=== PATIENT | female | born 1960 | race Caucasian/White ===

== ENCOUNTER 2018-02-16 11:01 | Emergency (ER) | payer MEDICARE ==
[2018-02-16 11:40] VITALS: O2SAT 97
[2018-02-16] MEDS ORDERED: MORPHINE SULFATE 4 MG INJ IV ONE ×2 (11:49→13:53)
[2018-02-16] MEDS ORDERED: Pepcid 20 MG VIAL IV ONE ×2 (11:49→11:56)
[2018-02-16] MEDS ORDERED: Zofran 4 MG/2 ML VIAL IV ONE (11:49)
[2018-02-16] MEDS ORDERED: Zofran 4 MG/2 ML VIAL ONE (11:55)
[2018-02-16] MEDS ORDERED: MORPHINE SULFATE 4 MG INJ ONE (11:56)
--- NOTE | 2018-02-16 12:01 | ERPHSYRPT ---
- History of Present Illness Time Seen by Provider: 02/16/18 11:53 Historian: patient Patient Subjective Stated Complaint: sudden onset of upper abd pain 15 min prior to arrival. hx of AAA. states pain is like cramping. denies any n/v at this time. Triage Nursing Assessment: patient to room per w/c. moaning and holding upper abd. restless on cart. skin w/d, color normal, resp easy. abd soft, tender upper abd. Physician History: The patient is a morbidly obese 57-year-old female with family complaining of onset of upper abdominal/chest pain prior to arrival. She denies nausea, vomiting, or diarrhea. She is having some difficulty breathing but it hurts to breath. She has sa known abdominal aortic aneurysm. She denies fever or chills. Past medical history significant for lupus anticoagulant, AAA, morbid obesity, hypertension, and high cholesterol. Timing/Duration: today, hour(s) (30 min), sudden, worse Activities at Onset: sleep Quality: sharpness, stabbing Abdominal Pain Onset Location: epigastric Pain Radiation: chest Severity of Pain-Max: severe Severity of Pain-Current: severe Modifying Factors: Improves With: nothing Associated Symptoms: shortness of breath, No nausea, No vomiting Previous symptoms: no prior history Allergies/Adverse Reactions: oxytetracycline [From Terramycin] Allergy (Verified 02/16/18 11:40) oxytetracycline HCl [From Terramycin] Allergy (Verified 02/16/18 11:40) Penicillins Allergy (Verified 02/16/18 11:40) Home Medications: Metoprolol Succinate [Toprol Xl] 100 mg PO DAILY 07/31/14 [History] Pramipexole Di-HCl [Mirapex] 1 mg PO HS 07/31/14 [History] Quinapril HCl 40 mg PO DAILY 07/31/14 [History] Rosuvastatin Calcium [Crestor] 20 mg PO HS 07/31/14 [History] Warfarin Sodium 5 mg [Coumadin 5 MG] 5 mg PO DAILY 07/31/14 [History] Duloxetine HCl [Cymbalta] 120 mg PO DAILY 02/16/18 [History] Temazepam 30 mg PO HSPRN PRN 02/16/18 [History] clonazePAM [Klonopin] 1 mg PO HS 02/16/18 [History] Hx Tetanus, Diphtheria Vaccination/Date Given: No Hx Influenza Vaccination/Date Given: Yes Hx Pneumococcal Vaccination/Date Given: Yes - Review of Systems Constitutional: No Fever, No Chills Eyes: No Symptoms Ears, Nose, & Throat: No Symptoms Respiratory: Dyspnea Cardiac: Chest Pain Abdominal/Gastrointestinal: Abdominal Pain, No Nausea, No Vomiting, No Diarrhea Genitourinary Symptoms: No Dysuria Musculoskeletal: No Back Pain, No Neck Pain Skin: No Rash Neurological: No Dizziness, No Focal Weakness, No Sensory Changes Psychological: No Symptoms Endocrine: No Symptoms Hematologic/Lymphatic: No Symptoms Immunological/Allergic: No Symptoms All Other Systems: Reviewed and Negative - Past Medical History Pertinent Past Medical History: Yes Neurological History: TIA ENT History: No Pertinent History Cardiac History: Hypertension Respiratory History: No Pertinent History Endocrine Medical History: Diabetes Type II Musculoskeletal History: Other GI Medical History: No Pertinent History History: No Pertinent History Psycho-Social History: Depression Female Reproductive Disorders: No Pertinent History Other Medical History: 2 LEAKY VALVES, LUPUS ANTICOAGULOPATHY - Past Surgical History Past Surgical History: Yes Cardiac: Cardiac Catheterization, Cardiac Stent Musculoskeletal: Orthopedic Surgery Female Surgical History: Hysterectomy, Dilation & Curettage Other Surgical History: CARPAL TUNNEL-RIGHT WRIST, RIGHT FOOT - Social History Smoking Status: Current every day smoker How long have you smoked: yrs Exposure to second hand smoke: No Drug Use: none Patient Lives Alone: Yes - Female History Hx Now: No - Nursing Vital Signs Nursing Vital Signs: Initial Vital Signs Temperature 97.9 F 02/16/18 11:27 Pulse Rate 81 02/16/18 11:27 Respiratory Rate 18 02/16/18 11:27 Blood Pressure 181/88 02/16/18 11:27 O2 Sat by Pulse Oximetry 97 02/16/18 11:27 Pain Scale Pain Intensity 8 - Physical Exam General Appearance: moderate distress, obese Eye Exam: PERRL/EOMI, eyes nml inspection Ears, Nose, Throat Exam: normal ENT inspection, pharynx normal, moist mucous membranes Neck Exam: normal inspection, non-tender, supple, full range of motion Respiratory Exam: normal breath sounds, lungs clear, No respiratory distress Cardiovascular Exam: regular rate/rhythm, normal heart sounds Gastrointestinal/Abdomen Exam: tenderness, No pulsatile mass Pelvic Exam: not done Rectal Exam: not done Back Exam: normal inspection, normal range of motion, No CVA tenderness, No vertebral tenderness Extremity Exam: normal inspection, normal range of motion, pelvis stable Neurologic Exam: alert, oriented x 3, cooperative, normal mood/affect, nml cerebellar function, sensation nml, No motor deficits Skin Exam: normal color, warm, dry SpO2 Interpretation: normal SpO2: 97 Oxygen Delivery: Room Air - Course EKG Interpreted by Me: RATE, Sinus Rhythm, NORMAL AXIS, NORMAL INTERVALS, NORMAL QRS, Other (no change compared to EKG from 08/01/14.) - CT Exams Chest CT Interpretation: Negative, Tele-radiologist Report (per Dr King), Other (aorta mildly arteriosclerotic without aneurysmal dilatation.) Abdomen/Pelvis CT Interpretation: Tele-radiologist Report (per Dr King.), Other (moderate aortoiliac calcifications without aneurysmal dilatation. bilateral renal cysts) Ordered Tests: Active Orders 24 hr Category Date Time Status EKG-ER Only STAT Care 02/16/18 11:49 Active IV Insertion STAT Care 02/16/18 11:49 Active ABDOMEN AND PELVIS W/0 CONTRAS [CT] Stat Exams 02/16/18 11:50 Completed CHEST WITHOUT CONTRAST [CT] Stat Exams 02/16/18 11:52 Completed CBC W DIFF Stat Lab 02/16/18 12:06 Completed CMP Stat Lab 02/16/18 12:06 Completed D-DIMER QUANTITATION Stat Lab 02/16/18 12:06 Completed LIPASE Stat Lab 02/16/18 12:06 Completed Lactic Acid Stat Lab 02/16/18 12:04 Completed Manual Differential NC Stat Lab 02/16/18 12:06 Completed PT INR [PROTIME WITH INR] Stat Lab 02/16/18 13:56 Completed TROPONIN Q3H Lab 02/16/18 12:06 Completed TROPONIN Q3H Lab 02/16/18 15:00 Ordered TROPONIN Q3H Lab 02/16/18 18:00 Ordered TROPONIN Q3H Lab 02/16/18 21:00 Ordered TROPONIN Q3H Lab 02/17/18 00:00 Ordered UA W/RFX UR CULTURE Stat Lab 02/16/18 11:50 Uncollected Medication Summary Discontinued Medications Generic Name Dose Route Start Last Admin Trade Name Freq PRN Reason Stop Dose Admin Famotidine 20 mg 02/16/18 11:49 02/16/18 11:59 Pepcid 20 Mg Vial IV 02/16/18 11:50 20 mg STAT ONE Administration Famotidine Confirm 02/16/18 11:56 Pepcid 20 Mg Vial Administered 02/16/18 11:57 Dose 20 mg IV .STK-MED ONE Morphine Sulfate 4 mg 02/16/18 11:49 02/16/18 11:59 Morphine Sulfate 4 Mg Inj IV 02/16/18 11:50 4 mg STAT ONE Administration Morphine Sulfate Confirm 02/16/18 11:56 Morphine Sulfate 4 Mg Inj Administered 02/16/18 11:57 Dose 4 mg .ROUTE .STK-MED ONE Morphine Sulfate 8 mg 02/16/18 13:53 Morphine Sulfate 4 Mg Inj IV 02/16/18 13:54 STAT ONE Ondansetron HCl 4 mg 02/16/18 11:49 02/16/18 12:00 Zofran 4 Mg/2 Ml Vial IV 02/16/18 11:50 4 mg STAT ONE Administration Ondansetron HCl Confirm 02/16/18 11:55 Zofran 4 Mg/2 Ml Vial Administered 02/16/18 11:56 Dose 4 mg .ROUTE .STK-MED ONE Lab/Rad Data: Laboratory Result Diagrams 02/16/18 12:06 02/16/18 12:06 Laboratory Results 02/16/18 02/16/18 02/16/18 Range/Units 13:56 12:06 12:06 WBC (4.0-10.5) K/mm3 RBC (4.1-5.4) M/mm3 Hgb (12.0-16.0) gm/dl Hct (35-47) % MCV (78-100) fl MCH (26-32) pg MCHC (32-36) g/dl RDW (11.5-14.0) % Plt Count (150-450) K/mm3 MPV (6-9.5) fl Absolute Granulocytes (1.4-6.9) PT 17.1 H (9.95-12.35) SECONDS INR 1.46 (0.8-3.0) D-Dimer 547 H* (215-500) ng/mL Sodium (137-145) mmol/L Potassium (3.5-5.1) mmol/L Chloride (98-107) mmol/L Carbon Dioxide (22-30) mmol/L Anion Gap (5-15) MEQ/L BUN (7-17) mg/dL Creatinine (0.52-1.04) mg/dL Estimated GFR ML/MIN Glucose (74-106) mg/dL Lactic Acid (0.4-2.0) Calcium (8.4-10.2) mg/dL Total Bilirubin (0.2-1.3) mg/dL AST (14-36) U/L ALT (0-35) U/L Alkaline Phosphatase (38-126) U/L Troponin I 0.019 (0.000-0.034) ng/mL Serum Total Protein (6.3-8.2) g/dL Albumin (3.5-5.0) g/dL Lipase (23-300) U/L 02/16/18 02/16/18 02/16/18 Range/Units 12:06 12:06 12:04 WBC 9.4 (4.0-10.5) K/mm3 RBC 4.01 L (4.1-5.4) M/mm3 Hgb 11.9 L (12.0-16.0) gm/dl Hct 37.3 (35-47) % MCV 93.0 (78-100) fl MCH 29.6 (26-32) pg MCHC 31.9 L (32-36) g/dl RDW 15.9 H (11.5-14.0) % Plt Count 121 L (150-450) K/mm3 MPV 10.9 H (6-9.5) fl Absolute Granulocytes 6.50 (1.4-6.9) PT (9.95-12.35) SECONDS INR (0.8-3.0) D-Dimer (215-500) ng/mL Sodium 144 (137-145) mmol/L Potassium 4.5 (3.5-5.1) mmol/L Chloride 110 H (98-107) mmol/L Carbon Dioxide 22 (22-30) mmol/L Anion Gap 16.0 H (5-15) MEQ/L BUN 27 H (7-17) mg/dL Creatinine 1.80 H (0.52-1.04) mg/dL Estimated GFR 30.7 ML/MIN Glucose 100 (74-106) mg/dL Lactic Acid 1.0 (0.4-2.0) Calcium 9.1 (8.4-10.2) mg/dL Total Bilirubin 0.40 (0.2-1.3) mg/dL AST 23 (14-36) U/L ALT 20 (0-35) U/L Alkaline Phosphatase 109 (38-126) U/L Troponin I (0.000-0.034) ng/mL Serum Total Protein 7.2 (6.3-8.2) g/dL Albumin 4.0 (3.5-5.0) g/dL Lipase 177 (23-300) U/L - Progress Progress: improved Progress Note: 02/16/18 14:32 I discussed pt with Dr Villarreal and Dr Jacobs Counseled pt/family regarding: lab results, diagnosis, rad results - Departure Time of Disposition: 14:30 Departure Disposition: Transfer (transfer to [facility] ER per Dr Chambers and PMD Dr Jacobs) Clinical Impression: Abdominal pain Condition: Stable Critical Care Time: No Referrals: HEMAL JACOBS [Primary Care Provider] -
[2018-02-16 12:14] LABS: Hematocrit 37.3 % (35-47); Hemoglobin 11.9 gm/dl (12.0-16.0); Mean Corpuscular Hgb Concent. 31.9 g/dl (32-36); Mean Platelet Volume 10.9 fl (6-9.5); Platelet Count 121 K/mm3 (150-450); Red Blood Count 4.01 M/mm3 (4.1-5.4); Red Cell Distribution Width 15.9 % (11.5-14.0); White Blood Count 9.4 K/mm3 (4.0-10.5)
[2018-02-16 12:27] LABS: Mean Corpuscular Hemoglobin 29.6 pg (26-32)
[2018-02-16 12:32] LABS: BILIRUBIN,TOTAL 0.4 mg/dL (0.2-1.3); Calcium 9.1 mg/dL (8.4-10.2); Creatinine 1 1.8 mg/dL (0.52-1.04); Potassium 4.5 mmol/L (3.5-5.1); Total Protein 7.2 g/dL (6.3-8.2)
--- NOTE | 2018-02-16 13:16 | XRAY ---
Indication: Short of breath. Lower chest/upper abdomen pain. Multiple contiguous axial images obtained through the chest without contrast as ordered. Comparison: None Mid to lower lungs demonstrates bilateral subsegmental atelectasis/scarring. Also mild bilateral dependent atelectasis and tiny calcified granuloma in the right middle and left lower lobes. No suspicious pulmonary mass, infiltrate, or effusion. Heart is enlarged. Aorta is mildly arteriosclerotic without aneurysmal dilatation. A few bilateral hilar and subcarinal calcified nodes. No pathologic mediastinal lymphadenopathy. Bony thorax intact with minimal degenerative changes throughout the spine. T10 vertebral hemangioma and superior T11 Schmorl node[address] CT abdomen reported separately. Impression: 1. Cardiomegaly, scattered atelectasis/scarring, and evidence for old granulomatous disease. 2. No acute cardiopulmonary abnormalities on this noncontrast exam. 3. Incidental T10 vertebral hemangioma and T11 Schmorl node. CT DI 21.10
--- NOTE | 2018-02-16 13:24 | XRAY ---
Indication: Short of breath. Lower chest/upper abdomen pain. Multiple contiguous axial images obtained through the abdomen and pelvis without contrast as ordered. Comparison: None CT chest reported separately. Study slightly degraded by respiration artifact. Noncontrasted stomach and bowel loops appear nonobstructed. Appendix not seen. No free fluid/air. There are multiple bilateral renal cysts, largest right mid to lower pole measuring 3.8 cm. Slightly more dense left mid to lower renal cortical cysts possibly more complex/viscus. Previous hysterectomy. Remaining liver, gallbladder, pancreas, spleen, adrenal glands, kidneys, ureters, and bladder appear unremarkable for noncontrast exam. Moderate aortoiliac calcifications without aneurysmal dilatation. Osseous structures intact. Small fatty umbilical hernia. Impression: 1. Bilateral renal cysts. Slightly dense left lower renal cysts possibly complex/viscus. Renal sonogram may yield further information if clinically warranted. 2. Small fatty umbilical hernia. 3. Remaining CT abdomen/pelvis without contrast exam is negative. CT DI 28.11
[2018-02-16 14:02] LABS: INR 1.46 (0.8-3.0)
[2018-02-16] MEDS ORDERED: MORPHINE SULFATE 10 MG/ML ONE (14:48)
[2018-02-16 15:32] VITALS: BP 140/41
[2018-02-16 15:35] VITALS: PULSE 76
== END 2018-02-16 16:15 | disposition short-term general hospital (02) ==
LOC: ED 11:01
DX: R10.9 Unspecified abdominal pain (principal); R07.9 Chest pain, unspecified; I71.4 Abdominal aortic aneurysm, without rupture; Z79.01 Long term (current) use of anticoagulants; Z79.899 Other long term (current) drug therapy
CPT/HCPCS: 36000; 36415; 71250; 74176; 80053; 83605; 83690; 84484; 85025; 85379; 85610; 93005; 96374; 96375; 96376; 99285; J2270; J2405

== ENCOUNTER 2018-03-31 21:45 | Emergency (ER) | payer MEDICARE ==
--- NOTE | 2018-03-31 22:06 | ERPHSYRPT ---
- History of Present Illness Time Seen by Provider: 03/31/18 21:50 Source: patient, family Exam Limitations: no limitations Physician History: 57 y/o white female with h/o stroke with chronic right side weakness and paresthesias, presents with pain under right breast for 2 days. sx worsening. pain in area with deep inspiration. no cough. no rash. pt still has gallbladder in place. Timing/Duration: day(s) (2), intermittent, worse Activities at Onset: none Severity of Dyspnea-Max: none Severity of Dyspnea-Current: none Possible Cause: occasional episodes (in last 2 days) Modifying Factors: Improves With: deep breath (worsens) Associated Symptoms: intermittent, chest pain/discomfort (right side), No fever , No loss of appetite, No wheezing, No hemoptysis, No calf pain, No lightheadedness, No leg swelling Allergies/Adverse Reactions: amoxicillin Allergy (Verified 03/31/18 22:04) oxytetracycline [From Terramycin] Allergy (Verified 02/16/18 11:40) oxytetracycline HCl [From Terramycin] Allergy (Verified 02/16/18 11:40) Penicillins Allergy (Verified 02/16/18 11:40) Home Medications: Metoprolol Succinate [Toprol Xl] 100 mg PO DAILY 07/31/14 [History] Pramipexole Di-HCl [Mirapex] 1 mg PO HS 07/31/14 [History] Quinapril HCl 40 mg PO DAILY 07/31/14 [History] Rosuvastatin Calcium [Crestor] 20 mg PO HS 07/31/14 [History] Warfarin Sodium 5 mg [Coumadin 5 MG] 5 mg PO DAILY 07/31/14 [History] Duloxetine HCl [Cymbalta] 120 mg PO DAILY 02/16/18 [History] Temazepam 30 mg PO HSPRN PRN 02/16/18 [History] clonazePAM [Klonopin] 1 mg PO HS 02/16/18 [History] Hx Tetanus, Diphtheria Vaccination/Date Given: No Hx Influenza Vaccination/Date Given: Yes Hx Pneumococcal Vaccination/Date Given: Yes - Review of Systems Constitutional: No Symptoms, No Fever Eyes: No Symptoms, No Discharge, No Eye Pain Ears, Nose, & Throat: No Symptoms, No Ear Pain, No Ear Discharge Respiratory: No Symptoms, No Cough, No Dyspnea, No Stridor, No Wheezing Cardiac: No Symptoms, No Chest Pain, No Palpitations, No Syncope Abdominal/Gastrointestinal: No Symptoms, No Abdominal Pain, No Nausea, No Vomiting, No Diarrhea Genitourinary Symptoms: No Symptoms, No Dysuria, No Frequency, No Hematuria Musculoskeletal: No Symptoms, Other (right chest wall pain) Skin: No Symptoms Neurological: No Symptoms Psychological: No Symptoms Endocrine: No Symptoms Hematologic/Lymphatic: No Symptoms Immunological/Allergic: No Symptoms All Other Systems: Reviewed and Negative - Past Medical History Pertinent Past Medical History: Yes Neurological History: TIA ENT History: No Pertinent History Cardiac History: Hypertension Respiratory History: No Pertinent History Endocrine Medical History: Diabetes Type II Musculoskeletal History: Other GI Medical History: No Pertinent History History: No Pertinent History Psycho-Social History: Depression Female Reproductive Disorders: No Pertinent History Other Medical History: 2 LEAKY VALVES, LUPUS ANTICOAGULOPATHY - Past Surgical History Past Surgical History: Yes Cardiac: Cardiac Catheterization, Cardiac Stent Respiratory: No Pertinent History Gastrointestinal: No Pertinent History Genitourinary: No Pertinent History Musculoskeletal: Orthopedic Surgery Female Surgical History: Hysterectomy, Dilation & Curettage Other Surgical History: CARPAL TUNNEL-RIGHT WRIST, RIGHT FOOT - Social History Smoking Status: Current every day smoker How long have you smoked: yrs Exposure to second hand smoke: No Drug Use: none Patient Lives Alone: Yes - Nursing Vital Signs Nursing Vital Signs: Initial Vital Signs Temperature 97.7 F 03/31/18 21:47 Pulse Rate 82 03/31/18 21:47 Blood Pressure 112/54 03/31/18 21:47 O2 Sat by Pulse Oximetry 95 03/31/18 21:47 Pain Scale Pain Intensity 6 - Physical Exam General Appearance: no apparent distress, alert, anxiety Eye Exam: PERRL/EOMI, No eyes nml inspection Ears, Nose, Throat Exam: hearing grossly normal, normal ENT inspection, normal pharynx Neck Exam: normal inspection, non-tender, supple, full range of motion Respiratory Exam: normal breath sounds, chest tenderness (right chest wall), lungs clear, airway intact, No respiratory distress, No accessory muscle use, No rhonchi, No wheezing, No stridor Cardiovascular/Chest Exam: normal heart sounds, regular rate/rhythm, murmur Abdominal/Gastrointestinal Exam: soft, normal bowel sounds, tenderness (? 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 STAT Care 03/31/18 22:12 Active IV Insertion STAT Care 03/31/18 22:08 Active CHEST 1 VIEW (PORTABLE) Stat Exams 03/31/18 22:12 Taken AMYLASE Stat Lab 03/31/18 22:27 Completed CBC W DIFF Stat Lab 03/31/18 22:27 Completed CMP Stat Lab 03/31/18 22:27 Completed NT PRO BNP Stat Lab 03/31/18 22:27 Completed PROTIME WITH INR Stat Lab 03/31/18 22:27 Completed Medication Summary Generic Name Dose Route Start Last Admin Trade Name Freq PRN Reason Stop Dose Admin Potassium Chloride 40 meq 04/01/18 23:21 Potassium Chl 40 Meq/30 Ml Oral Solution PO 04/01/18 23:22 STAT ONE Lab/Rad Data: Laboratory Result Diagrams 03/31/18 22:27 03/31/18 22:27 Laboratory Results 03/31/18 03/31/18 03/31/18 Range/Units 22:27 22:27 22:27 WBC (4.0-10.5) K/mm3 RBC (4.1-5.4) M/mm3 Hgb (12.0-16.0) gm/dl Hct (35-47) % MCV (78-100) fl MCH (26-32) pg MCHC (32-36) g/dl RDW (11.5-14.0) % Plt Count (150-450) K/mm3 MPV (6-9.5) fl Gran % (36.0-66.0) % Eos # (Auto) (0-0.5) Absolute Lymphs (auto) (1.0-4.6) Absolute Monos (auto) (0.0-1.3) Lymphocytes % (24.0-44.0) % Monocytes % (0.0-12.0) % Eosinophils % (0.00-5.0) % Basophils % (0.0-0.4) % Absolute Granulocytes (1.4-6.9) Basophils # (0-0.4) PT 53.6 H (9.95-12.35) SECONDS INR 4.54 H (0.8-3.0) Sodium 140 (137-145) mmol/L Potassium 2.9 L* (3.5-5.1) mmol/L Chloride 96 L (98-107) mmol/L Carbon Dioxide 29 (22-30) mmol/L Anion Gap 17.8 H (5-15) MEQ/L BUN 51 H (7-17) mg/dL Creatinine 3.08 H (0.52-1.04) mg/dL Estimated GFR 16.5 ML/MIN Glucose 137 H (74-106) mg/dL Calcium 9.2 (8.4-10.2) mg/dL Total Bilirubin 0.50 (0.2-1.3) mg/dL AST 16 (14-36) U/L ALT 17 (0-35) U/L Alkaline Phosphatase 111 (38-126) U/L NT-Pro-B Natriuret Pep 526 (0-900) pg/mL Serum Total Protein 7.2 (6.3-8.2) g/dL Albumin 4.1 (3.5-5.0) g/dL Amylase 98 (30-110) U/L 03/31/18 Range/Units 22:27 WBC 12.9 H (4.0-10.5) K/mm3 RBC 3.81 L (4.1-5.4) M/mm3 Hgb 11.6 L (12.0-16.0) gm/dl Hct 35.7 (35-47) % MCV 93.7 (78-100) fl MCH 30.4 (26-32) pg MCHC 32.5 (32-36) g/dl RDW 16.3 H (11.5-14.0) % Plt Count 193 (150-450) K/mm3 MPV 10.6 H (6-9.5) fl Gran % 67.3 H (36.0-66.0) % Eos # (Auto) 0.45 (0-0.5) Absolute Lymphs (auto) 2.92 (1.0-4.6) Absolute Monos (auto) 0.83 (0.0-1.3) Lymphocytes % 22.6 L (24.0-44.0) % Monocytes % 6.4 (0.0-12.0) % Eosinophils % 3.5 (0.00-5.0) % Basophils % 0.2 (0.0-0.4) % Absolute Granulocytes 8.68 H (1.4-6.9) Basophils # 0.02 (0-0.4) PT (9.95-12.35) SECONDS INR (0.8-3.0) Sodium (137-145) mmol/L Potassium (3.5-5.1) mmol/L Chloride (98-107) mmol/L Carbon Dioxide (22-30) mmol/L Anion Gap (5-15) MEQ/L BUN (7-17) mg/dL Creatinine (0.52-1.04) mg/dL Estimated GFR ML/MIN Glucose (74-106) mg/dL Calcium (8.4-10.2) mg/dL Total Bilirubin (0.2-1.3) mg/dL AST (14-36) U/L ALT (0-35) U/L Alkaline Phosphatase (38-126) U/L NT-Pro-B Natriuret Pep (0-900) pg/mL Serum Total Protein (6.3-8.2) g/dL Albumin (3.5-5.0) g/dL Amylase (30-110) U/L - Progress Progress: re-examined, unchanged Air Movement: good Progress Note: 03/31/18 23:52 pt states she has had keflex in past without any issues. Counseled pt/family regarding: lab results, diagnosis, need for follow-up, rad results - Departure Departure Disposition: Home Clinical Impression: Leukocytosis, Hypokalemia, Elevated INR Condition: Stable Critical Care Time: No Referrals: HEMAL BOYD [Primary Care Provider] - Additional Instructions: drink plenty of fluids. take medications as prescribed. follow up with lab on tuesday04/03/18 to recheck potassium level. follow up with primary doctor on tuesday04/03/18 for further management Prescriptions: Cefdinir 300 mg PO BID 7 Days #14 capsule
[2018-03-31 22:30] LABS: BASOPHIL % 0.2 % (0.0-0.4); Basophil (Absolute #) 0.02 (0-0.4); Eosinophil % 3.5 % (0.00-5.0); Eosinophil (Absolute #) 0.45 (0-0.5); Granulocyte Absolute (ANC) 8.68 (1.4-6.9); Granulocytes % 67.3 % (36.0-66.0); Hematocrit 35.7 % (35-47); Hemoglobin 11.6 gm/dl (12.0-16.0); Lymphocyte (Absolute #) 2.92 (1.0-4.6); Lymphocytes % 22.6 % (24.0-44.0); Mean Cell Volume 93.7 fl (78-100); Mean Corpuscular Hemoglobin 30.4 pg (26-32); Mean Corpuscular Hgb Concent. 32.5 g/dl (32-36); Mean Platelet Volume 10.6 fl (6-9.5); Monocyte (Absolute #) 0.83 (0.0-1.3); Monocytes % 6.4 % (0.0-12.0); Platelet Count 193 K/mm3 (150-450); Red Blood Count 3.81 M/mm3 (4.1-5.4); Red Cell Distribution Width 16.3 % (11.5-14.0); White Blood Count 12.9 K/mm3 (4.0-10.5)
[2018-03-31 22:44] LABS: INR 4.54 (0.8-3.0)
[2018-03-31 23:07] LABS: ALBUMIN 4.1 g/dL (3.5-5.0); ANION GAP 17.8 MEQ/L (5-15); BILIRUBIN,TOTAL 0.5 mg/dL (0.2-1.3); Calcium 9.2 mg/dL (8.4-10.2); Creatinine 1 3.08 mg/dL (0.52-1.04); Total Protein 7.2 g/dL (6.3-8.2)
[2018-03-31 23:15] LABS: Potassium 2.9 mmol/L (3.5-5.1)
[2018-03-31] MEDS ORDERED: POTASSIUM CHLORIDE 20 MEQ POWDER FOR ORAL SOL ONE (23:54)
[2018-04-01] MEDS ORDERED: ROCEPHIN 1 Gm-D5w 50 ml Bag** 1 G/50 ML IVPB IV STA (00:03)
[2018-04-01] MEDS ORDERED: POTASSIUM CHLORIDE 20 MEQ POWDER FOR ORAL SOL ONE (00:10)
[2018-04-01] MEDS ORDERED: ROCEPHIN 1 Gm-D5w 50 ml Bag** 1 G/50 ML IVPB IV ONE (00:13)
[2018-04-01] MEDS ORDERED: POTASSIUM CHLORIDE 20 MEQ POWDER FOR ORAL SOL PO ONE (00:15)
[2018-04-01 01:02] VITALS: BP 138/67; PULSE 65; O2SAT 96
--- NOTE | 2018-04-01 08:00 | XRAY ---
Indication: Right chest pain. No known injury. Comparison: May 21, 2016. Portable chest less inflated again with minimal bibasilar subsegmental atelectasis/scarring and a few scattered calcified granulomas. No focal infiltrate, consolidation, or large effusion. Heart is not enlarged. Bony thorax intact again with mild osteopenia and degenerative changes. Impression: Stable nonacute chest with chronic features.
[2018-04-01] MEDS ORDERED: POTASSIUM CHL 40 MEQ/30 ML ORAL SOLUTION PO ONE (23:21)
== END 2018-04-01 01:08 | disposition home or self-care (01) ==
LOC: ED 21:45
DX: D72.829 Elevated white blood cell count, unspecified (principal); E87.6 Hypokalemia; D68.9 Coagulation defect, unspecified; R53.1 Weakness; Z86.73 Personal history of transient ischemic attack (TIA), and cerebral infarction without residual deficits; Z79.01 Long term (current) use of anticoagulants; Z79.899 Other long term (current) drug therapy
CPT/HCPCS: 36000; 36415; 71045; 80053; 82150; 83880; 85025; 85610; 96365; 99284; J0696

== ENCOUNTER 2018-05-14 18:29 | Emergency (ER) | payer MEDICARE ==
[2018-05-14 18:51] VITALS: BP 138/51; O2SAT 95
[2018-05-14] MEDS ORDERED: NORCO 5/325 MG PO ONE ×3 (19:39→21:17)
--- NOTE | 2018-05-14 19:44 | ERPHSYRPT ---
- History of Present Illness Time Seen by Provider: 05/14/18 19:36 Source: patient Exam Limitations: no limitations Patient Subjective Stated Complaint: right great toe red and swollen, rates pain 8/10 Triage Nursing Assessment: Pt c/o of right great toe pain, toe is red and swollen, denies any injury, pulses normal, vitals wnl, rates pain 8/10, denies any other issues at this time Physician History: 57-year-old white female with history of diabetes, atherosclerotic coronary artery disease, high blood pressure, lupus. Patient arrives with complaint of pain in her right great toe symptoms since today denies injury. Patient does state that she's had fungal infection in her toe before. Past medical history includes TIA, diabetes, high blood pressure, depression, to leaky heart valves, lupus antibody, atherosclerotic coronary artery disease. Past surgical history includes cardiac catheter, cardiac stent, hysterectomy, D& C, orthopedic surgery, carpal tunnel release, right right wrist surgery Method of Injury: unknown Occurred: this morning Quality: constant Lower Extremities Pain: 1st toe: right Modifying Factors: Improves With: nothing Associated Symptoms: none Allergies/Adverse Reactions: amoxicillin Allergy (Verified 05/14/18 18:51) oxytetracycline [From Terramycin] Allergy (Verified 05/14/18 18:51) oxytetracycline HCl [From Terramycin] Allergy (Verified 05/14/18 18:51) Penicillins Allergy (Verified 05/14/18 18:51) Home Medications: Metoprolol Succinate [Toprol Xl] 100 mg PO DAILY 07/31/14 [History] Pramipexole Di-HCl [Mirapex] 1 mg PO HS 07/31/14 [History] Quinapril HCl 40 mg PO DAILY 07/31/14 [History] Rosuvastatin Calcium [Crestor] 20 mg PO HS 07/31/14 [History] Warfarin Sodium 5 mg [Coumadin 5 MG] 5 mg PO DAILY 07/31/14 [History] Duloxetine HCl [Cymbalta] 120 mg PO DAILY 02/16/18 [History] Temazepam 30 mg PO HSPRN PRN 02/16/18 [History] clonazePAM [Klonopin] 1 mg PO HS 02/16/18 [History] Duloxetine HCl [Cymbalta] 120 mg PO DAILY 05/14/18 [History] Hx Tetanus, Diphtheria Vaccination/Date Given: No Hx Influenza Vaccination/Date Given: Yes Hx Pneumococcal Vaccination/Date Given: Yes - Review of Systems Constitutional: No Fever, No Chills Eyes: No Symptoms Ears, Nose, & Throat: No Symptoms Respiratory: No Cough, No Dyspnea Cardiac: No Chest Pain, No Edema, No Syncope Abdominal/Gastrointestinal: No Abdominal Pain, No Nausea, No Vomiting, No Diarrhea Genitourinary Symptoms: No Dysuria Musculoskeletal: Other (pain and erythema right great toe) Skin: Other ( right great toe slight erythema dorsally), No Rash Neurological: No Dizziness, No Focal Weakness, No Sensory Changes Psychological: No Symptoms Endocrine: No Symptoms All Other Systems: Reviewed and Negative - Past Medical History Pertinent Past Medical History: Yes Neurological History: TIA ENT History: No Pertinent History Cardiac History: Hypertension Respiratory History: No Pertinent History Endocrine Medical History: Diabetes Type II Musculoskeletal History: Other GI Medical History: No Pertinent History History: No Pertinent History Psycho-Social History: Depression Female Reproductive Disorders: No Pertinent History Other Medical History: 2 LEAKY VALVES, LUPUS ANTICOAGULOPATHY - Past Surgical History Past Surgical History: Yes Cardiac: Cardiac Catheterization, Cardiac Stent Respiratory: No Pertinent History Gastrointestinal: No Pertinent History Genitourinary: No Pertinent History Musculoskeletal: Orthopedic Surgery Female Surgical History: Hysterectomy, Dilation & Curettage Other Surgical History: CARPAL TUNNEL-RIGHT WRIST, RIGHT FOOT - Social History Smoking Status: Former smoker How long have you smoked: yrs Exposure to second hand smoke: Yes Drug Use: none Patient Lives Alone: Yes - Female History Hx Now: No - Nursing Vital Signs Nursing Vital Signs: Initial Vital Signs Temperature 98.3 F 05/14/18 18:41 Pulse Rate 66 05/14/18 18:41 Blood Pressure 138/51 05/14/18 18:41 O2 Sat by Pulse Oximetry 95 05/14/18 18:41 Pain Scale Pain Intensity 6 - Physical Exam General Appearance: mild distress Eyes, Ears, Nose, Throat Exam: moist mucous membranes Neck Exam: non-tender, supple Cardiovascular/Respiratory Exam: chest non-tender, normal breath sounds, regular rate/rhythm, no respiratory distress Gastrointestinal/Abdominal Exam: non-tender, guarding Hips Exam: bilateral: non-tender, normal inspection, normal range of motion, no evidence of injury Legs Exam: bilateral leg: non-tender, normal inspection, normal range of motion , no evidence of injury Knees Exam: bilateral knee: non-tender, normal inspection, normal range of motion, no evidence of injury Ankle Exam: bilateral ankle: non-tender, normal inspection, normal range of motion, no evidence of injury Foot Exam: right foot: other (right great toe tender with palpation, decreased range of motion right great secondary to pain, mild erythema right dorsal great toe.), left foot: non-tender, normal inspection, normal range of motion, no evidence of injury Neuro/Tendon Exam: normal sensation, normal motor functions Mental Status Exam: alert, oriented x 3, cooperative Skin Exam: warm, dry, other (mild erythema right dorsal great toe) SpO2 Interpretation: normal (95%) SpO2: 95 Oxygen Delivery: Room Air - Course Nursing assessment & vital signs reviewed: Yes - Radiology Exams Right Foot X-ray Interpretation: Interpreted by me, Negative, No Fracture, No Subluxation, Other (x ray right foot: no fracture, no0 subluxation, hardware in place) Ordered Tests: Active Orders 24 hr Category Date Time Status Splint STAT Care 05/14/18 20:55 Active FOOT (MINIMUM 3 VIEWS) Stat Exams 05/14/18 19:39 Taken BMP Stat Lab 05/14/18 19:59 Completed CBC W DIFF Stat Lab 05/14/18 19:59 Completed Uric Acid Stat Lab 05/14/18 19:59 Completed Medication Summary Discontinued Medications Generic Name Dose Route Start Last Admin Trade Name Freq PRN Reason Stop Dose Admin Hydrocodone Bitart/Acetaminophen 1 tab 05/14/18 19:39 05/14/18 19:50 [place] 5/325 Mg PO 05/14/18 19:40 1 tab STAT ONE Administration Hydrocodone Bitart/Acetaminophen Confirm 05/14/18 19:49 [place] 5/325 Mg Administered 05/14/18 19:50 Dose 1 tab .ROUTE .STK-MED ONE Hydrocodone Bitart/Acetaminophen 1 tab 05/14/18 20:40 05/14/18 20:45 [place] 5/325 Mg PO 05/14/18 20:41 1 tab STAT ONE Administration Hydrocodone Bitart/Acetaminophen Confirm 05/14/18 20:41 [place] 5/325 Mg Administered 05/14/18 20:42 Dose 1 tab .ROUTE .STK-MED ONE Ceftriaxone Sodium 1,000 mg 05/14/18 20:39 Rocephin 1000 Mg Inj IM 05/14/18 20:40 STAT ONE Ceftriaxone Sodium Confirm 05/14/18 20:41 Rocephin 1000 Mg Inj Administered 05/14/18 20:42 Dose 1,000 mg .ROUTE .STK-MED ONE Prednisone 40 mg 05/14/18 20:55 Deltasone 20 Mg PO 05/14/18 20:56 STAT ONE Lab/Rad Data: Laboratory Result Diagrams 05/14/18 19:59 05/14/18 19:59 Laboratory Results 05/14/18 05/14/18 05/14/18 Range/Units 19:59 19:59 19:59 WBC 12.5 H (4.0-10.5) K/mm3 RBC 3.78 L (4.1-5.4) M/mm3 Hgb 11.1 L (12.0-16.0) gm/dl Hct 36.1 (35-47) % MCV 95.5 (78-100) fl MCH 29.3 (26-32) pg MCHC 30.7 L (32-36) g/dl RDW 15.5 H (11.5-14.0) % Plt Count 225 (150-450) K/mm3 MPV 10.6 H (6-9.5) fl Gran % 70.7 H (36.0-66.0) % Eos # (Auto) 0.35 (0-0.5) Absolute Lymphs (auto) 2.56 (1.0-4.6) Absolute Monos (auto) 0.73 (0.0-1.3) Lymphocytes % 20.5 L (24.0-44.0) % Monocytes % 5.8 (0.0-12.0) % Eosinophils % 2.8 (0.00-5.0) % Basophils % 0.2 (0.0-0.4) % Absolute Granulocytes 8.82 H (1.4-6.9) Basophils # 0.03 (0-0.4) Sodium 141 (137-145) mmol/L Potassium 3.9 (3.5-5.1) mmol/L Chloride 102 (98-107) mmol/L Carbon Dioxide 32 H (22-30) mmol/L Anion Gap 11.9 (5-15) MEQ/L BUN 50 H (7-17) mg/dL Creatinine 1.84 H (0.52-1.04) mg/dL Estimated GFR 29.9 ML/MIN Glucose 105 (74-106) mg/dL Uric Acid 12.0 H (2.6-6.0) mg/dL Calcium 9.5 (8.4-10.2) mg/dL - Progress Progress: improved Progress Note: 05/14/18 20:57 57-year-old white female arrives with complaint of pain right great toe erythema dorsal right great toe. No injury symptoms since today. Patient with elevated uric acid level of 12.0 patient's white count 12.5 hemoglobin 11.1 hematocrit 36.1 platelets 225 X-ray right foot no fractures no subluxation (my reading). Patient with history of diabetes. Patient felt to be high risk for infection despite the elevated uric acid level. Therefore patient given Rocephin 1 g IM will write for Keflex 500 mg every 6 hours for [address] patient on prednisone tapering dose. And [place]. Will place postop shoe. Patient advised follow-up with her family doctor. Unable to give patient colchicine or nonsteroidals secondary to interaction with her medications. Patient has stated allergy to amoxicillin and penicillin however she states she is able to take Keflex. Has had Rocephin in the past. - Departure Time of Disposition: 21:00 Departure Disposition: Home Clinical Impression: Pain of right great toe, Acute gouty arthritis Condition: Fair Critical Care Time: No Referrals: HEMAL BOYD [Primary Care Provider] - Additional Instructions: Return home. Keflex 500 mg orally every 6 hours for 7 days. Elevate right foot 24-48 hours cold packs to area. Prednisone, [place] as prescribed. Follow-up with your family doctor. Return for acute distress or for severe symptoms. Monitor your blood sugars carefully. Prescriptions: Cephalexin Mh 500 mg [Keflex 500 mg] 500 mg PO Q6H #28 capsule Hydrocodone/Acetaminophen [[place] 5-325 Tablet] 1 tab PO Q4-6HPRN PRN #12 tablet MDD 6 tableta PRN Reason: Pain
[2018-05-14] MEDS ORDERED: NORCO 5/325 MG ONE ×3 (19:49→21:19)
[2018-05-14 20:22] LABS: ANION GAP 11.9 MEQ/L (5-15); BASOPHIL % 0.2 % (0.0-0.4); Basophil (Absolute #) 0.03 (0-0.4); Calcium 9.5 mg/dL (8.4-10.2); Creatinine 1 1.84 mg/dL (0.52-1.04); Eosinophil % 2.8 % (0.00-5.0); Eosinophil (Absolute #) 0.35 (0-0.5); Granulocyte Absolute (ANC) 8.82 (1.4-6.9); Granulocytes % 70.7 % (36.0-66.0); Hematocrit 36.1 % (35-47); Hemoglobin 11.1 gm/dl (12.0-16.0); Lymphocyte (Absolute #) 2.56 (1.0-4.6); Lymphocytes % 20.5 % (24.0-44.0); Mean Cell Volume 95.5 fl (78-100); Mean Corpuscular Hemoglobin 29.3 pg (26-32); Mean Corpuscular Hgb Concent. 30.7 g/dl (32-36); Mean Platelet Volume 10.6 fl (6-9.5); Monocyte (Absolute #) 0.73 (0.0-1.3); Monocytes % 5.8 % (0.0-12.0); Platelet Count 225 K/mm3 (150-450); Potassium 3.9 mmol/L (3.5-5.1); Red Blood Count 3.78 M/mm3 (4.1-5.4); Red Cell Distribution Width 15.5 % (11.5-14.0); White Blood Count 12.5 K/mm3 (4.0-10.5)
[2018-05-14] MEDS ORDERED: Rocephin 1000 MG INJ IM ONE (20:39)
[2018-05-14] MEDS ORDERED: Rocephin 1000 MG INJ ONE (20:41)
[2018-05-14] MEDS ORDERED: DELTASONE 20 MG PO ONE (20:55)
[2018-05-14] MEDS ORDERED: DELTASONE 20 MG ONE (20:58)
[2018-05-14 21:00] VITALS: PULSE 56
--- NOTE | 2018-05-15 08:41 | XRAY ---
Indication: Great toe pain, erythema, and swelling. No known injury. Comparison: None 3 nonweightbearing views of the right foot demonstrates old 5th metatarsal fracture with intact orthopedic screw. No other bony, articular, or soft tissue abnormalities.
== END 2018-05-14 21:26 | disposition home or self-care (01) ==
LOC: ED 18:29
DX: M79.674 Pain in right toe(s) (principal); M10.9 Gout, unspecified; E11.9 Type 2 diabetes mellitus without complications; F32.9 Major depressive disorder, single episode, unspecified; I38 Endocarditis, valve unspecified; Z79.01 Long term (current) use of anticoagulants; Z79.899 Other long term (current) drug therapy; Z86.73 Personal history of transient ischemic attack (TIA), and cerebral infarction without residual deficits; I25.10 Atherosclerotic heart disease of native coronary artery without angina pectoris; I10 Essential (primary) hypertension
CPT/HCPCS: 36415; 73630; 80048; 84550; 85025; 96372; 99284; J0696; A9270-GY

== ENCOUNTER 2018-10-20 18:12 | Emergency (ER) | payer MEDICARE ==
[2018-10-20] MEDS ORDERED: KEFLEX 500 MG ONE (18:29)
[2018-10-20 18:31] VITALS: O2SAT 97
[2018-10-20] MEDS: KEFLEX 500 MG PO ONE (18:31)
--- NOTE | 2018-10-20 18:34 | ERPHSYRPT ---
- History of Present Illness Time Seen by Provider: 10/20/18 18:27 Source: patient Exam Limitations: no limitations Physician History: 58-year-old white female arrives with complaint of hand pain patient states she had an insect bite overlying her right second metacarpal phalangeal joint dorsally she has been having erythema pain and itching to the area. She has no fevers no nausea no vomiting. Past medical history includes TIA, gout, high blood pressure, diabetes type 2, depression, leaky valves, lupus anticoagulant antibiotics. Past surgical history includes cardiac catheter, cardiac stent, orthopedic surgery, hysterectomy, D&C, carpal tunnel right wrist, right foot surgery Social history former smoker denies tobacco alcohol or illicit drug use Occurred: days ago (2 days ago) Method of Injury: other (insect bite) Severity of Pain-Max: moderate Severity of Pain-Current: mild Extremities Pain Location: hand: left (erythema and pain overlying the second dorsal MCP joint) Modifying Factors: Improves With: nothing Associated Symptoms: none, No back pain, No chills, No chest discomfort, No chest pain, No dyspnea, No jaw pain, No nausea, No neck pain, No short of breath , No vomiting Allergies/Adverse Reactions: amoxicillin Allergy (Verified 05/14/18 18:51) oxytetracycline [From Terramycin] Allergy (Verified 05/14/18 18:51) oxytetracycline HCl [From Terramycin] Allergy (Verified 05/14/18 18:51) Penicillins Allergy (Verified 05/14/18 18:51) Home Medications: Metoprolol Succinate [Toprol Xl] 100 mg PO DAILY 07/31/14 [History] Pramipexole Di-HCl [Mirapex] 1 mg PO HS 07/31/14 [History] Quinapril HCl 40 mg PO DAILY 07/31/14 [History] Rosuvastatin Calcium [Crestor] 20 mg PO HS 07/31/14 [History] Warfarin Sodium 5 mg [Coumadin 5 MG] 5 mg PO DAILY 07/31/14 [History] Duloxetine HCl [Cymbalta] 120 mg PO DAILY 02/16/18 [History] Temazepam 30 mg PO HSPRN PRN 02/16/18 [History] clonazePAM [Klonopin] 1 mg PO HS 02/16/18 [History] Duloxetine HCl [Cymbalta] 120 mg PO DAILY 05/14/18 [History] Hx Tetanus, Diphtheria Vaccination/Date Given: No Hx Influenza Vaccination/Date Given: Yes Hx Pneumococcal Vaccination/Date Given: Yes - Review of Systems Constitutional: No Fever, No Chills Eyes: No Symptoms Ears, Nose, & Throat: No Symptoms Respiratory: No Cough, No Dyspnea Cardiac: No Chest Pain, No Edema, No Syncope Abdominal/Gastrointestinal: No Abdominal Pain, No Nausea, No Vomiting, No Diarrhea Genitourinary Symptoms: No Dysuria Musculoskeletal: Joint Redness, Joint Pain, Other (erythema and pain overlying dorsal left second MCP joint insect bite to the area), No Arthralgias, No Back Pain, No Neck Pain, No Deformity, No Fall, No Injury, No Joint Swelling, No Myalgias Skin: Other (insect bite left hand overlying metacarpal phalangeal joint dorsally), No Decubiti, No Induration, No Pruritis, No Rash, No Skin Lesions, No Dryness Neurological: No Dizziness, No Focal Weakness, No Sensory Changes Psychological: No Symptoms Endocrine: No Symptoms All Other Systems: Reviewed and Negative - Past Medical History Pertinent Past Medical History: Yes Neurological History: TIA ENT History: No Pertinent History Cardiac History: Coronary Artery Disease, Hypertension, Myocardial Infarction ( [place]) Respiratory History: CHF, Sleep Apnea Endocrine Medical History: Other Musculoskeletal History: Arthritis GI Medical History: No Pertinent History History: No Pertinent History Psycho-Social History: Depression Female Reproductive Disorders: No Pertinent History Other Medical History: LUPUS ANTICOAGULANT DISORDER, MORBID OBESITY, GOUT, ANXIETY, DEPRESSION, VENTRICULAR ARRHYTHMIA, CKD STAGE 4, OSTEOPOROSIS, HYPERGLYCEMIA, FRACTURE PATELLA 2015 - Past Surgical History Past Surgical History: Yes Cardiac: Cardiac Catheterization, Cardiac Stent Respiratory: No Pertinent History Gastrointestinal: No Pertinent History Genitourinary: No Pertinent History Musculoskeletal: Orthopedic Surgery Female Surgical History: Hysterectomy, Dilation & Curettage Other Surgical History: CARPAL TUNNEL-RIGHT WRIST, RIGHT FOOT - Social History Smoking Status: Former smoker How long have you smoked: yrs Exposure to second hand smoke: Yes Drug Use: none Patient Lives Alone: Yes - Physical Exam General Appearance: alert Eyes, Ears, Nose, Throat Exam: moist mucous membranes Neck Exam: non-tender, supple Cardiovascular/Respiratory Exam: chest non-tender, normal breath sounds, regular rate/rhythm, no respiratory distress Abdominal Exam: non-tender, soft, no organomegaly, no hernia, No guarding, No tenderness Back Exam: normal inspection, No vertebral tenderness Shoulder Exam: normal inspection, non-tender, no evidence of injury, normal ROM , No bone tenderness Elbow/Forearm Exam: normal inspection, non-tender, no evidence of injury, normal ROM, No bone tenderness Wrist Exam: normal inspection, non-tender, no evidence of injury, normal ROM, No bone tenderness Hand Exam: normal ROM, soft tissue tenderness, No normal inspection (left hand mild erythema and slight edema overlying left dorsal second MCP joint), No non- tender, No abrasions, No asymmetry, No bone tenderness, No deformity, No ecchymosis, No limited ROM DTR - Upper Extremity Exam: tricep (R): 2+, tricep (L): 2+ Neuro/Tendon Exam: normal sensation, normal motor functions Mental Status Exam: alert, oriented x 3, cooperative Skin Exam: other (mild erythema and slight edema overlying left second MCP joint dorsally) SpO2 Interpretation: normal (97%) - Course Nursing assessment & vital signs reviewed: Yes Ordered Tests: Medication Summary Generic Name Dose Route Start Last Admin Trade Name Freq PRN Reason Stop Dose Admin Cephalexin HCl 500 mg 10/20/18 18:26 Keflex 500 Mg PO 10/20/18 18:27 STAT ONE - Progress Progress: improved Progress Note: 10/20/18 18:32 58-year-old white female with history of gout, TIA, high blood pressure, diabetes type 2, depression, leaky heart valves, lupus anticoagulant. Patient states she had an insect bite to her dorsal left hand overlying the MCP joint #2. She states the area is somewhat tender she has mild erythema to the area slight edema. Patient states she took some Benadryl yesterday patient has a prescription which she filled on October 17, 2018 for hydrocodone No. 21 tablets are 5/325 these are prescribed by her nurse practitioner. Will go ahead and place patient on Keflex she has a listed allergy for penicillin however she is taking Keflex without problems in the past. Patient will be advised to put cold packs to the area take Benadryl 50 mg every 6 hours as needed. Follow-up with her family doctor if symptoms are worse, no better in 24-48 hours or persist longer than 72 hours. - Departure Departure Disposition: Home Clinical Impression: Insect bite of left hand Qualifiers: Encounter type: initial encounter Qualified Code(s): S60.562A - Insect bite ( nonvenomous) of left hand, initial encounter; W57.XXXA - Bitten or stung by nonvenomous insect and other nonvenomous arthropods, initial encounter Condition: Fair Critical Care Time: No Referrals: CON MORALES [Primary Care Provider] - Additional Instructions: Return home. Cold packs to area 24-48 hours. Benadryl 50 mg orally every 6 hours as needed. Keflex 500 mg orally every 6 hours 7 days. Follow-up with your family doctor if symptoms worse, no better in 24-48 hours or persist longer than 72 hours. Return for acute distress or for severe symptoms. Prescriptions: Cephalexin Mh 500 mg [Keflex 500 mg] 500 mg PO Q6H #28
[2018-10-20] MEDS: Adacel Vial IM ONE (18:39)
[2018-10-20] MEDS ORDERED: Adacel Vial IM ONE (18:40)
[2018-10-20 18:50] VITALS: BP 143/76; PULSE 76
== END 2018-10-20 18:48 | disposition home or self-care (01) ==
LOC: ED 18:12
DX: S60.562A Insect bite (nonvenomous) of left hand, initial encounter (principal); W57.XXXA Bitten or stung by nonvenomous insect and other nonvenomous arthropods, initial encounter; M79.641 Pain in right hand; E11.9 Type 2 diabetes mellitus without complications; I38 Endocarditis, valve unspecified; I25.10 Atherosclerotic heart disease of native coronary artery without angina pectoris; Z86.73 Personal history of transient ischemic attack (TIA), and cerebral infarction without residual deficits; Z79.01 Long term (current) use of anticoagulants; Z79.899 Other long term (current) drug therapy; G47.30 Sleep apnea, unspecified; I50.9 Heart failure, unspecified; I25.2 Old myocardial infarction; M19.90 Unspecified osteoarthritis, unspecified site; F32.9 Major depressive disorder, single episode, unspecified; E66.01 Morbid (severe) obesity due to excess calories; M10.9 Gout, unspecified; F41.9 Anxiety disorder, unspecified; I12.9 Hypertensive chronic kidney disease with stage 1 through stage 4 chronic kidney disease, or unspecified chronic kidney disease; N18.4 Chronic kidney disease, stage 4 (severe); M81.0 Age-related osteoporosis without current pathological fracture
CPT/HCPCS: 90471; 90715; 99283; A9270-GY

== ENCOUNTER 2019-05-11 10:40 | Observation (INO) | payer MEDICARE ==
[2019-05-11] MEDS ORDERED: Zofran 4 MG/2 ML VIAL IV PRN (12:27)
[2019-05-11 12:34] LABS: INFLUENZA A NEGATIVE (NEGATIVE); INFLUENZA B NEGATIVE (NEGATIVE); RESPIRATORY SYNCTIAL VIRUS NEGATIVE (Negative)
[2019-05-11] MEDS: ULTRAM 50 MG PO PRN ×2 (13:06→20:54)
[2019-05-11] MEDS: Sodium Chloride 0.9% 1000 ML 1,000 ML IV SCH (13:06)
[2019-05-11 14:21] LABS: Appearance CLEAR (CLEAR); Bilirubin NEGATIVE (NEGATIVE); Blood NEGATIVE Ery/ul (0-5); Epithelial Cells RARE /HPF (FEW); Glucose NEGATIVE (NEGATIVE); Ketones NEGATIVE (NEGATIVE); Leukocyte Esterase NEGATIVE (NEGATIVE); Mucus SLIGHT /HPF (NEGATIVE); Nitrite NEGATIVE (NEGATIVE); Protein,Urine Dip 30 (Negative); Specific Gravity 1.015 (1.005-1.025); Urobilinogen NEGATIVE mg/dL (0-1)
[2019-05-11] MEDS ORDERED: Nitrostat 0.4 MG Tablet SL PRN (16:30)
[2019-05-11 16:49] LABS: Amphetamine,Urine NEGATIVE (NEGATIVE); Barbiturate,Urine NEGATIVE (NEGATIVE); Benzodiazepine,Urine NEGATIVE (NEGATIVE); Cocaine,Urine NEGATIVE (NEGATIVE); Methadone,Urine NEGATIVE (NEGATIVE); Opiate,Urine NEGATIVE (NEGATIVE); PCP,Urine NEGATIVE (NEGATIVE); THC,Urine POSITIVE (NEGATIVE)
[2019-05-11] MEDS ORDERED: MEDICATION INTERVENTION PO SCH (17:00)
[2019-05-11] MEDS: Neurontin 400 MG PO SCH ×2 (17:11→20:54)
[2019-05-11] MEDS: Coumadin 5 MG PO SCH (17:11)
[2019-05-11 18:13] LABS: INR 1.77 (0.8-3.0); PROTIME 20.2 SECONDS (9.95-12.35)
[2019-05-11] MEDS ORDERED: Mirapex 0.5 MG Tablet ONE (18:37)
[2019-05-11] MEDS: Mirapex 0.5 MG Tablet PO SCH (18:39)
[2019-05-11] MEDS: ZOCOR 20MG PO SCH (20:54)
[2019-05-11] MEDS: Coreg 3.125 MG PO SCH (20:59)
[2019-05-11] MEDS ORDERED: NON-FORMULARY ITEM (Pramipexole Di-Hcl [Mirapex] 1 MG) PO SCH (22:00)
[2019-05-12] MEDS: Sodium Chloride 0.9% 1000 ML 1,000 ML IV SCH ×2 (02:23→15:41)
--- NOTE | 2019-05-12 09:18 | PCM.NOTE ---
Date and Time: 05/12/19915 Subjective Assessment: still somewhat lethargic - Review of Systems Constitutional: Lethargy, No Fever, No Chills Eyes: No Symptoms Ears, Nose, & Throat: No Symptoms Respiratory: No Cough, No Short Of Breath Cardiac: No Chest Pain, No Edema, No Syncope Abdominal/Gastrointestinal: No Abdominal Pain, No Nausea, No Vomiting, No Diarrhea Genitourinary Symptoms: No Dysuria Musculoskeletal: No Back Pain, No Neck Pain Skin: No Rash Neurological: No Dizziness, No Focal Weakness, No Sensory Changes Psychological: No Symptoms Endocrine: No Symptoms Hematologic/Lymphatic: No Symptoms Immunological/Allergic: No Symptoms Objective Exam General Appearance: no apparent distress, alert Neurologic Exam: alert, oriented x 3, cooperative, normal mood/affect, nml cerebellar function, sensation nml, No motor deficits Skin Exam: normal color, warm, dry Eye Exam: PERRL, EOMI, eyes nml inspection Ears, Nose, Throat Exam: normal ENT inspection, pharynx normal, moist mucous membranes Neck Exam: normal inspection, non-tender, supple, full range of motion Respiratory Exam: normal breath sounds, lungs clear, No respiratory distress Cardiovascular Exam: regular rate/rhythm, normal heart sounds Gastrointestinal/Abdomen Exam: soft, No tenderness, No mass Extremity Exam: normal inspection, normal range of motion Back Exam: normal inspection, normal range of motion, No CVA tenderness, No vertebral tenderness Pelvic Exam: deferred Rectal Exam: deferred OBJECTIVE DATA Vital Signs: Vital Signs - 24 hr Temp Pulse Resp BP Pulse Ox 05/12/19 07:43 98.5 F 79 18 130/58 95 05/12/19 04:00 97.7 F 77 20 119/58 95 05/11/19 23:54 97.5 F 81 17 104/51 92 L 05/11/19 19:35 97.6 F 80 18 141/67 92 L 05/11/19 16:17 97.9 F 80 20 140/76 96 05/11/19 13:00 97.7 F 79 22 149/67 97 05/11/19 11:01 97.7 F 79 22 149/67 97 Pain Assessment - Last Documented Pain Intensity 0 Pain Scale Used 0-10 Pain Scale Intake and Output: Intake & Output 05/09/19 05/10/19 05/11/19 05/12/19 11:59 11:59 11:59 11:59 Intake Total 2552 Output Total 800 Balance 1752 Weight 83.5 kg Lab Results: Lab Results-Last 24 Hours 05/11/19 05/11/19 05/11/19 Range/Units 11:55 13:48 17:50 PT 20.2 H (9.95-12.35) SECONDS INR 1.77 (0.8-3.0) Urine Color YELLOW (YELLOW) Urine Appearance CLEAR (CLEAR) Urine pH 7.0 (5-6) Ur Specific [place] 1.015 (1.005-1.025) Urine Protein 30 (Negative) Urine Ketones NEGATIVE (NEGATIVE) Urine Blood NEGATIVE (0-5) Shin/ul Urine Nitrite NEGATIVE (NEGATIVE) Urine Bilirubin NEGATIVE (NEGATIVE) Urine Urobilinogen NEGATIVE (0-1) mg/dL Ur Leukocyte Esterase NEGATIVE (NEGATIVE) Urine WBC (Auto) NONE (0-5) /HPF Urine RBC (Auto) NONE (0-2) /HPF U Epithel Cells (Auto) RARE (FEW) /HPF Urine Bacteria (Auto) NONE (NEGATIVE) /HPF Urine Mucus (Auto) SLIGHT (NEGATIVE) /HPF Urine Culture Reflexed NO (NO) Urine Glucose NEGATIVE (NEGATIVE) mg/dL Urine Opiates Level (NEGATIVE) Ur Methadone (NEGATIVE) Urine Barbiturates (NEGATIVE) Ur Phencyclidine (PCP) (NEGATIVE) Urine Amphetamine (NEGATIVE) U Benzodiazepine Level (NEGATIVE) Urine Cocaine (NEGATIVE) Urine Marijuana (THC) (NEGATIVE) Influenza Type A Ag NEGATIVE (NEGATIVE) Influenza Type B Ag NEGATIVE (NEGATIVE) RSV (PCR) NEGATIVE (Negative) 05/11/19 Range/Units Unknown PT (9.95-12.35) SECONDS INR (0.8-3.0) Urine Color (YELLOW) Urine Appearance (CLEAR) Urine pH (5-6) Ur Specific [place] (1.005-1.025) Urine Protein (Negative) Urine Ketones (NEGATIVE) Urine Blood (0-5) Shin/ul Urine Nitrite (NEGATIVE) Urine Bilirubin (NEGATIVE) Urine Urobilinogen (0-1) mg/dL Ur Leukocyte Esterase (NEGATIVE) Urine WBC (Auto) (0-5) /HPF Urine RBC (Auto) (0-2) /HPF U Epithel Cells (Auto) (FEW) /HPF Urine Bacteria (Auto) (NEGATIVE) /HPF Urine Mucus (Auto) (NEGATIVE) /HPF Urine Culture Reflexed (NO) Urine Glucose (NEGATIVE) mg/dL Urine Opiates Level NEGATIVE (NEGATIVE) Ur Methadone NEGATIVE (NEGATIVE) Urine Barbiturates NEGATIVE (NEGATIVE) Ur Phencyclidine (PCP) NEGATIVE (NEGATIVE) Urine Amphetamine NEGATIVE (NEGATIVE) U Benzodiazepine Level NEGATIVE (NEGATIVE) Urine Cocaine NEGATIVE (NEGATIVE) Urine Marijuana (THC) POSITIVE (NEGATIVE) Influenza Type A Ag (NEGATIVE) Influenza Type B Ag (NEGATIVE) RSV (PCR) (Negative) Radiology Exams: Radiology Procedures Category Date Time Status HEAD WITHOUT CONTRAST [CT] Stat Exams 05/11/19 11:46 Taken Multi-Disciplinary Progress Notes: Multi-Disciplinary Progress Notes 05/11/19 14:42 Case Management Note by Shyla Delatorre Pt states she could benifit from Pt/INR machine at home at d/c. She has an attendant at home, but does not alway have an attendant to take her to get blood work done. Pt marielos need to resume [employer] at d/c for attendant care. No further services anticipated. Will follow until d/c. Initialized on 05/11/19 14:42 - END OF NOTE Assessment/Plan (1) Headache Current Visit: Yes Status: Acute Qualifiers: Headache type: unspecified Code(s): R51 - HEADACHE (2) Lethargic Current Visit: Yes Status: Acute Code(s): R53.83 - OTHER FATIGUE
[2019-05-12] MEDS: BUMEX 1 MG PO SCH (09:53)
[2019-05-12] MEDS: ZYLOPRIM 300 MG PO SCH (09:53)
[2019-05-12] MEDS: ULTRAM 50 MG PO PRN ×2 (09:55→15:47)
[2019-05-12] MEDS: Mirapex 0.5 MG Tablet PO SCH ×2 (09:55→23:31)
[2019-05-12] MEDS: Neurontin 400 MG PO SCH ×3 (09:55→23:31)
[2019-05-12] MEDS: Klor Con 10 MEQ PO SCH (09:56)
[2019-05-12] MEDS: Imdur 30 MG PO SCH (09:56)
[2019-05-12] MEDS: Protonix 40MG Tablet PO SCH (09:56)
[2019-05-12] MEDS: Coreg 3.125 MG PO SCH ×2 (09:56→23:31)
[2019-05-12] MEDS: VITAMIN D PO SCH (09:57)
[2019-05-12] MEDS ORDERED: Zaroxolyn 2.5 MG PO SCH (10:00)
[2019-05-12] MEDS ORDERED: NON-FORMULARY ITEM (Cholecalciferol (Vitamin D3) [Vitamin D3] 1,000 UNIT) PO SCH (10:00)
[2019-05-12] MEDS: Coumadin 5 MG PO SCH (17:53)
[2019-05-12] MEDS: ZOCOR 20MG PO SCH (23:31)
[2019-05-13] MEDS: Sodium Chloride 0.9% 1000 ML 1,000 ML IV SCH (03:26)
[2019-05-13 06:38] LABS: Hematocrit 35.3 % (35-47); Hemoglobin 11.1 gm/dl (12.0-16.0); Mean Cell Volume 95.1 fl (78-100); Mean Corpuscular Hemoglobin 29.9 pg (26-32); Mean Corpuscular Hgb Concent. 31.4 g/dl (32-36); Platelet Count 128 K/mm3 (150-450); Red Blood Count 3.71 M/mm3 (4.1-5.4); Red Cell Distribution Width 15.5 % (11.5-14.0)
[2019-05-13 06:56] LABS: ALBUMIN 3.8 g/dL (3.5-5.0); BILIRUBIN,TOTAL 0.6 mg/dL (0.2-1.3); Creatinine 1 1.87 mg/dL (0.52-1.04); Potassium 3.7 mmol/L (3.5-5.1)
--- NOTE | 2019-05-13 09:09 | PCM.NOTE ---
Date and Time: 05/13/19907 Subjective Assessment: doing ok - Review of Systems Constitutional: No Fever, No Chills Eyes: No Symptoms Ears, Nose, & Throat: No Symptoms Respiratory: No Cough, No Short Of Breath Cardiac: No Chest Pain, No Edema, No Syncope Abdominal/Gastrointestinal: No Abdominal Pain, No Nausea, No Vomiting, No Diarrhea Genitourinary Symptoms: No Dysuria Musculoskeletal: No Back Pain, No Neck Pain Skin: No Rash Neurological: No Dizziness, No Focal Weakness, No Sensory Changes Psychological: No Symptoms Endocrine: No Symptoms Hematologic/Lymphatic: No Symptoms Immunological/Allergic: No Symptoms Objective Exam General Appearance: no apparent distress, alert Neurologic Exam: alert, oriented x 3, cooperative, normal mood/affect, nml cerebellar function, sensation nml, No motor deficits Skin Exam: normal color, warm, dry Eye Exam: PERRL, EOMI, eyes nml inspection Ears, Nose, Throat Exam: normal ENT inspection, pharynx normal, moist mucous membranes Neck Exam: normal inspection, non-tender, supple, full range of motion Respiratory Exam: normal breath sounds, lungs clear, No respiratory distress Cardiovascular Exam: regular rate/rhythm, normal heart sounds Gastrointestinal/Abdomen Exam: soft, No tenderness, No mass Extremity Exam: normal inspection, normal range of motion Back Exam: normal inspection, normal range of motion, No CVA tenderness, No vertebral tenderness Pelvic Exam: deferred Rectal Exam: deferred OBJECTIVE DATA Vital Signs: Vital Signs - 24 hr Temp Pulse Resp BP Pulse Ox 05/13/19 07:00 98.2 F 84 18 170/70 95 05/13/19 03:00 98.5 F 82 18 135/63 94 L 05/12/19 23:49 98.8 F 99 H 20 123/59 94 L 05/12/19 20:00 97.9 F 92 H 18 109/52 95 05/12/19 16:00 98.4 F 85 18 133/59 92 L 05/12/19 11:53 98.4 F 94 H 18 113/57 94 L Pain Assessment - Last Documented Pain Intensity 0 Pain Scale Used 0-10 Pain Scale Intake and Output: Intake & Output 05/10/19 05/11/19 05/12/19 05/13/19 11:59 11:59 11:59 10:59 Intake Total 3132 3947 Output Total 800 3400 Balance 2332 547 Weight 83.5 kg Lab Results: Lab Results-Last 24 Hours 05/13/19 05/13/19 Range/Units 06:07 06:07 WBC 11.0 H (4.0-10.5) K/mm3 RBC 3.71 L (4.1-5.4) M/mm3 Hgb 11.1 L (12.0-16.0) gm/dl Hct 35.3 (35-47) % MCV 95.1 (78-100) fl MCH 29.9 (26-32) pg MCHC 31.4 L (32-36) g/dl RDW 15.5 H (11.5-14.0) % Plt Count 128 L (150-450) K/mm3 MPV 11.0 H (6-9.5) fl Sodium 140 (137-145) mmol/L Potassium 3.7 (3.5-5.1) mmol/L Chloride 103 (98-107) mmol/L Carbon Dioxide 26 (22-30) mmol/L Anion Gap 14.0 (5-15) MEQ/L BUN 33 H (7-17) mg/dL Creatinine 1.87 H (0.52-1.04) mg/dL Estimated GFR 29.3 ML/MIN Glucose 121 H (74-106) mg/dL Calcium 9.0 (8.4-10.2) mg/dL Total Bilirubin 0.60 (0.2-1.3) mg/dL AST 16 (14-36) U/L ALT 10 (0-35) U/L Alkaline Phosphatase 101 (38-126) U/L Serum Total Protein 7.0 (6.3-8.2) g/dL Albumin 3.8 (3.5-5.0) g/dL Radiology Exams: Radiology Procedures Category Date Time Status CHEST 2 VIEWS (PA AND LAT) Routine Exams 05/13/19 07:30 Taken HEAD WITHOUT CONTRAST [CT] Stat Exams 05/11/19 11:46 Taken Assessment/Plan (1) Headache Current Visit: Yes Status: Acute Qualifiers: Headache type: unspecified Headache chronicity pattern: chronic headache Intractability: not intractable Qualified Code(s): R51 - Headache Assessment & Plan: improved Code(s): R51 - HEADACHE (2) Lethargic Current Visit: Yes Status: Acute Assessment & Plan: resolved Code(s): R53.83 - OTHER FATIGUE
[2019-05-13] MEDS: BUMEX 1 MG PO SCH (09:40)
[2019-05-13] MEDS: ZYLOPRIM 300 MG PO SCH (09:40)
[2019-05-13] MEDS: Protonix 40MG Tablet PO SCH (09:41)
[2019-05-13] MEDS: Neurontin 400 MG PO SCH (09:41)
[2019-05-13] MEDS: Imdur 30 MG PO SCH (09:42)
[2019-05-13] MEDS: Mirapex 0.5 MG Tablet PO SCH (09:42)
[2019-05-13] MEDS: Klor Con 10 MEQ PO SCH (09:43)
[2019-05-13] MEDS: VITAMIN D PO SCH (09:43)
[2019-05-13] MEDS: Coreg 3.125 MG PO SCH (09:43)
[2019-05-13 11:49] VITALS: BP 130/58; PULSE 79; O2SAT 93
--- NOTE | 2019-05-13 12:43 | PCM.DS ---
Discharge Summary Date of Admission: 05/11/19 10:40 Admitting Physician: MARIA EUGENIA GIRARD MD Primary Care Provider: CON MORALES Allergies Allergies amoxicillin Allergy (Verified 05/14/18 18:51) oxytetracycline [From Terramycin] Allergy (Verified 05/14/18 18:51) oxytetracycline HCl [From Terramycin] Allergy (Verified 05/14/18 18:51) Penicillins Allergy (Verified 05/14/18 18:51) Hospital Summary - Hospital Course Hospital Course: Last Vital Signs Temp 97.9 F 05/13/19 11:00 Pulse 79 05/13/19 11:00 Resp 18 05/13/19 11:00 BP 130/58 05/13/19 11:00 Pulse Ox 93 L 05/13/19 11:00 Allergies amoxicillin Allergy (Verified 05/14/18 18:51) oxytetracycline [From Terramycin] Allergy (Verified 05/14/18 18:51) oxytetracycline HCl [From Terramycin] Allergy (Verified 05/14/18 18:51) Penicillins Allergy (Verified 05/14/18 18:51) Active Medications Allopurinol (Zyloprim 300 Mg) 150 mg PO DAILY TRESSA Stop: 06/11/19 09:59 Last Admin: 05/13/19 09:40 Dose: 150 mg Bumetanide (Bumex 1 Mg) 2 mg PO DAILY TRESSA Stop: 06/11/19 09:59 Last Admin: 05/13/19 09:40 Dose: 2 mg Carvedilol (Coreg 3.125 Mg) 3.125 mg PO BID TRESSA Stop: 06/10/19 21:59 Last Admin: 05/13/19 09:43 Dose: 3.125 mg Cholecalciferol (Vitamin D) 1,000 unit PO DAILY TRESSA Stop: 06/11/19 09:59 Last Admin: 05/13/19 09:43 Dose: 1,000 unit Gabapentin (Neurontin 400 Mg) 400 mg PO TID TRESSA Stop: 06/10/19 16:29 Last Admin: 05/13/19 09:41 Dose: 400 mg Sodium Chloride (Sodium Chloride 0.9% 1000 Ml) 1,000 mls @ 75 mls/hr IV .[id number] TRESSA Stop: 06/10/19 12:29 Last Admin: 05/13/19 03:26 Dose: 75 mls/hr Isosorbide Mononitrate (Imdur 30 Mg) 30 mg PO DAILY TRESSA Stop: 06/11/19 09:59 Last Admin: 05/13/19 09:42 Dose: 30 mg Metolazone (Zaroxolyn 2.5 Mg) 2.5 mg PO QOD TRESSA Stop: 06/11/19 09:59 Last Admin: 05/12/19 09:56 Dose: 2.5 mg Miscellaneous Information (Medication Intervention) 1 each PO .RN TO CHECK ON TRESSA Stop: 06/10/19 16:59 Nitroglycerin (Nitrostat 0.4 Mg Tablet) 0.4 mg SL Q5MIN PRN MR X 3 PRN PRN Reason: angina Stop: 06/10/19 16:29 Ondansetron HCl (Zofran 4 Mg/2 Ml Vial) 4 mg IV Q6H PRN PRN PRN Reason: NAUSEA/VOMITING Stop: 06/10/19 12:26 Last Admin: 05/11/19 18:39 Dose: 4 mg Pantoprazole Sodium (Protonix 40mg Tablet) 40 mg PO QAM TRESSA Stop: 06/11/19 09:59 Last Admin: 05/13/19 09:41 Dose: 40 mg Potassium Chloride (Klor Con 10 Meq) 10 meq PO DAILY TRESSA Stop: 06/11/19 09:59 Last Admin: 05/13/19 09:43 Dose: 10 meq Pramipexole Dihydrochloride (Mirapex 0.5 Mg Tablet) 1 mg PO BID TRESSA Stop: 06/10/19 21:59 Last Admin: 05/13/19 09:42 Dose: 1 mg Simvastatin (Zocor 20mg) 40 mg PO HS [facility] Stop: 06/10/19 21:59 Last Admin: 05/12/19 23:31 Dose: 40 mg Tramadol HCl (Ultram 50 Mg) 50 mg PO Q6H PRN PRN PRN Reason: PAIN Stop: 06/10/19 12:26 Last Admin: 05/12/19 15:47 Dose: 50 mg Warfarin Sodium (Coumadin 5 Mg) 5 mg PO COU TRESSA Stop: 06/10/19 17:59 Last Admin: 05/12/19 17:53 Dose: 5 mg Intake & Output 05/13/19 05/14/19 11:59 11:59 Intake Total Output Total Balance Orders 05/13/19 07:30 CHEST 2 VIEWS (PA AND LAT) Routine Lab Tests 05/13/19 05/13/19 06:07 06:07 WBC 11.0 H RBC 3.71 L Hgb 11.1 L Hct 35.3 MCV 95.1 MCH 29.9 MCHC 31.4 L RDW 15.5 H Plt Count 128 L MPV 11.0 H Sodium 140 Potassium 3.7 Chloride 103 Carbon Dioxide 26 Anion Gap 14.0 BUN 33 H Creatinine 1.87 H Estimated GFR 29.3 Glucose 121 H Calcium 9.0 Total Bilirubin 0.60 AST 16 ALT 10 Alkaline Phosphatase 101 Serum Total Protein 7.0 Albumin 3.8 Chief Complaint Diagnosis weakness; headache; decreased mental status Allergies Allergy/AdvReac Type Severity Reaction Status Date / Time amoxicillin Allergy Verified 05/14/18 18:51 oxytetracycline Allergy Verified 05/14/18 18:51 [From Terramycin] oxytetracycline HCl Allergy Verified 05/14/18 18:51 [From Terramycin] Penicillins Allergy Verified 05/14/18 18:51 Vital Signs (Last 24 hours) Temp Pulse Resp BP Pulse Ox 05/13/19 11:00 97.9 F 79 18 130/58 93 L 05/13/19 07:00 98.2 F 84 18 170/70 95 05/13/19 03:00 98.5 F 82 18 135/63 94 L 05/12/19 23:49 98.8 F 99 H 20 123/59 94 L 05/12/19 20:00 97.9 F 92 H 18 109/52 95 05/12/19 16:00 98.4 F 85 18 133/59 92 L Home Medications Medication Instructions Recorded Confirmed Last Taken Type Allopurinol 100 mg [Zyloprim 150 mg PO DAILY 05/11/19 05/11/19 Unknown History 100 mg] Bumetanide 2 mg PO DAILY 05/11/19 05/11/19 Unknown History Calcitriol 0.25 mcg PO DAILY 05/11/19 05/11/19 Unknown History Carvedilol 3.125 mg [Coreg 3.125 mg PO BID 05/11/19 05/11/19 Unknown History 3.125 MG] Cholecalciferol (Vitamin D3) 1,000 unit PO DAILY 05/11/19 05/11/19 Unknown History [Vitamin D3] Gabapentin 400 mg PO TID 05/11/19 05/11/19 Unknown History Isosorbide Mononitrate [Isosorbide 30 mg PO DAILY 05/11/19 05/11/19 Unknown History Mononitrate ER] Nitroglycerin 0.4 mg Tablet 0.4 mg SL Q5MIN PRN MR X 3 PRN 05/11/19 05/11/19 Unknown History [Nitrostat 0.4 MG Tablet] PANTOPRAZOLE 40 mg Tablet 40 mg PO QAM 05/11/19 05/11/19 Unknown History [Protonix 40MG Tablet] Potassium Chloride 10 Meq Tab* 10 meq PO DAILY 05/11/19 05/11/19 Unknown History [Klor Con 10 MEQ] Pramipexole Di-HCl [Mirapex] 1 mg PO BID 05/11/19 05/11/19 05/10/19 History Rosuvastatin Calcium 20 mg PO HS 05/11/19 05/11/19 Unknown History Warfarin Sodium 5 mg [Coumadin 5 mg PO DAILY 05/11/19 05/11/19 Unknown History 5 MG] metOLazone [Metolazone] 2.5 mg PO UD 05/11/19 05/11/19 Unknown History Current Medications Generic Name Dose Route Start Last Admin Trade Name Romieq PRN Reason Stop Dose Admin Allopurinol 150 mg 05/12/19 10:00 05/13/19 09:40 Zyloprim 300 Mg PO 06/11/19 09:59 150 mg DAILY TRESSA Administration Bumetanide 2 mg 05/12/19 10:00 05/13/19 09:40 Bumex 1 Mg PO 06/11/19 09:59 2 mg DAILY TRESSA Administration Carvedilol 3.125 mg 05/11/19 22:00 05/13/19 09:43 Coreg 3.125 Mg PO 06/10/19 21:59 3.125 mg BID TRESSA Administration Cholecalciferol 1,000 unit 05/12/19 10:00 05/13/19 09:43 Vitamin D PO 06/11/19 09:59 1,000 unit DAILY TRESSA Administration Gabapentin 400 mg 05/11/19 16:30 05/13/19 09:41 Neurontin 400 Mg PO 06/10/19 16:29 400 mg TID TRESSA Administration Sodium Chloride 1,000 mls @ 75 mls/hr 05/11/19 12:30 05/13/19 03:26 Sodium Chloride 0.9% 1000 Ml IV 06/10/19 12:29 75 mls/hr .[id number] TRESSA Administration Isosorbide Mononitrate 30 mg 05/12/19 10:00 05/13/19 09:42 Imdur 30 Mg PO 06/11/19 09:59 30 mg DAILY TRESSA Administration Metolazone 2.5 mg 05/12/19 10:00 05/12/19 09:56 Zaroxolyn 2.5 Mg PO 06/11/19 09:59 2.5 mg QOD TRESSA Administration Miscellaneous Information 1 each 05/11/19 17:00 Medication Intervention PO 06/10/19 16:59 .RN TO CHECK ON TRESSA Nitroglycerin 0.4 mg 05/11/19 16:30 Nitrostat 0.4 Mg Tablet SL 06/10/19 16:29 Q5MIN PRN MR X 3 PRN angina Ondansetron HCl 4 mg 05/11/19 12:27 05/11/19 18:39 Zofran 4 Mg/2 Ml Vial IV 06/10/19 12:26 4 mg Q6H PRN PRN Administration NAUSEA/VOMITING Pantoprazole Sodium 40 mg 05/12/19 10:00 05/13/19 09:41 Protonix 40mg Tablet PO 06/11/19 09:59 40 mg QAM TRESSA Administration Potassium Chloride 10 meq 05/12/19 10:00 05/13/19 09:43 Klor Con 10 Meq PO 06/11/19 09:59 10 meq DAILY TRESSA Administration Pramipexole Dihydrochloride 1 mg 05/11/19 22:00 05/13/19 09:42 Mirapex 0.5 Mg Tablet PO 06/10/19 21:59 1 mg BID TRESSA Administration Simvastatin 40 mg 05/11/19 22:00 05/12/19 23:31 Zocor 20mg PO 06/10/19 21:59 40 mg HS TRESSA Administration Tramadol HCl 50 mg 05/11/19 12:27 05/12/19 15:47 Ultram 50 Mg PO 06/10/19 12:26 50 mg Q6H PRN PRN Administration PAIN Warfarin Sodium 5 mg 05/11/19 18:00 05/12/19 17:53 Coumadin 5 Mg PO 06/10/19 17:59 5 mg COU TRESSA Administration Discontinued Medications Generic Name Dose Route Start Last Admin Trade Name Freq PRN Reason Stop Dose Admin Pramipexole Dihydrochloride Confirm 05/11/19 18:37 Mirapex 0.5 Mg Tablet Administered 05/11/19 18:38 Dose 1 mg .ROUTE .STK-MED ONE Intake & Output (Last 24 hours) 05/11/19 05/12/19 05/13/19 05/14/19 12:59 12:59 11:59 11:59 Intake Total Output Total Balance Weight Laboratory Results (Last 24 hours) 05/13/19 05/13/19 06:07 06:07 WBC 11.0 H RBC 3.71 L Hgb 11.1 L Hct 35.3 MCV 95.1 MCH 29.9 MCHC 31.4 L RDW 15.5 H Plt Count 128 L MPV 11.0 H Sodium 140 Potassium 3.7 Chloride 103 Carbon Dioxide 26 Anion Gap 14.0 BUN 33 H Creatinine 1.87 H Estimated GFR 29.3 Glucose 121 H Calcium 9.0 Total Bilirubin 0.60 AST 16 ALT 10 Alkaline Phosphatase 101 Serum Total Protein 7.0 Albumin 3.8 Orders (Last 24 hours) Category Date Time Status CHEST 2 VIEWS (PA AND LAT) Routine Exams 05/13/19 07:30 Taken CBC AM.LAB Lab 05/13/19 06:07 Completed CMP AM.LAB Lab 05/13/19 06:07 Completed - Vitals & Intake/Output Vital Signs: Vital Signs Temperature 97.9 F 05/13/19 11:00 Pulse Rate 79 05/13/19 11:00 Respiratory Rate 18 05/13/19 11:00 Blood Pressure 130/58 05/13/19 11:00 O2 Sat by Pulse Oximetry 93 L 05/13/19 11:00 Oxygen-Last Documented O2 Percentage 2 Liters = 28% Intake & Output: Intake & Output 05/11/19 05/12/19 05/13/19 05/14/19 12:59 12:59 11:59 11:59 Intake Total Output Total Balance Weight - Lab Result Diagrams: 05/13/19 06:07 05/13/19 06:07 Lab Results-Last 24 Hrs: Lab Results-Last 24 Hours 05/13/19 05/13/19 Range/Units 06:07 06:07 WBC 11.0 H (4.0-10.5) K/mm3 RBC 3.71 L (4.1-5.4) M/mm3 Hgb 11.1 L (12.0-16.0) gm/dl Hct 35.3 (35-47) % MCV 95.1 (78-100) fl MCH 29.9 (26-32) pg MCHC 31.4 L (32-36) g/dl RDW 15.5 H (11.5-14.0) % Plt Count 128 L (150-450) K/mm3 MPV 11.0 H (6-9.5) fl Sodium 140 (137-145) mmol/L Potassium 3.7 (3.5-5.1) mmol/L Chloride 103 (98-107) mmol/L Carbon Dioxide 26 (22-30) mmol/L Anion Gap 14.0 (5-15) MEQ/L BUN 33 H (7-17) mg/dL Creatinine 1.87 H (0.52-1.04) mg/dL Estimated GFR 29.3 ML/MIN Glucose 121 H (74-106) mg/dL Calcium 9.0 (8.4-10.2) mg/dL Total Bilirubin 0.60 (0.2-1.3) mg/dL AST 16 (14-36) U/L ALT 10 (0-35) U/L Alkaline Phosphatase 101 (38-126) U/L Serum Total Protein 7.0 (6.3-8.2) g/dL Albumin 3.8 (3.5-5.0) g/dL - Radiology Exams Ordered Rad Exams-Entire Visit: Radiology Procedures Category Date Time Status CHEST 2 VIEWS (PA AND LAT) Routine Exams 05/13/19 07:30 Taken - Procedures and Test Procedures and Tests throughout Hospitalization: Therapy Orders & Screens 05/11/19 14:14 Smoking Cessation Education ONCE Comment: Diagnosis: weakness; headache; decreased mental status Smoking Status: Light tobacco smoker How long have you smoked: yrs Have you smoked in the past 12 months: Yes Approximately how many cigarettes per day: pt unsure Do you dip or chew tobacco: No If,Former Smoker,when did you quit: 1.5 years Discharge Exam General Appearance: no apparent distress, alert Neurologic Exam: alert, oriented x 3, cooperative, normal mood/affect, nml cerebellar function, sensation nml, No motor deficits Eye Exam: PERRL, EOMI, eyes nml inspection Ears, Nose, Throat Exam: normal ENT inspection, pharynx normal, moist mucous membranes Neck Exam: normal inspection, non-tender, supple, full range of motion Respiratory Exam: normal breath sounds, lungs clear, No respiratory distress Cardiovascular Exam: regular rate/rhythm, normal heart sounds Gastrointestinal/Abdomen Exam: soft, No tenderness, No mass Pelvic Exam: deferred Rectal Exam: deferred Back Exam: normal inspection, normal range of motion, No CVA tenderness, No vertebral tenderness Extremity Exam: normal inspection, normal range of motion Skin Exam: normal color, warm, dry Final Diagnosis/Problem List - Final Discharge Diagnosis/Problem (1) Headache Current Visit: Yes Status: Resolved Code(s): R51 - HEADACHE (2) Lethargic Current Visit: Yes Status: Resolved Code(s): R53.83 - OTHER FATIGUE - Discharge Discharge Date: 05/13/19 Disposition: Home, Self-Care Condition: Stable Prescriptions: Continue Bumetanide 2 mg PO DAILY Allopurinol 100 mg [Zyloprim 100 mg] 150 mg PO DAILY Calcitriol 0.25 mcg PO DAILY Warfarin Sodium 5 mg [Coumadin 5 MG] 5 mg PO DAILY Cholecalciferol (Vitamin D3) [Vitamin D3] 1,000 unit PO DAILY Isosorbide Mononitrate [Isosorbide Mononitrate ER] 30 mg PO DAILY Rosuvastatin Calcium 20 mg PO HS Pramipexole Di-HCl [Mirapex] 1 mg PO BID Potassium Chloride 10 Meq Tab* [Klor Con 10 MEQ] 10 meq PO DAILY PANTOPRAZOLE 40 mg Tablet [Protonix 40MG Tablet] 40 mg PO QAM metOLazone [Metolazone] 2.5 mg PO UD Gabapentin 400 mg PO TID Carvedilol 3.125 mg [Coreg 3.125 MG] 3.125 mg PO BID Nitroglycerin 0.4 mg Tablet [Nitrostat 0.4 MG Tablet] 0.4 mg SL Q5MIN PRN MR X 3 PRN PRN Reason: angina Follow up with: CON MORALES [Primary Care Provider] - 1 Week
--- NOTE | 2019-05-13 15:02 | XRAY ---
Indication: Cough. Comparison: March 31, 2018. PA/lateral chest demonstrates new patchy left upper lobe infiltrate. Stable bilateral mid to lower lung subsegmental atelectasis/scarring and a few incidental calcified granulomas. Heart is not enlarged. Bony thorax intact again with mild osteopenia and degenerative changes. Impression: New left upper lobe infiltrate. Stable atelectasis/scarring and evidence for old granulomatous disease. Comment: Preliminary interpretation was made by [facility]. No discrepancy.
--- NOTE | 2019-05-14 08:03 | XRAY ---
Indication: Severe headache. History TIA. Multiple contiguous axial images obtained through the head without contrast. Comparison: None Age-appropriate global atrophy, moderate periventricular degenerative micro-ischemia bilaterally, and high right parietal old infarct with underlying gliosis. No acute intracranial hemorrhage, hydrocephalus, or mass effect. Fourth ventricle is midline. Bony calvarium is intact. There is chronic appearing mild mucoperiosteal thickening of both ethmoid and right sphenoid sinuses. Previous bilateral maxillary sinus antrectomy surgery. Mastoid air cells are clear. Impression: 1. Normal aging brain including atrophy and degenerative micro-ischemia. Old right parietal infarct. 2. No acute intracranial abnormalities. 3. Incidental chronic paranasal sinus disease. CTDI is 62.81
== END 2019-05-13 13:13 | disposition home or self-care (01) ==
LOC: MED SURG 10:40
PROVIDERS: ADMIT Family Medicine; ATTEND Internal Medicine
DX: R51 Headache (principal); R53.83 Other fatigue; I10 Essential (primary) hypertension; E11.9 Type 2 diabetes mellitus without complications; R42 Dizziness and giddiness; R41.82 Altered mental status, unspecified; Z86.73 Personal history of transient ischemic attack (TIA), and cerebral infarction without residual deficits; Z79.01 Long term (current) use of anticoagulants; Z79.899 Other long term (current) drug therapy
CPT/HCPCS: 36415; 70450; 71046; 80053; 80307; 81001; 85027; 85610; 87631; G0378; J2405; A9270-GY

== ENCOUNTER 2019-07-12 06:20 | Observation (INO) | payer MEDICARE ==
--- NOTE | 2019-07-12 07:33 | ERPHSYRPT ---
- History of Present Illness Source: patient, EMS Exam Limitations: no limitations Patient Subjective Stated Complaint: pt states she has hx of sleep walking, pt states that she fell yesterday during sleep walking, pt states that her left hip hurts and left shoulder hurts, pt states that she thinks she hit her chin during the fall, pt states that she is on warfin Triage Nursing Assessment: pt came into the er, pt is axo x, pt states 8/10 pain to left hip and left shoulder, pt has bruising to the middle of the side left of her back, no deformities or shortening present to left leg, pt is hypertensive, pt has 3+ pitting edema to lower extremities Occurred: just prior to arrival Reason for Fall: fainted (sleep walking) Injuries/Pain Location: back Loss of Consciousness: no loss of consciousness Quality: sharpness Severity of Pain-Max: moderate Severity of Pain-Current: moderate Modifying Factors: Improves With: movement Associated Symptoms (Fall): back pain Hx Tetanus, Diphtheria Vaccination/Date Given: No Hx Influenza Vaccination/Date Given: No Hx Pneumococcal Vaccination/Date Given: Yes <ADRYAN SY - Last Filed: 07/12/19 09:56> <JUAN GREEN - Last Filed: 07/12/19 13:09> - History of Present Illness Time Seen by Provider: 07/12/19 07:25 Allergies/Adverse Reactions: amoxicillin Allergy (Verified 07/12/19 06:37) oxytetracycline [From Terramycin] Allergy (Verified 07/12/19 06:37) oxytetracycline HCl [From Terramycin] Allergy (Verified 07/12/19 06:37) Penicillins Allergy (Verified 07/12/19 06:37) Home Medications: Allopurinol 100 mg [Zyloprim 100 mg] 100 mg PO DAILY 05/11/19 [History] Bumetanide 2 mg PO DAILY 05/11/19 [History] Calcitriol 0.25 mcg PO DAILY 05/11/19 [History] Carvedilol 3.125 mg [Coreg 3.125 MG] 3.125 mg PO BID 05/11/19 [History] Cholecalciferol (Vitamin D3) [Vitamin D3] 1,000 unit PO DAILY 05/11/19 [History] Gabapentin 400 mg PO TID 05/11/19 [History] Isosorbide Mononitrate [Isosorbide Mononitrate ER] 30 mg PO DAILY 05/11/19 [ History] Nitroglycerin 0.4 mg Tablet [Nitrostat 0.4 MG Tablet] 0.4 mg SL Q5MIN PRN MR X 3 PRN 05/11/19 [History] PANTOPRAZOLE 40 mg Tablet [Protonix 40MG Tablet] 40 mg PO QAM 05/11/19 [ History] Potassium Chloride 10 Meq Tab* [Klor Con 10 MEQ] 10 meq PO DAILY 05/11/19 [ History] Pramipexole Di-HCl [Mirapex] 1 mg PO BID 05/11/19 [History] Rosuvastatin Calcium 20 mg PO HS 05/11/19 [History] Warfarin Sodium 5 mg [Coumadin 5 MG] 5 mg PO DAILY 05/11/19 [History] metOLazone [Metolazone] 2.5 mg PO UD 05/11/19 [History] Cyclobenzaprine HCl 10 mg [Cyclobenzaprine 10 MG] 10 mg PO TID 07/12/19 [ History] buPROPion HCl [Bupropion HCl Sr] 200 mg PO BID 07/12/19 [History] - Review of Systems Constitutional: No Symptoms Eyes: No Symptoms Ears, Nose, & Throat: No Symptoms Respiratory: Cough Cardiac: No Symptoms Abdominal/Gastrointestinal: No Symptoms Genitourinary Symptoms: No Symptoms Musculoskeletal: No Symptoms Skin: No Symptoms Neurological: No Symptoms Psychological: No Symptoms Endocrine: No Symptoms Hematologic/Lymphatic: No Symptoms Immunological/Allergic: No Symptoms <ADRYAN SY - Last Filed: 07/12/19 09:56> - Past Medical History Pertinent Past Medical History: Yes Neurological History: TIA ENT History: No Pertinent History Cardiac History: Coronary Artery Disease, Hypertension, Myocardial Infarction ( [place]) Respiratory History: CHF, Sleep Apnea Endocrine Medical History: Other Musculoskeletal History: Arthritis GI Medical History: No Pertinent History History: No Pertinent History Psycho-Social History: Anxiety, Depression Female Reproductive Disorders: No Pertinent History Other Medical History: LUPUS ANTICOAGULANT DISORDER, MORBID OBESITY, GOUT, ANXIETY, DEPRESSION, VENTRICULAR ARRHYTHMIA, CKD STAGE 4, OSTEOPOROSIS, HYPERGLYCEMIA, FRACTURE PATELLA 2015 - Past Surgical History Past Surgical History: Yes Cardiac: Cardiac Catheterization, Cardiac Stent Respiratory: No Pertinent History Gastrointestinal: No Pertinent History Genitourinary: No Pertinent History Musculoskeletal: Orthopedic Surgery Female Surgical History: Hysterectomy, Dilation & Curettage Other Surgical History: CARPAL TUNNEL-RIGHT WRIST, RIGHT FOOT - Social History Smoking Status: Light tobacco smoker How long have you smoked: 0.25 Exposure to second hand smoke: Yes Drug Use: marijuana Patient Lives Alone: Yes - Female History Hx Now: No <ADRYAN SY - Last Filed: 07/12/19 09:56> - [place] Coma Score Best Eye Response (Jethro): (4) open spontaneously Best Verbal Response ([place]): (5) oriented Best Motor Response (Jethro): (6) obeys commands [place] Total: 15 - Physical Exam General Appearance: mild distress Head Injury: no evidence of injury Eye Exam: PERRL/EOMI ENT Exam: airway nml Neck Exam: supple Respiratory/Chest Exam: rhonchi Cardiovascular Exam: normal heart sounds Gastrointestinal Exam: soft Genitalia Exam: other (defer) Rectal Exam: deferred Back Exam: vertebral tenderness, decreased range of motion Extremity Exam: normal inspection, other (lower ext edema) Neurologic Exam: alert, oriented x 3, cooperative Skin Exam: normal color SpO2 Interpretation: normal SpO2: 98 O2 Delivery: Room Air <ADRYAN SY - Last Filed: 07/12/19 09:56> - Nursing Vital Signs Nursing Vital Signs: Initial Vital Signs Temperature 97.4 F 07/12/19 06:21 Pulse Rate 86 07/12/19 06:21 Respiratory Rate 16 07/12/19 06:21 Blood Pressure 165/79 07/12/19 06:21 O2 Sat by Pulse Oximetry 98 07/12/19 06:21 Pain Scale Pain Intensity 4 - Radiology Exams Chest X-ray Interpretation: Other (new right infrahilar infiltrate. Stable atelectasis/scarring and evidence for old granulomatous disease.) Right Hip X-ray Interpretation: Other (per radiologist interpretation: Right hip demonstrates mild osteopenia, lower lumbar degenerative spondylosis, and scattered vascular calcifications. No other bony, articular or soft tissue abnormalities.) - CT Exams Head CT Interpretation: Other (stable nonacute senile brain with old right parietal infarct with no acute intracranial hemorrhage, hydrocephalus or mass effect. Fourth ventricle is midline. Bony calvarium intact. Visualized paranasal sinuses and mastoid air cells are clear.) Cervical Spine CT Interpretation: Other (negative to fracture/subluxation. Incidental multilevel bilateral degenerative facet hypertrophy and benign right thyroid chunky calcification.) Lumbar Spine CT Interpretation: Other (nnew left L1 and L2 transverse process fractures. Incidental arteriosclerotic calcification and bilateral renal cysts.) <VARLAS,PANTELHS JINA - Last Filed: 07/12/19 13:09> Ordered Tests: Active Orders 24 hr Category Date Time Status EKG-ER Only STAT Care 07/12/19 09:10 Active CERVICAL SPINE WO CONTRAST [CT] Stat Exams 07/12/19 07:33 Completed CHEST 1 VIEW (PORTABLE) Stat Exams 07/12/19 07:33 Completed HEAD WITHOUT CONTRAST [CT] Stat Exams 07/12/19 11:15 Completed HIP UNI (2V) INCL PEL IF DONE Stat Exams 07/12/19 08:24 Completed LUMBAR SPINE W/O [CT] Stat Exams 07/12/19 07:33 Completed BLOOD CULTURE Stat Lab 07/12/19 09:15 Received BNP [NT PRO BNP] Stat Lab 07/12/19 09:09 Completed CBC W DIFF Stat Lab 07/12/19 09:15 Completed CMP Stat Lab 07/12/19 09:15 Completed Lactic Acid Stat Lab 07/12/19 09:20 Completed PROTIME WITH INR Stat Lab 07/12/19 09:15 Completed Transfer Order Routine Transfer 07/12/19 Ordered Medication Summary Generic Name Dose Route Start Last Admin Trade Name Freq PRN Reason Stop Dose Admin Cefepime HCl 1 g/ Sodium 100 mls @ 200 mls/hr 07/12/19 12:45 Chloride IV 07/12/19 13:14 STAT STA Lab/Rad Data: Laboratory Result Diagrams 07/12/19 09:15 07/12/19 09:15 Laboratory Results 07/12/19 07/12/19 07/12/19 Range/Units 09:40 09:20 09:15 WBC (4.0-10.5) K/mm3 RBC (4.1-5.4) M/mm3 Hgb (12.0-16.0) gm/dl Hct (35-47) % MCV (78-100) fl MCH (26-32) pg MCHC (32-36) g/dl RDW (11.5-14.0) % Plt Count (150-450) K/mm3 MPV (6-9.5) fl Gran % (36.0-66.0) % Eos # (Auto) (0-0.5) Absolute Lymphs (auto) (1.0-4.6) Absolute Monos (auto) (0.0-1.3) Lymphocytes % (24.0-44.0) % Monocytes % (0.0-12.0) % Eosinophils % (0.00-5.0) % Basophils % (0.0-0.4) % Absolute Granulocytes (1.4-6.9) Basophils # (0-0.4) PT 23.5 H (9.95-12.35) SECONDS INR 2.05 (0.8-3.0) Sodium (137-145) mmol/L Potassium (3.5-5.1) mmol/L Chloride (98-107) mmol/L Carbon Dioxide (22-30) mmol/L Anion Gap (5-15) MEQ/L BUN (7-17) mg/dL Creatinine (0.52-1.04) mg/dL Estimated GFR ML/MIN Glucose (74-106) mg/dL Lactic Acid 1.0 (0.4-2.0) Calcium (8.4-10.2) mg/dL Total Bilirubin (0.2-1.3) mg/dL AST (14-36) U/L ALT (0-35) U/L Alkaline Phosphatase (38-126) U/L NT-Pro-B Natriuret Pep (0-900) pg/mL Serum Total Protein (6.3-8.2) g/dL Albumin (3.5-5.0) g/dL Influenza Type A Ag NEGATIVE (NEGATIVE) Influenza Type B Ag NEGATIVE (NEGATIVE) RSV (PCR) NEGATIVE (Negative) 07/12/19 07/12/19 07/12/19 Range/Units 09:15 09:15 09:09 WBC 11.8 H (4.0-10.5) K/mm3 RBC 3.78 L (4.1-5.4) M/mm3 Hgb 11.3 L (12.0-16.0) gm/dl Hct 36.0 (35-47) % MCV 95.2 (78-100) fl MCH 29.9 (26-32) pg MCHC 31.4 L (32-36) g/dl RDW 15.9 H (11.5-14.0) % Plt Count 224 (150-450) K/mm3 MPV 11.1 H (6-9.5) fl Gran % 76.3 H (36.0-66.0) % Eos # (Auto) 0.32 (0-0.5) Absolute Lymphs (auto) 1.87 (1.0-4.6) Absolute Monos (auto) 0.59 (0.0-1.3) Lymphocytes % 15.8 L (24.0-44.0) % Monocytes % 5.0 (0.0-12.0) % Eosinophils % 2.7 (0.00-5.0) % Basophils % 0.2 (0.0-0.4) % Absolute Granulocytes 9.02 H (1.4-6.9) Basophils # 0.02 (0-0.4) PT (9.95-12.35) SECONDS INR (0.8-3.0) Sodium 140 (137-145) mmol/L Potassium 3.5 (3.5-5.1) mmol/L Chloride 102 (98-107) mmol/L Carbon Dioxide 30 (22-30) mmol/L Anion Gap 12.0 (5-15) MEQ/L BUN 44 H (7-17) mg/dL Creatinine 1.67 H (0.52-1.04) mg/dL Estimated GFR 33.4 ML/MIN Glucose 127 H (74-106) mg/dL Lactic Acid (0.4-2.0) Calcium 9.9 (8.4-10.2) mg/dL Total Bilirubin 0.70 (0.2-1.3) mg/dL AST 20 (14-36) U/L ALT 12 (0-35) U/L Alkaline Phosphatase 116 (38-126) U/L NT-Pro-B Natriuret Pep 894 (0-900) pg/mL Serum Total Protein 7.4 (6.3-8.2) g/dL Albumin 3.9 (3.5-5.0) g/dL Influenza Type A Ag (NEGATIVE) Influenza Type B Ag (NEGATIVE) RSV (PCR) (Negative) <ADRYAN SY - Last Filed: 07/12/19 09:56> - Progress Discussed with Dr.: Migue (@12:40, discuss the patient with Dr Sage, Hospitalist. Dr Sage accepted the patient for observation to [facility] telemetry) <JUAN GREEN - Last Filed: 07/12/19 13:09> - Progress Progress Note: turn over to Dr. Green 07/12/19 10:05 (ADRYAN SY) 07/12/19 11:[address] Potter, emergency department attending at [facility]. Dr Potter did not accept the patient for transfer for the transverse process fractures as the patient will not have any other intervention besides pain control (JUAN GREEN) <ADRYAN SY - Last Filed: 07/12/19 09:56> - Departure Departure Disposition: Observation (to [facility] Telemetry to Dr Sage) Critical Care Time: No <JUAN GREEN - Last Filed: 07/12/19 13:09> - Departure Clinical Impression: Multiple transverse process fractures, Essential hypertension Right middle lobe pneumonia Qualifiers: Pneumonia type: due to unspecified organism Qualified Code(s): J18.9 - Pneumonia, unspecified organism Chronic kidney disease (CKD) Qualifiers: Chronic kidney disease stage: stage 3 (moderate) Qualified Code(s): N18.3 - Chronic kidney disease, stage 3 (moderate) Condition: Fair Referrals: MARIA EUGENIA GIRARD MD [Primary Care Provider] -
--- NOTE | 2019-07-12 08:45 | XRAY ---
Indication: Pain following fall. Multiple contiguous axial images obtained through the cervical spine. Sagittal and coronal reformatted images obtained. Comparison: None. There is cervical radiograph July 21, 2018. Axial images negative for acute fracture, suspicious bony lesions, or spinal canal stenosis. Mild multilevel bilateral degenerative facet hypertrophy. Sagittal and coronal reformatted images demonstrates normal alignment. Vertebral body heights/disc spaces maintained. No acute compression fracture, subluxation, or jumped facet. Normal-appearing craniocervical junction. Visualized noncontrasted soft tissues demonstrates mild carotid calcifications bilaterally. Small right thyroid benign chunky calcification. Base of the brain and lung apices are unremarkable. Impression: 1. Again negative acute fracture/subluxation. 2. Incidental multilevel bilateral degenerative facet hypertrophy and benign right thyroid chunky calcification.
--- NOTE | 2019-07-12 08:48 | XRAY ---
Indication: Pain following fall. Multiple contiguous axial images obtained through the lumbar spine. Sagittal and coronal reformatted images obtained. Comparison: None. There is lumbar radiograph November 29, 2018. Axial images demonstrates nondisplaced left L1 and minimally displaced left L2 transverse process fractures. Mild L4-S1 bilateral degenerative facet hypertrophy. Sagittal and coronal reformatted images demonstrates normal alignment. Vertebral body heights/disc spaces maintained. No acute compression fracture or subluxation. Visualized noncontrasted soft tissues demonstrates moderate scattered aortoiliac calcifications. Incompletely visualized bilateral renal cysts. Impression: 1. New left L1 and L2 transverse process fractures. 2. Incidental scattered arteriosclerotic calcifications and bilateral renal cysts.
--- NOTE | 2019-07-12 08:50 | XRAY ---
Indication: Pain following fall. Comparison: None AP pelvis and 2 views of the right hip demonstrates mild osteopenia, lower lumbar degenerative spondylosis, and scattered vascular calcifications. No other bony, articular, or soft tissue abnormalities.
--- NOTE | 2019-07-12 08:50 | XRAY ---
Indication: Pain following fall. Comparison: May 13, 2019. Portable chest demonstrates new patchy right infrahilar infiltrate. Stable bilateral mid to lower lung subsegmental atelectasis/scarring and a few tiny calcified granulomas. Heart is not enlarged. Bony thorax intact again with mild osteopenia and degenerative changes. Impression: New right infrahilar infiltrate. Stable atelectasis/scarring and evidence for old granulomatous disease.
[2019-07-12 09:44] LABS: Absolute Neutrophil Ct (ANC) 9.02 (1.4-6.9); BASOPHIL % 0.2 % (0.0-0.4); Basophil (Absolute #) 0.02 (0-0.4); Eosinophil % 2.7 % (0.00-5.0); Eosinophil (Absolute #) 0.32 (0-0.5); Hemoglobin 11.3 gm/dl (12.0-16.0); Lymphocyte (Absolute #) 1.87 (1.0-4.6); Lymphocytes % 15.8 % (24.0-44.0); Mean Cell Volume 95.2 fl (78-100); Mean Corpuscular Hemoglobin 29.9 pg (26-32); Mean Corpuscular Hgb Concent. 31.4 g/dl (32-36); Mean Platelet Volume 11.1 fl (6-9.5); Monocyte (Absolute #) 0.59 (0.0-1.3); Neutrophil % 76.3 % (36.0-66.0); Platelet Count 224 K/mm3 (150-450); Red Blood Count 3.78 M/mm3 (4.1-5.4); Red Cell Distribution Width 15.9 % (11.5-14.0); White Blood Count 11.8 K/mm3 (4.0-10.5)
[2019-07-12 09:47] LABS: INR 2.05 (0.8-3.0); PROTIME 23.5 SECONDS (9.95-12.35)
[2019-07-12 09:53] LABS: ALBUMIN 3.9 g/dL (3.5-5.0); BILIRUBIN,TOTAL 0.7 mg/dL (0.2-1.3); Calcium 9.9 mg/dL (8.4-10.2); Creatinine 1 1.67 mg/dL (0.52-1.04); Potassium 3.5 mmol/L (3.5-5.1); Total Protein 7.4 g/dL (6.3-8.2)
[2019-07-12 10:31] LABS: INFLUENZA A NEGATIVE (NEGATIVE); INFLUENZA B NEGATIVE (NEGATIVE); RESPIRATORY SYNCTIAL VIRUS NEGATIVE (Negative)
--- NOTE | 2019-07-12 12:26 | XRAY ---
Indication: Pain following fall. Multiple contiguous axial images obtained through the head without contrast. Comparison: May 11, 2019. Stable global atrophy, moderate periventricular degenerative micro-ischemia bilaterally, and high right parietal lobe infarct. Again no acute intracranial hemorrhage, hydrocephalus, or mass effect. Fourth ventricle is midline. Bony calvarium intact. Visualized paranasal sinuses and mastoid air cells are clear. Impression: Stable nonacute senile brain with old right parietal infarct.
[2019-07-12] MEDS ORDERED: MAXIPIME 1 GM** 1 G in Sodium Chloride 0.9% 100 ML IVPB 100 ML IV STA (12:45)
[2019-07-12] MEDS ORDERED: Zofran 4 MG/2 ML VIAL IV PRN (14:07)
[2019-07-12] MEDS: TYLENOL 325 MG PO PRN (14:38)
[2019-07-12] MEDS: Sodium Chloride 0.9% 1000 ML 1,000 ML IV SCH (14:39)
[2019-07-12] MEDS ORDERED: Nitrostat 0.4 MG Tablet SL PRN (16:18)
[2019-07-12] MEDS: MORPHINE SULFATE 4 MG INJ IV PRN ×2 (16:30→22:57)
[2019-07-12] MEDS ORDERED: MEDICATION INTERVENTION MC SCH (16:45)
[2019-07-12] MEDS ORDERED: ZOCOR 20MG PO SCH (22:00)
[2019-07-12] MEDS ORDERED: NON-FORMULARY ITEM (Pramipexole Di-Hcl [Mirapex] 1 MG) PO SCH (22:00)
[2019-07-12] MEDS: Coreg 3.125 MG PO SCH (22:57)
[2019-07-12] MEDS: Neurontin 400 MG PO SCH (22:58)
[2019-07-12] MEDS: Cyclobenzaprine 10 MG PO SCH (22:58)
[2019-07-12] MEDS: Mirapex 0.5 MG Tablet PO SCH (22:58)
[2019-07-12] MEDS: Pepcid 20 MG PO SCH (22:58)
[2019-07-13] MEDS: TYLENOL 325 MG PO PRN (01:03)
[2019-07-13] MEDS: Sodium Chloride 0.9% 1000 ML 1,000 ML IV SCH (01:13)
[2019-07-13] MEDS: MORPHINE SULFATE 4 MG INJ IV PRN ×2 (03:36→07:50)
[2019-07-13 05:37] LABS: BASOPHIL % 0.2 % (0.0-0.4); Basophil (Absolute #) 0.02 (0-0.4); Eosinophil % 3.3 % (0.00-5.0); Eosinophil (Absolute #) 0.31 (0-0.5); Lymphocyte (Absolute #) 2.04 (1.0-4.6); Lymphocytes % 21.4 % (24.0-44.0); Mean Cell Volume 95.7 fl (78-100); Mean Corpuscular Hemoglobin 29.3 pg (26-32); Mean Corpuscular Hgb Concent. 30.6 g/dl (32-36); Mean Platelet Volume 11.6 fl (6-9.5); Monocyte (Absolute #) 0.55 (0.0-1.3); Monocytes % 5.8 % (0.0-12.0); Neutrophil % 69.3 % (36.0-66.0); Platelet Count 190 K/mm3 (150-450); Red Blood Count 3.76 M/mm3 (4.1-5.4); White Blood Count 9.5 K/mm3 (4.0-10.5)
[2019-07-13 05:47] LABS: INR 1.69 (0.8-3.0); PROTIME 19.3 SECONDS (9.95-12.35)
[2019-07-13 05:56] LABS: ANION GAP 10.1 MEQ/L (5-15); Calcium 9.2 mg/dL (8.4-10.2); Creatinine 1 1.51 mg/dL (0.52-1.04); Potassium 3.8 mmol/L (3.5-5.1)
[2019-07-13 08:09] VITALS: BP 157/70; PULSE 76; O2SAT 98
--- NOTE | 2019-07-13 08:51 | XRAY ---
Indication: Follow-up pneumonia. Comparison: One day earlier. Portable chest demonstrates mild clearing of the previous right infrahilar infiltrate with now mild subsegmental atelectasis/scarring. Stable left lung subsegmental atelectasis/scarring and scattered calcified granulomas. Heart is not enlarged. No new/acute findings.
[2019-07-13] MEDS ORDERED: Klor Con 10 MEQ PO SCH (10:00)
[2019-07-13] MEDS ORDERED: Imdur 30 MG PO SCH (10:00)
[2019-07-13] MEDS ORDERED: VITAMIN D PO SCH (10:00)
[2019-07-13] MEDS ORDERED: Protonix 40MG Tablet PO SCH (10:00)
[2019-07-13] MEDS ORDERED: CALCITRIOL PO SCH (10:00)
[2019-07-13] MEDS ORDERED: BUMEX 1 MG PO SCH (10:00)
[2019-07-13] MEDS ORDERED: NON-FORMULARY ITEM (Cholecalciferol (Vitamin D3) [Vitamin D3] 1,000 UNIT) PO SCH (10:00)
[2019-07-13] MEDS ORDERED: ZYLOPRIM 100 MG PO SCH (10:00)
[2019-07-13] MEDS: Pepcid 20 MG PO SCH (11:40)
[2019-07-13] MEDS: Cyclobenzaprine 10 MG PO SCH (11:40)
[2019-07-13] MEDS: Mirapex 0.5 MG Tablet PO SCH (11:40)
[2019-07-13] MEDS: Coreg 3.125 MG PO SCH (11:41)
[2019-07-13] MEDS: Neurontin 400 MG PO SCH (11:42)
[2019-07-13] MEDS ORDERED: Coumadin 5 MG PO SCH (18:00)
--- NOTE | 2019-08-09 08:39 | PCM.SSS ---
History of Present Illness - Chief Complaint Chief Complaint: R intrahilar pneumonia, L1-L2 trnasverse process fractures Date: 07/13/19 History of Present Illness: is a 58 year old female, presented to ER last evening after sleep walking and falling injuring her back. Pt. placed in observation for the night , pt denies any paresthesia or changes in bowel or bladder. - Review of Systems Constitutional: No Fever, No Chills Eyes: No Symptoms Ears, Nose, & Throat: No Symptoms Respiratory: No Cough, No Short Of Breath Cardiac: No Chest Pain, No Edema, No Syncope Abdominal/Gastrointestinal: No Abdominal Pain, No Nausea, No Vomiting, No Diarrhea Genitourinary Symptoms: No Dysuria Musculoskeletal: Back Pain Skin: No Rash Neurological: No Dizziness, No Focal Weakness, No Sensory Changes Medications & Allergies Home Medications: Home Medication List Bumetanide 2 mg PO DAILY 05/11/19 [History Confirmed 07/12/19] Carvedilol 3.125 mg [Coreg 3.125 MG] 3.125 mg PO BID 05/11/19 [History Confirmed 07/12/19] Cholecalciferol (Vitamin D3) [Vitamin D3] 1,000 unit PO DAILY 05/11/19 [History Confirmed 07/12/19] Gabapentin 400 mg PO TID 05/11/19 [History Confirmed 07/12/19] Isosorbide Mononitrate [Isosorbide Mononitrate ER] 30 mg PO DAILY 05/11/19 [ History Confirmed 07/12/19] Nitroglycerin 0.4 mg Tablet [Nitrostat 0.4 MG Tablet] 0.4 mg SL Q5MIN PRN MR X 3 PRN 05/11/19 [History Confirmed 07/12/19] PANTOPRAZOLE 40 mg Tablet [Protonix 40MG Tablet] 40 mg PO QAM 05/11/19 [ History Confirmed 07/12/19] Potassium Chloride 10 Meq Tab* [Klor Con 10 MEQ] 10 meq PO DAILY 05/11/19 [ History Confirmed 07/12/19] Pramipexole Di-HCl [Mirapex] 1 mg PO BID 05/11/19 [History Confirmed 07/12/19] Rosuvastatin Calcium 20 mg PO HS 05/11/19 [History Confirmed 07/12/19] Warfarin Sodium 5 mg [Coumadin 5 MG] 5 mg PO DAILY 05/11/19 [History Confirmed 07/12/19] calcitrioL [Calcitriol] 0.25 mcg PO DAILY 05/11/19 [History Confirmed 07/12/19] metOLazone [Metolazone] 2.5 mg PO UD 05/11/19 [History Confirmed 07/12/19] Allopurinol 100 mg [Zyloprim 100 mg] 100 mg PO DAILY 07/12/19 [History Confirmed 07/12/19] Cyclobenzaprine HCl 10 mg [Cyclobenzaprine 10 MG] 10 mg PO TID 07/12/19 [ History Confirmed 07/12/19] buPROPion HCl [Bupropion HCl Sr] 200 mg PO BID 07/12/19 [History Confirmed 07/12] Hydrocodone Bit/Acetaminophen [Lortab 7.5-500 Tablet] 1 each PO QID 7 Days #28 tablet 07/13/19 [Rx] Allergies/Adverse Reactions: Allergies Allergy/AdvReac Type Severity Reaction Status Date / Time amoxicillin Allergy Verified 07/12/19 06:37 oxytetracycline Allergy Verified 07/12/19 06:37 [From Terramycin] oxytetracycline HCl Allergy Verified 07/12/19 06:37 [From Terramycin] Penicillins Allergy Verified 07/12/19 06:37 - Past Medical History Past Medical History: Yes Neurological History: Stroke, TIA ENT History: No Pertinent History Cardiac History: Aneurysm, Congestive Heart Failure, Hypertension, Myocardial Infarction ([place]) Respiratory History: CHF, Pneumonia Endocrine Medical History: No Pertinent History Musculoskelatal History: Osteoporosis GI Medical History: GERD History: No Pertinent History Pyscho-Social History: Anxiety, Depression Reproductive Disorders: Endometriosis Comment: LUPUS ANTICOAGULANT DISORDER, MORBID OBESITY, GOUT, ANXIETY, DEPRESSION , VENTRICULAR ARRHYTHMIA, CKD STAGE 4, OSTEOPOROSIS, HYPERGLYCEMIA, FRACTURE PATELLA 2016 - Female History Hx Last Menstrual Period: years ago Are you now?: No - Past Surgical History Past Surgical History: Yes Neuro Surgical History: No Pertinent History Cardiac History: Cardiac Stent Respiratory Surgery: No Pertinent History GI Surgical History: No Pertinent History Genitourinary Surgical Hx: No Pertinent History Musculskeletal Surgical Hx: No Pertinent History Female Surgical History: Hysterectomy Other Surgical History: CARPAL TUNNEL-RIGHT WRIST, RIGHT FOOT - Social History Smoking Status: Current every day smoker How long have you smoked: years Exposure to second hand smoke: No Alcohol: None Drug Use: marijuana - Physical Exam General Appearance: no apparent distress, alert Neurologic Exam: alert, cooperative Eye Exam: eyes nml inspection Ears, Nose, Throat Exam: normal ENT inspection Neck Exam: normal inspection, non-tender, supple, full range of motion Respiratory Exam: normal breath sounds, lungs clear, No respiratory distress Cardiovascular Exam: regular rate/rhythm, normal heart sounds, normal peripheral pulses Gastrointestinal/Abdomen Exam: soft, normal bowel sounds, No tenderness, No distention, No mass, No guarding Pelvic Exam: not done Rectal Exam: deferred Back Exam: vertebral tenderness Extremity Exam: normal range of motion, pelvis stable, No amputations Skin Exam: normal color, warm, dry Lymphatic Exam: No adenopathy Results - Labs Lab/Micro Results: Microbiology 07/12/19 09:27 Blood Culture Gram Stain - Final Blood Not Reportable Blood Culture - Final NO GROWTH 07/12/19 09:15 Blood Culture Gram Stain - Final Blood Not Reportable Blood Culture - Final NO GROWTH Assessment/Plan (1) Multiple transverse process fractures Status: Acute Assessment & Plan: Pain control measures Code(s): [id number] - (2) Right middle lobe pneumonia Status: Acute Qualifiers: Pneumonia type: due to unspecified organism Qualified Code(s): J18.9 - Pneumonia, unspecified organism Assessment & Plan: IV antibiotics Code(s): J18.9 - PNEUMONIA, UNSPECIFIED ORGANISM Hospital Summary - Hospital Course Hospital Course: Pt. admitted and pain controlled with medications, able to ambulate this morning. No symptoms now or prior regarding the found pneumonia, at this time it was felt no further benefit from hospitalization - Vitals & Intake/Output Vital Signs: Vital Signs Temperature 97.7 F 07/13/19 08:00 Pulse Rate 76 07/13/19 08:00 Respiratory Rate 19 07/13/19 08:00 Blood Pressure 157/70 07/13/19 08:00 O2 Sat by Pulse Oximetry 98 07/13/19 08:00 - Lab Result Diagrams: 07/13/19 04:30 07/13/19 04:30 Micro Results-Entire Visit: Microbiology 07/12/19 09:27 Blood Culture Gram Stain - Final Blood Not Reportable Blood Culture - Final NO GROWTH 07/12/19 09:15 Blood Culture Gram Stain - Final Blood Not Reportable Blood Culture - Final NO GROWTH - Procedures and Test Procedures and Tests throughout Hospitalization: Therapy Orders & Screens 07/12/19 14:07 EKG Comment: 07/12/19 16:03 OT Screen per Nursing Assess Comment: Protocol Order Physician Instructions: Greater than 3 points order OT Admission Screening Reason For Exam: Triggered on Admission Diagnosis: R intrahilar pneumonia, L1-L2 trnasverse process fractures Open Wound/Cellutlitis/Pressure Ulcers: No Acute Fx/ORIF/Change in wt bearing status: No Severe MUSCULOSKELETAL pain: Yes ADL Dysfunction: No Acute CVA w/Hemiparesis/Hemiplegia: No Decreased Functional Mobility/Strength: Yes Sprain/Strain: No Acute Post-op Mobility Dysfunction: No Total Points: 6 PT Screen per Nursing Assess Comment: Protocol Order Physician Instructions: Greater than 3 points order PT Admission Screenin Reason For Exam: Triggered on Admission Diagnosis: R intrahilar pneumonia, L1-L2 trnasverse process fractures Open Wound/Cellutlitis/Pressure Ulcers: No Acute Fx/ORIF/Change in wt bearing status: No Severe MUSCULOSKELETAL pain: Yes ADL Dysfunction: No Acute CVA w/Hemiparesis/Hemiplegia: No Decreased Functional Mobility/Strength: Yes Sprain/Strain: No Acute Post-op Mobility Dysfunction: No Total Points: 6 RT Screen per Nursing Assess ONCE Comment: Protocol Order Physician Instructions: Greater than 3 points order RT Admission Screen Reason For Exam: Triggered on Admission Diagnosis: R intrahilar pneumonia, L1-L2 trnasverse process fractures Diagnosis: R intrahilar pneumonia, L1-L2 trnasverse process fractures Pneumonia: Yes Home O2: No Asthma: No CHF: Yes Home CPAP/BIPAP: Yes Home Nebs/MDI: No Total Points: 11 Smoking Cessation Education ONCE Comment: Diagnosis: R intrahilar pneumonia, L1-L2 trnasverse process fractures Smoking Status: Current every day smoker How long have you smoked: years Have you smoked in the past 12 months: Yes Approximately how many cigarettes per day: 3-4 Do you dip or chew tobacco: No If,Former Smoker,when did you quit: 1.5 years - Discharge Discharge Date: 07/13/19 Disposition: Home, Self-Care Condition: Fair Prescriptions: New Hydrocodone Bit/Acetaminophen [Lortab 7.5-500 Tablet] 1 each PO QID 7 Days # 28 tablet Continue Bumetanide 2 mg PO DAILY calcitrioL [Calcitriol] 0.25 mcg PO DAILY Warfarin Sodium 5 mg [Coumadin 5 MG] 5 mg PO DAILY Cholecalciferol (Vitamin D3) [Vitamin D3] 1,000 unit PO DAILY Isosorbide Mononitrate [Isosorbide Mononitrate ER] 30 mg PO DAILY Rosuvastatin Calcium 20 mg PO HS Pramipexole Di-HCl [Mirapex] 1 mg PO BID Potassium Chloride 10 Meq Tab* [Klor Con 10 MEQ] 10 meq PO DAILY PANTOPRAZOLE 40 mg Tablet [Protonix 40MG Tablet] 40 mg PO QAM metOLazone [Metolazone] 2.5 mg PO UD Gabapentin 400 mg PO TID Carvedilol 3.125 mg [Coreg 3.125 MG] 3.125 mg PO BID Nitroglycerin 0.4 mg Tablet [Nitrostat 0.4 MG Tablet] 0.4 mg SL Q5MIN PRN MR X 3 PRN PRN Reason: angina buPROPion HCl [Bupropion HCl Sr] 200 mg PO BID Cyclobenzaprine HCl 10 mg [Cyclobenzaprine 10 MG] 10 mg PO TID Allopurinol 100 mg [Zyloprim 100 mg] 100 mg PO DAILY Instructions: Pneumonia in Adults, Fracture (DC), Low Back Pain (DC) Follow up with: MARIA EUGENIA GIRARD MD [Primary Care Provider] - 07/19/19 9:30 am Forms: Discharge Instructions
== END 2019-07-13 12:45 | disposition home or self-care (01) ==
LOC: ED 06:20 → MED SURG 14:00
PROVIDERS: ADMIT Family Medicine; ATTEND Family Medicine
DX: S32.009A Unspecified fracture of unspecified lumbar vertebra, initial encounter for closed fracture (principal); J18.1 Lobar pneumonia, unspecified organism; W19.XXXA Unspecified fall, initial encounter; I10 Essential (primary) hypertension; G47.30 Sleep apnea, unspecified; Z79.01 Long term (current) use of anticoagulants; Z79.899 Other long term (current) drug therapy
CPT/HCPCS: 36415; 70450; 71045; 72125; 72131; 73502; 80048; 80053; 83605; 83880; 85025; 85610; 87040; 87631; 93005; 93268; 96365; 99285; G0378; J0692; J2270; A9270-GY

== ENCOUNTER 2019-09-03 22:02 | Emergency (ER) | payer MEDICARE ==
--- NOTE | 2019-09-03 22:23 | ERPHSYRPT ---
- History of Present Illness Time Seen by Provider: 09/03/19 22:20 Historian: patient Exam Limitations: no limitations Patient Subjective Stated Complaint: Patient is a 58-year-old female presents to our ED with complaints of chest pain, burning sensation in her chest. Patient has had similar symptoms in the past and was diagnosed with pneumonia. Physician History: Patient is a 58-year-old female presents to our ED with complaints of substernal chest pain. Pain worse with deep breathing. Patient believes that she has pneumonia. Symptoms are mild to moderate intensity. Exertion does not worsen her symptoms. No diaphoresis. No trauma. No fever. Cough is dry nonproductive. Patient voices no other complaints at this time. Timing/Duration: yesterday, improved Activities at Onset: none Quality: aching Location: substernal Chest Pain Radiation: no radiation Severity of Pain-Max: moderate Severity of Pain-Current: moderate Modifying Factors: Improves With: nothing Associated Symptoms: denies symptoms, cough, No nausea, No palpitations, No shortness of breath Aspirin Treatment Today: 325 mg x 1 Allergies/Adverse Reactions: amoxicillin Allergy (Verified 09/03/19 22:31) oxytetracycline [From Terramycin] Allergy (Verified 09/03/19 22:31) oxytetracycline HCl [From Terramycin] Allergy (Verified 09/03/19 22:31) Penicillins Allergy (Verified 09/03/19 22:31) Home Medications: Bumetanide 2 mg PO DAILY 05/11/19 [History] Carvedilol 3.125 mg [Coreg 3.125 MG] 3.125 mg PO BID 05/11/19 [History] Cholecalciferol (Vitamin D3) [Vitamin D3] 1,000 unit PO DAILY 05/11/19 [History] Gabapentin 400 mg PO TID 05/11/19 [History] Isosorbide Mononitrate [Isosorbide Mononitrate ER] 30 mg PO DAILY 05/11/19 [ History] Nitroglycerin 0.4 mg Tablet [Nitrostat 0.4 MG Tablet] 0.4 mg SL Q5MIN PRN MR X 3 PRN 05/11/19 [History] PANTOPRAZOLE 40 mg Tablet [Protonix 40MG Tablet] 40 mg PO QAM 05/11/19 [ History] Potassium Chloride 10 Meq Tab* [Klor Con 10 MEQ] 10 meq PO DAILY 05/11/19 [ History] Pramipexole Di-HCl [Mirapex] 1 mg PO BID 05/11/19 [History] Rosuvastatin Calcium 20 mg PO HS 05/11/19 [History] Warfarin Sodium 5 mg [Coumadin 5 MG] 5 mg PO DAILY 05/11/19 [History] calcitrioL [Calcitriol] 0.25 mcg PO DAILY 05/11/19 [History] metOLazone [Metolazone] 2.5 mg PO UD 05/11/19 [History] Allopurinol 100 mg [Zyloprim 100 mg] 100 mg PO DAILY 07/12/19 [History] Cyclobenzaprine HCl 10 mg [Cyclobenzaprine 10 MG] 10 mg PO TID 07/12/19 [ History] buPROPion HCl [Bupropion HCl Sr] 200 mg PO BID 07/12/19 [History] Hx Tetanus, Diphtheria Vaccination/Date Given: No Hx Influenza Vaccination/Date Given: No Hx Pneumococcal Vaccination/Date Given: Yes - Review of Systems Constitutional: No Fever, No Chills Eyes: No Symptoms Ears, Nose, & Throat: No Symptoms Respiratory: No Symptoms, No Cough, No Dyspnea Cardiac: No Symptoms, Chest Pain, No Edema, No Syncope Abdominal/Gastrointestinal: No Symptoms, No Abdominal Pain, No Nausea, No Vomiting, No Diarrhea Genitourinary Symptoms: No Symptoms, No Dysuria Musculoskeletal: No Symptoms, No Back Pain, No Neck Pain Skin: No Symptoms, No Rash Neurological: No Symptoms, No Dizziness, No Focal Weakness, No Sensory Changes Psychological: No Symptoms Endocrine: No Symptoms, Excessive Sweating Hematologic/Lymphatic: No Symptoms All Other Systems: Reviewed and Negative - Past Medical History Pertinent Past Medical History: Yes Neurological History: Stroke, TIA ENT History: No Pertinent History Cardiac History: Aneurysm, Congestive Heart Failure, Hypertension, Myocardial Infarction ([place]) Respiratory History: CHF, Pneumonia Endocrine Medical History: No Pertinent History Musculoskeletal History: Osteoporosis GI Medical History: GERD History: No Pertinent History Psycho-Social History: Anxiety, Depression Female Reproductive Disorders: Endometriosis Other Medical History: LUPUS ANTICOAGULANT DISORDER, MORBID OBESITY, GOUT, ANXIETY, DEPRESSION, VENTRICULAR ARRHYTHMIA, CKD STAGE 4, OSTEOPOROSIS, HYPERGLYCEMIA, FRACTURE PATELLA 2016 - Past Surgical History Past Surgical History: Yes Neuro Surgical History: No Pertinent History Cardiac: Cardiac Stent Respiratory: No Pertinent History Gastrointestinal: No Pertinent History Genitourinary: No Pertinent History Musculoskeletal: No Pertinent History Female Surgical History: Hysterectomy Other Surgical History: CARPAL TUNNEL-RIGHT WRIST, RIGHT FOOT - Social History Smoking Status: Current every day smoker How long have you smoked: years Exposure to second hand smoke: No Drug Use: marijuana Patient Lives Alone: Yes - Nursing Vital Signs Nursing Vital Signs: Initial Vital Signs Temperature 97.5 F 09/03/19 22:10 Pulse Rate 104 H 09/03/19 22:10 Respiratory Rate 26 H 09/03/19 22:10 Blood Pressure 130/78 09/03/19 22:10 O2 Sat by Pulse Oximetry 97 09/03/19 22:10 Pain Scale Pain Intensity 8 - Physical Exam General Appearance: no apparent distress, alert Eye Exam: PERRL/EOMI, eyes nml inspection Ears, Nose, Throat Exam: normal ENT inspection, moist mucous membranes Neck Exam: normal inspection, non-tender, supple, full range of motion Respiratory Exam: normal breath sounds, lungs clear, No respiratory distress Cardiovascular Exam: regular rate/rhythm, normal heart sounds Gastrointestinal/Abdomen Exam: soft, No tenderness, No mass Back Exam: normal inspection, No CVA tenderness, No vertebral tenderness Extremity Exam: normal inspection, normal range of motion, other (Chronic lower extremity pitting edema.) Neurologic Exam: alert, oriented x 3, cooperative, normal mood/affect, sensation nml, No motor deficits Skin Exam: normal color, warm, dry SpO2 Interpretation: normal SpO2: 97 O2 Delivery: Room Air - Course EKG Interpreted by Me: Sinus Tach, NORMAL AXIS, NORMAL INTERVALS Ordered Tests: Active Orders 24 hr Category Date Time Status Extruding Department Supervisor STAT Care 09/03/19 22:24 Active IV Insertion STAT Care 09/03/19 22:23 Active Oxygen-ED Only Nasal Cannula 2 lpm Care 09/03/19 23:10 Active Pulse Oximetry (ED) STAT Care 09/03/19 22:23 Active CHEST 1 VIEW (PORTABLE) Stat Exams 09/03/19 22:23 Taken CBC W DIFF Stat Lab 09/03/19 22:37 Completed CMP Stat Lab 09/03/19 22:37 Completed D-DIMER QUANTITATIVE Stat Lab 09/03/19 22:37 Completed PROTIME WITH INR Stat Lab 09/04/19 00:07 Completed PTT Stat Lab 09/04/19 00:07 Completed TROPONIN Q3H Lab 09/03/19 22:37 Completed TROPONIN Q3H Lab 09/04/19 01:30 Ordered TROPONIN Q3H Lab 09/04/19 04:30 Ordered TROPONIN Q3H Lab 09/04/19 07:30 Ordered TROPONIN Q3H Lab 09/04/19 10:30 Ordered Medication Summary Generic Name Dose Route Start Last Admin Trade Name Freq PRN Reason Stop Dose Admin Heparin Sodium/Dextrose 25,000 units in 250 mls @ 13 mls/hr 09/04/19 01:00 Heparin 25,000 Units/D5w 250ml Premix IV 10/04/19 00:59 .[id number] TRESSA Discontinued Medications Generic Name Dose Route Start Last Admin Trade Name Freq PRN Reason Stop Dose Admin Aspirin 324 mg 09/04/19 00:35 Baby Aspirin 81 Mg Chew PO 09/04/19 00:36 STAT ONE Heparin Sodium (Beef Lung) 5,000 unit 09/04/19 00:45 Heparin 5000 Units/0.5 Ml (High Risk Med) IV 09/04/19 00:46 STAT ONE Morphine Sulfate 4 mg 09/03/19 23:03 09/03/19 23:06 Morphine Sulfate 4 Mg Inj IV 09/03/19 23:04 4 mg STAT ONE Administration Morphine Sulfate Confirm 09/03/19 23:04 Morphine Sulfate 4 Mg Inj Administered 09/03/19 23:05 Dose 4 mg .ROUTE .STK-MED ONE Lab/Rad Data: Laboratory Result Diagrams 09/03/19 22:37 09/03/19 22:37 Laboratory Results 09/04/19 09/03/19 09/03/19 Range/Units 00:07 22:37 22:37 WBC (4.0-10.5) K/mm3 RBC (4.1-5.4) M/mm3 Hgb (12.0-16.0) gm/dl Hct (35-47) % MCV (78-100) fl MCH (26-32) pg MCHC (32-36) g/dl RDW (11.5-14.0) % Plt Count (150-450) K/mm3 MPV (7.5-11.0) fl Gran % (36.0-66.0) % Eos # (Auto) (0-0.5) Absolute Lymphs (auto) (1.0-4.6) Absolute Monos (auto) (0.0-1.3) Lymphocytes % (24.0-44.0) % Monocytes % (0.0-12.0) % Eosinophils % (0.00-5.0) % Basophils % (0.0-0.4) % Absolute Granulocytes (1.4-6.9) Basophils # (0-0.4) PT 16.5 H (9.95-12.35) SECONDS INR 1.45 (0.8-3.0) APTT 76.6 H (25.3-37.0) SECONDS D-Dimer 689 H* (215-500) ng/mL Sodium (137-145) mmol/L Potassium (3.5-5.1) mmol/L Chloride (98-107) mmol/L Carbon Dioxide (22-30) mmol/L Anion Gap (5-15) MEQ/L BUN (7-17) mg/dL Creatinine (0.52-1.04) mg/dL Estimated GFR ML/MIN Glucose (74-106) mg/dL Calcium (8.4-10.2) mg/dL Total Bilirubin (0.2-1.3) mg/dL AST (14-36) U/L ALT (0-35) U/L Alkaline Phosphatase (38-126) U/L Troponin I 0.158 H* (0.000-0.034) ng/mL Serum Total Protein (6.3-8.2) g/dL Albumin (3.5-5.0) g/dL 09/03/19 09/03/19 Range/Units 22:37 22:37 WBC 10.3 (4.0-10.5) K/mm3 RBC 3.96 L (4.1-5.4) M/mm3 Hgb 11.8 L (12.0-16.0) gm/dl Hct 37.0 (35-47) % MCV 93.4 (78-100) fl MCH 29.8 (26-32) pg MCHC 31.9 L (32-36) g/dl RDW 15.5 H (11.5-14.0) % Plt Count 139 L (150-450) K/mm3 MPV 10.9 (7.5-11.0) fl Gran % 67.5 H (36.0-66.0) % Eos # (Auto) 0.40 (0-0.5) Absolute Lymphs (auto) 2.30 (1.0-4.6) Absolute Monos (auto) 0.61 (0.0-1.3) Lymphocytes % 22.3 L (24.0-44.0) % Monocytes % 5.9 (0.0-12.0) % Eosinophils % 3.9 (0.00-5.0) % Basophils % 0.4 (0.0-0.4) % Absolute Granulocytes 6.96 H (1.4-6.9) Basophils # 0.04 (0-0.4) PT (9.95-12.35) SECONDS INR (0.8-3.0) APTT (25.3-37.0) SECONDS D-Dimer (215-500) ng/mL Sodium 138 (137-145) mmol/L Potassium 3.7 (3.5-5.1) mmol/L Chloride 106 (98-107) mmol/L Carbon Dioxide 24 (22-30) mmol/L Anion Gap 12.0 (5-15) MEQ/L BUN 31 H (7-17) mg/dL Creatinine 1.98 H (0.52-1.04) mg/dL Estimated GFR 27.4 ML/MIN Glucose 157 H (74-106) mg/dL Calcium 9.4 (8.4-10.2) mg/dL Total Bilirubin 0.60 (0.2-1.3) mg/dL AST 21 (14-36) U/L ALT 14 (0-35) U/L Alkaline Phosphatase 143 H (38-126) U/L Troponin I (0.000-0.034) ng/mL Serum Total Protein 7.2 (6.3-8.2) g/dL Albumin 3.8 (3.5-5.0) g/dL - Progress Progress: improved Air Movement: good Progress Note: 09/04/19 00:51 Patient reassessed. No active chest pain. Troponin elevated. D-dimer elevated. Heparin drip initiated. Due to chronic renal insufficiency, radiology department declined CTA chest. We will not have VQ scan available till . Case discussed with Dr. Mccann who accepts transfer to [facility]. Case discussed with Dr.Som Nolan who advises aspirin dose. Aspirin administered. Heparin bolus and infusion initiated. Nitropaste administered. Plan of care discussed with patient. She agrees to transfer to [facility] for further evaluation and treatment. Blood Culture(s) Obtained: No Antibiotics given: No Discussed with Dr.: Other (DR Mccann and Dr. Nolan) Counseled pt/family regarding: lab results, diagnosis, rad results - Departure Departure Disposition: Transfer, Extended Care Facility Clinical Impression: NSTEMI (non-ST elevated myocardial infarction), Elevated troponin I level, Elevated d-dimer, Chronic renal insufficiency Condition: Stable Critical Care Time: Yes Critical Care Time(excluding separately billable procedures): Critical 75-104 mins Referrals: MARIA EUGENIA GIRARD MD [Primary Care Provider] - Instructions: Angina (DC), Chest Pain (DC)
[2019-09-03 22:48] LABS: Absolute Neutrophil Ct (ANC) 6.96 (1.4-6.9); BASOPHIL % 0.4 % (0.0-0.4); Basophil (Absolute #) 0.04 (0-0.4); Eosinophil % 3.9 % (0.00-5.0); Hemoglobin 11.8 gm/dl (12.0-16.0); Lymphocytes % 22.3 % (24.0-44.0); Mean Cell Volume 93.4 fl (78-100); Mean Corpuscular Hemoglobin 29.8 pg (26-32); Mean Corpuscular Hgb Concent. 31.9 g/dl (32-36); Mean Platelet Volume 10.9 fl (7.5-11.0); Monocyte (Absolute #) 0.61 (0.0-1.3); Monocytes % 5.9 % (0.0-12.0); Neutrophil % 67.5 % (36.0-66.0); Platelet Count 139 K/mm3 (150-450); Red Blood Count 3.96 M/mm3 (4.1-5.4); Red Cell Distribution Width 15.5 % (11.5-14.0); White Blood Count 10.3 K/mm3 (4.0-10.5)
[2019-09-03 23:02] LABS: ALBUMIN 3.8 g/dL (3.5-5.0); BILIRUBIN,TOTAL 0.6 mg/dL (0.2-1.3); Calcium 9.4 mg/dL (8.4-10.2); Creatinine 1 1.98 mg/dL (0.52-1.04); Potassium 3.7 mmol/L (3.5-5.1); Total Protein 7.2 g/dL (6.3-8.2)
[2019-09-03] MEDS ORDERED: MORPHINE SULFATE 4 MG INJ ONE (23:04)
[2019-09-03] MEDS: MORPHINE SULFATE 4 MG INJ IV ONE (23:06)
[2019-09-04 00:10] LABS: INR 1.45 (0.8-3.0); PROTIME 16.5 SECONDS (9.95-12.35)
[2019-09-04 00:12] LABS: PTT 76.6 SECONDS (25.3-37.0)
[2019-09-04] MEDS ORDERED: Heparin 5000 UNITS/0.5 ML (HIGH RISK MED) ONE (01:00)
[2019-09-04] MEDS ORDERED: Heparin 25,000 units/D5W 250ML PREMIX 25,000 UNITS/250 ML BAG IV ONE (01:00)
[2019-09-04] MEDS ORDERED: BABY ASPIRIN 81 MG CHEW ONE (01:00)
[2019-09-04] MEDS: BABY ASPIRIN 81 MG CHEW PO ONE (01:06)
[2019-09-04] MEDS: Heparin 25,000 units/D5W 250ML PREMIX 25,000 UNITS/250 ML BAG IV SCH (01:07)
[2019-09-04] MEDS: Heparin 5000 UNITS/0.5 ML (HIGH RISK MED) IV ONE (01:07)
[2019-09-04] MEDS ORDERED: NITRO-BID 2% UD PACKETS ONE (01:19)
[2019-09-04] MEDS: NITRO-BID 2% UD PACKETS TOP ONE (01:23)
[2019-09-04 02:43] VITALS: BP 125/68; PULSE 86; O2SAT 97
--- NOTE | 2019-09-04 09:06 | XRAY ---
Indication: Chest pain. Comparison: July 13, 2019. Portable chest again demonstrates bibasilar subsegmental atelectasis/scarring and a few scattered calcified granulomas. Heart is not enlarged for AP portable technique. No new or acute cardiopulmonary abnormalities.
== END 2019-09-04 02:40 | disposition short-term general hospital (02) ==
LOC: ED 22:02
DX: I21.4 Non-ST elevation (NSTEMI) myocardial infarction (principal); R74.8 Abnormal levels of other serum enzymes; M10.9 Gout, unspecified; I50.9 Heart failure, unspecified; I12.9 Hypertensive chronic kidney disease with stage 1 through stage 4 chronic kidney disease, or unspecified chronic kidney disease; N18.4 Chronic kidney disease, stage 4 (severe); R79.89 Other specified abnormal findings of blood chemistry; Z86.73 Personal history of transient ischemic attack (TIA), and cerebral infarction without residual deficits; Z79.01 Long term (current) use of anticoagulants
CPT/HCPCS: 36000; 36415; 71045; 80053; 84484; 85025; 85379; 85610; 85730; 93041; 94760; 96374; 96375; 99285; 99291; 99292; J1644; J2270; A9270-GY

== ENCOUNTER 2019-09-19 11:22 | Observation (INO) | payer MEDICARE ==
[2019-09-19] MEDS ORDERED: solu-MEDROL 125 MG IV ONE (11:23)
[2019-09-19] MEDS ORDERED: DUONEB 0.5-3 MG/3 ml Neb IH ONE ×2 (11:23→11:46)
--- NOTE | 2019-09-19 11:33 | ERPHSYRPT ---
- History of Present Illness Time Seen by Provider: 09/19/19 11:27 Source: patient Exam Limitations: no limitations Timing/Duration: today Allergies/Adverse Reactions: amoxicillin Allergy (Verified 09/19/19 11:36) oxytetracycline [From Terramycin] Allergy (Verified 09/19/19 11:36) oxytetracycline HCl [From Terramycin] Allergy (Verified 09/19/19 11:36) Penicillins Allergy (Verified 09/19/19 11:36) Home Medications: Bumetanide 2 mg PO DAILY 05/11/19 [History] Carvedilol 3.125 mg [Coreg 3.125 MG] 3.125 mg PO BID 05/11/19 [History] Cholecalciferol (Vitamin D3) [Vitamin D3] 1,000 unit PO DAILY 05/11/19 [History] Gabapentin 400 mg PO TID 05/11/19 [History] Isosorbide Mononitrate [Isosorbide Mononitrate ER] 30 mg PO DAILY 05/11/19 [ History] Nitroglycerin 0.4 mg Tablet [Nitrostat 0.4 MG Tablet] 0.4 mg SL Q5MIN PRN MR X 3 PRN 05/11/19 [History] PANTOPRAZOLE 40 mg Tablet [Protonix 40MG Tablet] 40 mg PO QAM 05/11/19 [ History] Potassium Chloride 10 Meq Tab* [Klor Con 10 MEQ] 10 meq PO DAILY 05/11/19 [ History] Pramipexole Di-HCl [Mirapex] 1 mg PO BID 05/11/19 [History] Rosuvastatin Calcium 20 mg PO HS 05/11/19 [History] Warfarin Sodium 5 mg [Coumadin 5 MG] 5 mg PO DAILY 05/11/19 [History] calcitrioL [Calcitriol] 0.25 mcg PO DAILY 05/11/19 [History] metOLazone [Metolazone] 2.5 mg PO UD 05/11/19 [History] Allopurinol 100 mg [Zyloprim 100 mg] 100 mg PO DAILY 07/12/19 [History] Cyclobenzaprine HCl 10 mg [Cyclobenzaprine 10 MG] 10 mg PO TID 07/12/19 [ History] buPROPion HCl [Bupropion HCl Sr] 200 mg PO BID 07/12/19 [History] Hx Tetanus, Diphtheria Vaccination/Date Given: No Hx Influenza Vaccination/Date Given: No Hx Pneumococcal Vaccination/Date Given: Yes - Review of Systems Constitutional: No Fever, No Chills Eyes: No Symptoms Ears, Nose, & Throat: No Symptoms Respiratory: Cough, Dyspnea Cardiac: Edema, No Chest Pain, No Syncope Abdominal/Gastrointestinal: No Symptoms, No Abdominal Pain, No Nausea, No Vomiting, No Diarrhea Genitourinary Symptoms: No Symptoms, No Dysuria Musculoskeletal: No Symptoms, No Back Pain, No Neck Pain Skin: No Symptoms, No Rash Neurological: No Symptoms, No Dizziness, No Focal Weakness, No Sensory Changes Psychological: No Symptoms Endocrine: No Symptoms All Other Systems: Reviewed and Negative - Past Medical History Pertinent Past Medical History: Yes Neurological History: Stroke, TIA ENT History: No Pertinent History Cardiac History: Aneurysm, Congestive Heart Failure, Hypertension, Myocardial Infarction (NM) Respiratory History: CHF, Pneumonia Endocrine Medical History: No Pertinent History Musculoskeletal History: Osteoporosis GI Medical History: GERD History: No Pertinent History Psycho-Social History: Anxiety, Depression Female Reproductive Disorders: Endometriosis Other Medical History: LUPUS ANTICOAGULANT DISORDER, MORBID OBESITY, GOUT, ANXIETY, DEPRESSION, VENTRICULAR ARRHYTHMIA, CKD STAGE 4, OSTEOPOROSIS, HYPERGLYCEMIA, FRACTURE PATELLA 2015 - Past Surgical History Past Surgical History: Yes Neuro Surgical History: No Pertinent History Cardiac: Cardiac Stent Respiratory: No Pertinent History Gastrointestinal: No Pertinent History Genitourinary: No Pertinent History Musculoskeletal: No Pertinent History Female Surgical History: Hysterectomy Other Surgical History: CARPAL TUNNEL-RIGHT WRIST, RIGHT FOOT - Social History Smoking Status: Current every day smoker How long have you smoked: years Exposure to second hand smoke: No Drug Use: marijuana Patient Lives Alone: Yes - Nursing Vital Signs Nursing Vital Signs: Initial Vital Signs Temperature 97.8 F 09/19/19 11:23 Pulse Rate 102 H 09/19/19 11:23 Respiratory Rate 24 09/19/19 11:23 Blood Pressure 177/105 09/19/19 11:23 O2 Sat by Pulse Oximetry 95 09/19/19 11:23 Pain Scale Pain Intensity 4 - Physical Exam General Appearance: no apparent distress, alert Eye Exam: PERRL/EOMI Ears, Nose, Throat Exam: hearing grossly normal Neck Exam: normal inspection, supple Respiratory Exam: respiratory distress, airway intact, diminished breath sounds , accessory muscle use, No crackles/rales, No pleural rub Cardiovascular/Chest Exam: normal heart sounds, regular rate/rhythm Abdominal/Gastrointestinal Exam: soft, No tenderness, No distention, No mass Rectal Exam: deferred Extremity Exam: non-tender, normal range of motion, normal inspection, no calf tenderness, no pedal edema Peripheral Pulses Exam: dorsalis-pedis (R): 1+, dorsalis-pedis (L): 1+ Neurologic Exam: alert, oriented x 3, cooperative, hand sprayer II-XII nml as tested, sensation nml, No motor deficits Skin Exam: normal color, warm, No dry SpO2 Interpretation: normal SpO2: 98 O2 Delivery: Nasal Cannula - Course Nursing assessment & vital signs reviewed: Yes EKG Interpreted by Me: Sinus Tach (rate 109), Left Bradshaw Deviation, NORMAL INTERVALS - Radiology Exams Chest X-ray Interpretation: Teleradiologist Report (limited by body habitus. However no obvious acute findings.) Ordered Tests: Active Orders 24 hr Category Date Time Status Warehouse Technician STAT Care 09/19/19 11:26 Active EKG-ER Only STAT Care 09/19/19 11:23 Active Dow [Catheter-Carson Dow] STAT Care 09/19/19 14:29 Active IV Insertion STAT Care 09/19/19 11:23 Active Oxygen-ED Only Nasal Cannula 4 lpm Care 09/19/19 11:23 Active CHEST 1 VIEW (PORTABLE) Stat Exams 09/19/19 11:25 Completed PICC LINE PLACEMENT Stat Exams 09/19/19 Ordered ABG [ARTERIAL BLOOD GASES] Stat Lab 09/19/19 14:29 Completed ARTERIAL BLOOD GASES Stat Lab 09/19/19 11:42 Completed BLOOD CULTURE Stat Lab 09/19/19 12:20 Received CBC W DIFF Stat Lab 09/19/19 12:12 Completed CMP Stat Lab 09/19/19 12:12 Completed MAGNESIUM Stat Lab 09/19/19 12:12 Completed NT PRO BNP Stat Lab 09/19/19 12:12 Completed PROTIME WITH INR Stat Lab 09/19/19 12:12 Completed PTT Stat Lab 09/19/19 12:12 Completed TROPONIN Q3H Lab 09/19/19 12:12 Completed TROPONIN Q3H Lab 09/19/19 14:00 Completed TROPONIN Q3H Lab 09/19/19 17:30 Ordered TROPONIN Q3H Lab 09/19/19 20:30 Ordered TROPONIN Q3H Lab 09/19/19 23:30 Ordered UA W/RFX UR CULTURE Stat Lab 09/19/19 Completed BiPap/CPAP STAT RT 09/19/19 13:41 Active Respiratory Therapy Assessment DAILY RT 09/19/19 11:58 Active Transfer Order Routine Transfer 09/19/19 Ordered Medication Summary Discontinued Medications Generic Name Dose Route Start Last Admin Trade Name Freq PRN Reason Stop Dose Admin Albuterol/Ipratropium 3 ml 09/19/19 11:23 09/19/19 11:49 Duoneb 0.5-3 Mg/3 Ml Neb IH 09/19/19 11:24 3 ml STAT ONE Administration Albuterol/Ipratropium Confirm 09/19/19 11:46 Duoneb 0.5-3 Mg/3 Ml Neb Administered 09/19/19 11:47 Dose 3 ml IH .STK-MED ONE Furosemide 40 mg 09/19/19 13:09 09/19/19 13:05 Lasix 40 Mg/4 Ml IV 09/19/19 13:10 40 mg STAT ONE Administration Furosemide Confirm 09/19/19 13:29 Lasix 40 Mg/4 Ml Administered 09/19/19 13:30 Dose 40 mg .ROUTE .STK-MED ONE Nitroglycerin/Dextrose 250 mls @ 1.5 mls/hr 09/19/19 13:40 Ntg 0.2mg/Ml In D5w Glass IV 10/19/19 13:39 .Q24H PRN CHEST PAIN Protocol 5 MCG/MIN Sodium Chloride Confirm 09/19/19 15:15 Sodium Chloride 0.9% 1000 Ml Administered 09/19/19 15:16 Dose 1,000 mls @ ud .ROUTE .STK-MED ONE Methylprednisolone Sodium Succinate 125 mg 09/19/19 11:23 09/19/19 12:01 Solu-Medrol 125 Mg IV 09/19/19 11:24 125 mg STAT ONE Administration Methylprednisolone Sodium Succinate Confirm 09/19/19 11:59 Solu-Medrol 125 Mg Administered 09/19/19 12:00 Dose 125 mg .ROUTE .STK-MED ONE Morphine Sulfate 2 mg 09/19/19 13:08 09/19/19 14:35 Morphine Sulfate 2 Mg Inj IV 09/19/19 13:09 2 mg STAT ONE Administration Morphine Sulfate Confirm 09/19/19 13:28 Morphine Sulfate 2 Mg Inj Administered 09/19/19 13:29 Dose 2 mg .ROUTE .STK-MED ONE Nitroglycerin Confirm 09/19/19 13:39 Nitro-Bid 2% Ud Packets Administered 09/19/19 13:40 Dose 1 gm .ROUTE .STK-MED ONE Nitroglycerin 1 gm 09/19/19 14:33 09/19/19 14:00 Nitro-Bid 2% Ud Packets TOP 09/19/19 14:34 1 gm STAT ONE Administration Lab/Rad Data: Laboratory Result Diagrams 09/19/19 12:12 09/19/19 12:12 Laboratory Results 09/19/19 09/19/19 09/19/19 Range/Units Unknown 14:29 14:00 WBC (4.0-10.5) K/mm3 RBC (4.1-5.4) M/mm3 Hgb (12.0-16.0) gm/dl Hct (35-47) % MCV (78-100) fl MCH (26-32) pg MCHC (32-36) g/dl RDW (11.5-14.0) % Plt Count (150-450) K/mm3 MPV (7.5-11.0) fl Gran % (36.0-66.0) % Eos # (Auto) (0-0.5) Absolute Lymphs (auto) (1.0-4.6) Absolute Monos (auto) (0.0-1.3) Lymphocytes % (24.0-44.0) % Monocytes % (0.0-12.0) % Eosinophils % (0.00-5.0) % Basophils % (0.0-0.4) % Absolute Granulocytes (1.4-6.9) Basophils # (0-0.4) PT (9.95-12.35) SECONDS INR (0.8-3.0) APTT (25.3-37.0) SECONDS Puncture Site RIGHT RADIAL pCO2 38 (35-45) mmHg pO2 384 H* (75-100) mmHg Base Excess -4.2 L (-2.0-2.0) O2 Saturation 97.6 (94-100) g/dF ABG pH 7.35 (7.35-7.45) ABG HCO3 21.0 L (22-28) ABG O2 Sat (Measured) 99.7 (95-100) % Jos Test YES A-a Gradient 282 a/A Ratio 0.58 Hemoglobin 13.0 Carboxyhemoglobin 1.1 (0.0-6.9) % THgb Methemoglobin 1.0 L (1.4-1.5) % Potassium 4.1 (3.5-5.1) Temperature 37.0 C POC O2 Flow Rate 100 % Vent Mode BiPAP Inspiratory BiPAP 14 Expiratory BiPAP 8 Sodium (137-145) mmol/L Chloride (98-107) mmol/L Carbon Dioxide (22-30) mmol/L Anion Gap (5-15) MEQ/L BUN (7-17) mg/dL Creatinine (0.52-1.04) mg/dL Estimated GFR ML/MIN Glucose (74-106) mg/dL Calcium (8.4-10.2) mg/dL Magnesium (1.6-2.3) mg/dL Total Bilirubin (0.2-1.3) mg/dL AST (14-36) U/L ALT (0-35) U/L Alkaline Phosphatase (38-126) U/L Troponin I 0.143 H* (0.000-0.034) ng/mL NT-Pro-B Natriuret Pep (0-900) pg/mL Serum Total Protein (6.3-8.2) g/dL Albumin (3.5-5.0) g/dL Urine Color YELLOW (YELLOW) Urine Appearance CLEAR (CLEAR) Urine pH 7.0 (5-6) Ur Specific [place] 1.012 (1.005-1.025) Urine Protein 100 (Negative) Urine Ketones NEGATIVE (NEGATIVE) Urine Blood NEGATIVE (0-5) Shin/ul Urine Nitrite NEGATIVE (NEGATIVE) Urine Bilirubin NEGATIVE (NEGATIVE) Urine Urobilinogen NEGATIVE (0-1) mg/dL Ur Leukocyte Esterase NEGATIVE (NEGATIVE) Urine WBC (Auto) 3-5 (0-5) /HPF Urine RBC (Auto) NONE (0-2) /HPF U Epithel Cells (Auto) NONE (FEW) /HPF Urine Bacteria (Auto) NONE (NEGATIVE) /HPF Urine Mucus (Auto) SLIGHT (NEGATIVE) /HPF Urine Culture Reflexed NO (NO) Urine Glucose NEGATIVE (NEGATIVE) mg/dL Influenza Type A Ag (NEGATIVE) Influenza Type B Ag (NEGATIVE) RSV (PCR) (Negative) 09/19/19 09/19/19 09/19/19 Range/Units 12:12 12:12 12:12 WBC (4.0-10.5) K/mm3 RBC (4.1-5.4) M/mm3 Hgb (12.0-16.0) gm/dl Hct (35-47) % MCV (78-100) fl MCH (26-32) pg MCHC (32-36) g/dl RDW (11.5-14.0) % Plt Count (150-450) K/mm3 MPV (7.5-11.0) fl Gran % (36.0-66.0) % Eos # (Auto) (0-0.5) Absolute Lymphs (auto) (1.0-4.6) Absolute Monos (auto) (0.0-1.3) Lymphocytes % (24.0-44.0) % Monocytes % (0.0-12.0) % Eosinophils % (0.00-5.0) % Basophils % (0.0-0.4) % Absolute Granulocytes (1.4-6.9) Basophils # (0-0.4) PT 15.9 H (9.95-12.35) SECONDS INR 1.40 (0.8-3.0) APTT 95.1 H (25.3-37.0) SECONDS Puncture Site pCO2 (35-45) mmHg pO2 (75-100) mmHg Base Excess (-2.0-2.0) O2 Saturation (94-100) g/dF ABG pH (7.35-7.45) ABG HCO3 (22-28) ABG O2 Sat (Measured) (95-100) % Jos Test A-a Gradient a/A Ratio Hemoglobin Carboxyhemoglobin (0.0-6.9) % THgb Methemoglobin (1.4-1.5) % Potassium 4.0 (3.5-5.1) Temperature C POC O2 Flow Rate % Vent Mode Inspiratory BiPAP Expiratory BiPAP Sodium 142 (137-145) mmol/L Chloride 112 H (98-107) mmol/L Carbon Dioxide 22 (22-30) mmol/L Anion Gap 12.0 (5-15) MEQ/L BUN 25 H (7-17) mg/dL Creatinine 1.48 H (0.52-1.04) mg/dL Estimated GFR 38.4 ML/MIN Glucose 98 (74-106) mg/dL Calcium 9.1 (8.4-10.2) mg/dL Magnesium 2.1 (1.6-2.3) mg/dL Total Bilirubin 0.70 (0.2-1.3) mg/dL AST 20 (14-36) U/L ALT 13 (0-35) U/L Alkaline Phosphatase 123 (38-126) U/L Troponin I 0.124 H* (0.000-0.034) ng/mL NT-Pro-B Natriuret Pep 7930 H (0-900) pg/mL Serum Total Protein 7.4 (6.3-8.2) g/dL Albumin 4.0 (3.5-5.0) g/dL Urine Color (YELLOW) Urine Appearance (CLEAR) Urine pH (5-6) Ur Specific [place] (1.005-1.025) Urine Protein (Negative) Urine Ketones (NEGATIVE) Urine Blood (0-5) Shin/ul Urine Nitrite (NEGATIVE) Urine Bilirubin (NEGATIVE) Urine Urobilinogen (0-1) mg/dL Ur Leukocyte Esterase (NEGATIVE) Urine WBC (Auto) (0-5) /HPF Urine RBC (Auto) (0-2) /HPF U Epithel Cells (Auto) (FEW) /HPF Urine Bacteria (Auto) (NEGATIVE) /HPF Urine Mucus (Auto) (NEGATIVE) /HPF Urine Culture Reflexed (NO) Urine Glucose (NEGATIVE) mg/dL Influenza Type A Ag (NEGATIVE) Influenza Type B Ag (NEGATIVE) RSV (PCR) (Negative) 09/19/19 09/19/19 09/19/19 Range/Units 12:12 12:00 11:42 WBC 12.8 H (4.0-10.5) K/mm3 RBC 3.96 L (4.1-5.4) M/mm3 Hgb 11.6 L (12.0-16.0) gm/dl Hct 37.2 (35-47) % MCV 93.9 (78-100) fl MCH 29.3 (26-32) pg MCHC 31.2 L (32-36) g/dl RDW 15.9 H (11.5-14.0) % Plt Count 206 (150-450) K/mm3 MPV 11.6 H (7.5-11.0) fl Gran % 75.8 H (36.0-66.0) % Eos # (Auto) 0.32 (0-0.5) Absolute Lymphs (auto) 2.19 (1.0-4.6) Absolute Monos (auto) 0.56 (0.0-1.3) Lymphocytes % 17.1 L (24.0-44.0) % Monocytes % 4.4 (0.0-12.0) % Eosinophils % 2.5 (0.00-5.0) % Basophils % 0.2 (0.0-0.4) % Absolute Granulocytes 9.67 H (1.4-6.9) Basophils # 0.03 (0-0.4) PT (9.95-12.35) SECONDS INR (0.8-3.0) APTT (25.3-37.0) SECONDS Puncture Site RIGHT RADIAL pCO2 32 L (35-45) mmHg pO2 82 (75-100) mmHg Base Excess -0.3 (-2.0-2.0) O2 Saturation 95.7 (94-100) g/dF ABG pH 7.46 H (7.35-7.45) ABG HCO3 22.8 (22-28) ABG O2 Sat (Measured) 97.9 (95-100) % Jos Test YES A-a Gradient 78 a/A Ratio 0.51 Hemoglobin 12.4 Carboxyhemoglobin 1.6 (0.0-6.9) % THgb Methemoglobin 0.5 L (1.4-1.5) % Potassium 4.1 (3.5-5.1) Temperature 37.0 C POC O2 Flow Rate 28 % Vent Mode Inspiratory BiPAP Expiratory BiPAP Sodium (137-145) mmol/L Chloride (98-107) mmol/L Carbon Dioxide (22-30) mmol/L Anion Gap (5-15) MEQ/L BUN (7-17) mg/dL Creatinine (0.52-1.04) mg/dL Estimated GFR ML/MIN Glucose (74-106) mg/dL Calcium (8.4-10.2) mg/dL Magnesium (1.6-2.3) mg/dL Total Bilirubin (0.2-1.3) mg/dL AST (14-36) U/L ALT (0-35) U/L Alkaline Phosphatase (38-126) U/L Troponin I (0.000-0.034) ng/mL NT-Pro-B Natriuret Pep (0-900) pg/mL Serum Total Protein (6.3-8.2) g/dL Albumin (3.5-5.0) g/dL Urine Color (YELLOW) Urine Appearance (CLEAR) Urine pH (5-6) Ur Specific [place] (1.005-1.025) Urine Protein (Negative) Urine Ketones (NEGATIVE) Urine Blood (0-5) Shin/ul Urine Nitrite (NEGATIVE) Urine Bilirubin (NEGATIVE) Urine Urobilinogen (0-1) mg/dL Ur Leukocyte Esterase (NEGATIVE) Urine WBC (Auto) (0-5) /HPF Urine RBC (Auto) (0-2) /HPF U Epithel Cells (Auto) (FEW) /HPF Urine Bacteria (Auto) (NEGATIVE) /HPF Urine Mucus (Auto) (NEGATIVE) /HPF Urine Culture Reflexed (NO) Urine Glucose (NEGATIVE) mg/dL Influenza Type A Ag NEGATIVE (NEGATIVE) Influenza Type B Ag NEGATIVE (NEGATIVE) RSV (PCR) NEGATIVE (Negative) - Progress Progress: improved Air Movement: fair Progress Note: 09/19/19 16:00 Patient had aspirin this morning. Case discussed with patient's rigger helper who states that patient recently had a catheterization procedure performed. Patient coronary arteries are relatively clear. The cause of her elevated troponin is likely congestive heart failure. Lasix and nitroglycerin administered. Patient feels much better. BiPAP improved her status. Case discussed with Dr. Talavera who accepts admission to observation. Blood Culture(s) Obtained: Yes Antibiotics given: No Discussed with : Imani Will see patient in: hospital (observation) Counseled pt/family regarding: lab results, diagnosis, rad results - Departure Departure Disposition: Home Clinical Impression: CHF (congestive heart failure), Troponin level elevated, Elevated brain natriuretic peptide (BNP) level, Pitting edema Condition: Stable Critical Care Time: Yes Critical Care Time(excluding separately billable procedures): Critical 75-104 mins Referrals: MARIA EUGENIA TALAVERA MD [Primary Care Provider] - Instructions: Heart Failure
[2019-09-19 11:46] LABS: A-aADO2 78; ABG HEMOGLOBIN 12.4; ABG POTASSIUM 4.1 (3.5-5.1); ABG SITE RIGHT RADIAL; ALLEN TEST OK? YES; ARTERIAL BLD GAS O2 SATURATION 97.9 % (95-100); ARTERIAL BLOOD GAS BASE EXCESS -0.3 (-2.0-2.0); ARTERIAL BLOOD GAS FIO2 28 %; ARTERIAL BLOOD GAS PCO2 32 mmHg (35-45); ARTERIAL BLOOD GAS PO2 82 mmHg (75-100); ARTERIAL BLOOD GAS pH 7.46 (7.35-7.45); CARBOXYHEMOGLOBIN 1.6 % THgb (0.0-6.9); HCO3- 22.8 (22-28); HGB O2 SAT 95.7 g/dF (94-100); Methhemoglobin 0.5 % (1.4-1.5); paO2 pAO1 0.51
[2019-09-19] MEDS ORDERED: solu-MEDROL 125 MG ONE (11:59)
[2019-09-19 12:30] LABS: Absolute Neutrophil Ct (ANC) 9.67 (1.4-6.9); BASOPHIL % 0.2 % (0.0-0.4); Basophil (Absolute #) 0.03 (0-0.4); Eosinophil % 2.5 % (0.00-5.0); Eosinophil (Absolute #) 0.32 (0-0.5); Hematocrit 37.2 % (35-47); Hemoglobin 11.6 gm/dl (12.0-16.0); Lymphocyte (Absolute #) 2.19 (1.0-4.6); Lymphocytes % 17.1 % (24.0-44.0); Mean Cell Volume 93.9 fl (78-100); Mean Corpuscular Hemoglobin 29.3 pg (26-32); Mean Corpuscular Hgb Concent. 31.2 g/dl (32-36); Mean Platelet Volume 11.6 fl (7.5-11.0); Monocyte (Absolute #) 0.56 (0.0-1.3); Monocytes % 4.4 % (0.0-12.0); Neutrophil % 75.8 % (36.0-66.0); Platelet Count 206 K/mm3 (150-450); Red Blood Count 3.96 M/mm3 (4.1-5.4); Red Cell Distribution Width 15.9 % (11.5-14.0); White Blood Count 12.8 K/mm3 (4.0-10.5)
[2019-09-19 12:40] LABS: INFLUENZA A NEGATIVE (NEGATIVE); INFLUENZA B NEGATIVE (NEGATIVE); RESPIRATORY SYNCTIAL VIRUS NEGATIVE (Negative)
[2019-09-19 12:45] LABS: INR 1.4 (0.8-3.0); PROTIME 15.9 SECONDS (9.95-12.35)
[2019-09-19 12:48] LABS: PTT 95.1 SECONDS (25.3-37.0)
--- NOTE | 2019-09-19 12:57 | XRAY ---
Indication: Short of breath. Weakness. Comparison: September 03, 2019. Portable chest is limited due to patient's large abdomen obscuring both lung bases and partially obscuring cardiac silhouette. Visualized heart and upper lungs unremarkable. Bony thorax intact.
[2019-09-19 12:59] LABS: BILIRUBIN,TOTAL 0.7 mg/dL (0.2-1.3); Calcium 9.1 mg/dL (8.4-10.2); Creatinine 1 1.48 mg/dL (0.52-1.04); MAGNESIUM 2.1 mg/dL (1.6-2.3); Total Protein 7.4 g/dL (6.3-8.2)
[2019-09-19] MEDS ORDERED: MORPHINE SULFATE 2 MG INJ IV ONE (13:08)
[2019-09-19] MEDS ORDERED: Lasix 40 MG/4 ML IV ONE (13:09)
[2019-09-19] MEDS ORDERED: MORPHINE SULFATE 2 MG INJ ONE (13:28)
[2019-09-19] MEDS ORDERED: Lasix 40 MG/4 ML ONE (13:29)
[2019-09-19] MEDS ORDERED: NITRO-BID 2% UD PACKETS ONE (13:39)
[2019-09-19] MEDS ORDERED: Ntg 0.2MG/Ml in D5W GLASS*** 250 ML IV PRN (13:40)
[2019-09-19] MEDS ORDERED: NITRO-BID 2% UD PACKETS TOP ONE (14:33)
[2019-09-19 14:45] LABS: A-aADO2 282; ABG POTASSIUM 4.1 (3.5-5.1); ARTERIAL BLD GAS O2 SATURATION 99.7 % (95-100); ARTERIAL BLOOD GAS BASE EXCESS -4.2 (-2.0-2.0); ARTERIAL BLOOD GAS FIO2 100 %; ARTERIAL BLOOD GAS PCO2 38 mmHg (35-45); ARTERIAL BLOOD GAS PO2 384 mmHg (75-100); ARTERIAL BLOOD GAS VENT MODE BiPAP; ARTERIAL BLOOD GAS pH 7.35 (7.35-7.45); CARBOXYHEMOGLOBIN 1.1 % THgb (0.0-6.9); HGB O2 SAT 97.6 g/dF (94-100); paO2 pAO1 0.58
[2019-09-19 14:46] LABS: ABG SITE RIGHT RADIAL; ALLEN TEST OK? YES
[2019-09-19 15:00] LABS: Appearance CLEAR (CLEAR); Bilirubin NEGATIVE (NEGATIVE); Blood NEGATIVE Ery/ul (0-5); Glucose NEGATIVE (NEGATIVE); Ketones NEGATIVE (NEGATIVE); Leukocyte Esterase NEGATIVE (NEGATIVE); Mucus SLIGHT /HPF (NEGATIVE); Nitrite NEGATIVE (NEGATIVE); Protein,Urine Dip 100 (Negative); Specific Gravity 1.012 (1.005-1.025); Urobilinogen NEGATIVE mg/dL (0-1)
[2019-09-19] MEDS ORDERED: Sodium Chloride 0.9% 1000 ML 1,000 ML ONE (15:15)
[2019-09-19] MEDS ORDERED: Sodium Chloride 0.9% 1000 ML 1,000 ML IV SCH (16:00)
[2019-09-19] MEDS ORDERED: Nitrostat 0.4 MG Tablet SL PRN (17:21)
[2019-09-19] MEDS ORDERED: MEDICATION INTERVENTION PO SCH ×2 (17:45)
[2019-09-19] MEDS ORDERED: TYLENOL 325 MG PO PRN (18:14)
[2019-09-19] MEDS ORDERED: TYLENOL 325 MG ONE (18:15)
[2019-09-19] MEDS ORDERED: Mirapex 0.5 MG Tablet ONE (19:42)
[2019-09-19] MEDS ORDERED: Coreg 3.125 MG ONE (19:45)
[2019-09-19 21:36] VITALS: BP 150/80; PULSE 111; O2SAT 96
[2019-09-19] MEDS ORDERED: Mirapex 0.5 MG Tablet PO SCH (22:00)
[2019-09-19] MEDS ORDERED: Coreg 3.125 MG PO SCH (22:00)
[2019-09-19] MEDS ORDERED: NON-FORMULARY ITEM (Pramipexole Di-Hcl [Mirapex] 1 MG) PO SCH (22:00)
[2019-09-19] MEDS ORDERED: ENOXAPARIN SODIUM SQ SCH (22:00)
[2019-09-19] MEDS ORDERED: Neurontin 400 MG PO SCH (22:00)
[2019-09-19] MEDS ORDERED: ZOCOR 20MG PO SCH (22:00)
[2019-09-20] MEDS ORDERED: ZYLOPRIM 100 MG PO SCH (10:00)
[2019-09-20] MEDS ORDERED: Imdur 30 MG PO SCH (10:00)
[2019-09-20] MEDS ORDERED: NON-FORMULARY ITEM (Cholecalciferol (Vitamin D3) [Vitamin D3] 1,000 UNIT) PO SCH (10:00)
[2019-09-20] MEDS ORDERED: ECOTRIN 81 MG PO SCH (10:00)
[2019-09-20] MEDS ORDERED: VITAMIN D PO SCH (10:00)
[2019-09-20] MEDS ORDERED: BUMEX 1 MG PO SCH (10:00)
[2019-09-20] MEDS ORDERED: Coumadin 5 MG PO SCH (10:00)
[2019-09-20] MEDS ORDERED: Protonix 40MG Tablet PO SCH (10:00)
--- NOTE | 2019-09-27 11:03 | PCM.DS ---
Discharge Summary Date of Admission: 09/19/19 16:00 Date of Discharge: 09/19/2019 Admitting Physician: MARIA EUGENIA GIRARD MD Consults: Dr Farias who was on the call financial sales manager for [employer] and Dr Villarreal had been contacted by ER physician Primary Care Provider: MARIA EUGENIA GIRARD MD Allergies Allergies amoxicillin Allergy (Verified 09/24/19 22:40) unknown reaction oxytetracycline [From Terramycin] Allergy (Verified 09/24/19 22:40) oxytetracycline HCl [From Terramycin] Allergy (Verified 09/24/19 22:40) unknown reaction Penicillins Allergy (Verified 09/24/19 22:40) unknown reaction Hospital Summary - Hospital Course Hospital Course: 58 yr old female with multiple medical problems presented to ER earlier in the day with complaints of SOB.As noted from ER physician: Patient had aspirin this morning. Case discussed with patient's financial sales manager Dr Villarreal who states that patient recently had a catheterization procedure performed. Patient's coronary arteries are relatively clear. The cause of her elevated troponin is likely congestive heart failure. Lasix and nitroglycerin administered. Patient feels much better. BiPAP improved her status. Case discussed with Dr. Girard who accepts admission to observation. Following admission to ICU I was notified by nurse that patient was reporting 4/ 10 chest pain. Patient reports she stated this in the ER. I called to clarify with Dr Kumar who stated patient was not complaining of chest while in ER and that she was given morphine for headache and nitro for chf exacerbation. Patient 's coumadin had been held for a CV procedure that was supposed to be perfomed tomorrow, however due to her acute SOB presentation this was cancelled by the financial sales manager. Patient was given tylenol for her chest pain as I did not feel that morphine was necessary at this time. Patient still had nitro paste from ER as well. Patient's pain improved with tylenol. Nurse notified me around 7-8pm that patient had a significantly elevated trop. I instructed her to call the cardiologists for this patient as they had been consulted from ER. Cardiology recommended transfer to [facility]. [facility]. Nurse called to inform me that the patient then started having EKG changes including trigemeny but still no ST seg changes. She also reported that Dr Farias was concerned about possible PE due to the held coumadin. - Vitals & Intake/Output Vital Signs: Vital Signs Temperature 98.6 F 09/19/19 20:00 Pulse Rate 111 H 09/19/19 20:00 Respiratory Rate 28 H 09/19/19 20:00 Blood Pressure 150/80 09/19/19 20:00 O2 Sat by Pulse Oximetry 96 09/19/19 20:00 - Lab Result Diagrams: 09/19/19 12:12 09/19/19 12:12 Micro Results-Entire Visit: Microbiology 09/19/19 12:20 Blood Culture Gram Stain - Final Blood Not Reportable Blood Culture - Final NO GROWTH 09/19/19 12:12 Blood Culture Gram Stain - Final Blood Not Reportable Blood Culture - Final NO GROWTH - Procedures and Test Procedures and Tests throughout Hospitalization: Therapy Orders & Screens 09/19/19 11:58 Respiratory Therapy Assessment DAILY Comment: 09/19/19 13:41 BiPap/CPAP STAT Comment: 09/19/19 16:09 Oxygen NASAL CANNULA 2 lpm Comment: Diagnosis: CHF 09/19/19 18:00 RT Screen per Nursing Assess ONCE Comment: Protocol Order Physician Instructions: Greater than 3 points order RT Admission Screen Reason For Exam: Triggered on Admission Diagnosis: CHF elevated troponin, elivated BNP Diagnosis: CHF elevated troponin, elivated BNP Pneumonia: No Home O2: No Asthma: No CHF: Yes Home CPAP/BIPAP: Yes Home Nebs/MDI: No Total Points: 8 Smoking Cessation Education ONCE Comment: Diagnosis: CHF elevated troponin, elivated BNP Smoking Status: Current some day smoker How long have you smoked: years Have you smoked in the past 12 months: Yes Approximately how many cigarettes per day: 0.5PPD Do you dip or chew tobacco: No If,Former Smoker,when did you quit: 1.5 years Discharge Exam General Appearance: other (Please refer to the ER Dr and Nurse notes for documenation in regards to patient's ROS and Physical exam as I did not personally see the patient prior to DC.) Final Diagnosis/Problem List - Final Discharge Diagnosis/Problem (1) Acute respiratory distress Status: Acute Assessment & Plan: Patient was acutely short of breath and required bipap in ER. This is likely multifactorial as patient has numerous comorbidities. She appeared to have improved based on ER documentation. Code(s): R06.03 - ACUTE RESPIRATORY DISTRESS (2) CHF (congestive heart failure) Status: Acute Assessment & Plan: Patient's BNP was elevated. Acute on chronic chf exacerbation. Patient was started on lasix in ER and her symptoms started improving. Code(s): I50.9 - HEART FAILURE, UNSPECIFIED (3) Chest pain Status: Acute Assessment & Plan: Unsure when pain started as nurse reports patient stated she had chest pain in ER but ER doctor reported patient was not reporting chest pain and that he would not have tried to admit her to our hospital if she was having chest. Patient was on her routine home meds except for coumadin. She was temporarily on lovenox till her CV procedure which was supposed to take place tomorrow. Patient was given morphine in ER and tylenol during her admission for pain. Case was discussed with Dr Farias and it was felt that with elevated trop and chest pain that patient would benefit from a hospital that is CV capable. Code(s): R07.9 - CHEST PAIN, UNSPECIFIED (4) Elevated brain natriuretic peptide (BNP) level Status: Acute Assessment & Plan: CHF exacerbation. Please see plan above Code(s): R79.89 - OTHER SPECIFIED ABNORMAL FINDINGS OF BLOOD CHEMISTRY (5) Elevated troponin I level Status: Acute Assessment & Plan: Patient had elevated troponins with normal ekg and recent neg cardiac cath. Patient also has CKD. With the trop trending up patient was sent to [facility] and tx if needed. Code(s): R79.89 - OTHER SPECIFIED ABNORMAL FINDINGS OF BLOOD CHEMISTRY (6) Essential hypertension Status: Acute Assessment & Plan: Resumed routine home meds. Code(s): I10 - ESSENTIAL (PRIMARY) HYPERTENSION - Discharge Disposition: [facility] Condition: Stable Prescriptions: No Action Bumetanide 2 mg PO DAILY calcitrioL [Calcitriol] 0.25 mcg PO DAILY Warfarin Sodium 5 mg [Coumadin 5 MG] 5 mg PO DAILY Cholecalciferol (Vitamin D3) [Vitamin D3] 1,000 unit PO DAILY Isosorbide Mononitrate [Isosorbide Mononitrate ER] 30 mg PO DAILY Rosuvastatin Calcium 20 mg PO HS Pramipexole Di-HCl [Mirapex] 1 mg PO BID PANTOPRAZOLE 40 mg Tablet [Protonix 40MG Tablet] 40 mg PO QAM Gabapentin 400 mg PO TID Carvedilol 3.125 mg [Coreg 3.125 MG] 3.125 mg PO BID Nitroglycerin 0.4 mg Tablet [Nitrostat 0.4 MG Tablet] 0.4 mg SL Q5MIN PRN MR X 3 PRN PRN Reason: angina buPROPion HCl [Bupropion HCl Sr] 200 mg PO BID Cyclobenzaprine HCl 10 mg [Cyclobenzaprine 10 MG] 10 mg PO TID Allopurinol 100 mg [Zyloprim 100 mg] 100 mg PO DAILY Enoxaparin Sodium 80 mg SPINAL Q12H Aspirin [Aspirin EC] 1 tab PO DAILY Follow up with: MARIA EUGENIA GIRARD MD [Primary Care Provider] - 1 Week Forms: Ambulance Transport Record, Transfer Record [facility]Agency
== END 2019-09-19 22:50 | disposition short-term general hospital (02) ==
LOC: ED 11:22 → ICU 16:00
PROVIDERS: ADMIT Family Medicine; ATTEND Family Medicine
DX: R06.03 Acute respiratory distress (principal); I11.0 Hypertensive heart disease with heart failure; I50.9 Heart failure, unspecified; R07.9 Chest pain, unspecified; R79.89 Other specified abnormal findings of blood chemistry; Z79.2 Long term (current) use of antibiotics; Z79.899 Other long term (current) drug therapy
CPT/HCPCS: 36000; 36415; 36600; 51702; 71045; 80053; 81001; 82375; 82803; 83735; 83880; 84484; 85025; 85610; 85730; 87040; 87631; 93005; 93041; 94002; 94640; 96374; 96375; 99285; G0378; J1650; J1940; J2270; J2930; A9270-GY

== ENCOUNTER 2019-09-24 22:19 | Emergency (ER) | payer MEDICARE ==
--- NOTE | 2019-09-24 22:32 | ERPHSYRPT ---
- History of Present Illness Time Seen by Provider: 09/24/19 22:32 Source: patient, family Exam Limitations: no limitations Physician History: This is a morbidly obese noncompliant white female who has history of COPD, chronic kidney disease, coronary artery disease, hypertension, anxiety, depression and congestive heart failure who presents to the emergency department with acute respiratory distress. Patient was admitted to [facility] on 09/19/2019 and discharged on 09/22/2019. Patient 's family states the patient continues to smoke and is noncompliant. Patient symptoms of shortness of breath were worsening today. Patient underwent venous Doppler of her lower extremities which were negative for any deep venous thromboses while at [facility]. A VQ scan was also performed during that hospitalization and it was negative for pulmonary emboli. Patient was discharged with a diagnosis of a non-ST elevated myocardial infarction and patient was placed on aspirin Lovenox carvedilol, statin and Imdur. Patient's housekeeping room inspector is Dr. Villarreal. Timing/Duration: today Activities at Onset: none Severity of Dyspnea-Max: moderate Severity of Dyspnea-Current: moderate Possible Cause: frequent episodes Modifying Factors: Improves With: activity Associated Symptoms: anxiety, cough Allergies/Adverse Reactions: amoxicillin Allergy (Verified 09/24/19 22:40) unknown reaction oxytetracycline [From Terramycin] Allergy (Verified 09/24/19 22:40) oxytetracycline HCl [From Terramycin] Allergy (Verified 09/24/19 22:40) unknown reaction Penicillins Allergy (Verified 09/24/19 22:40) unknown reaction Home Medications: Bumetanide 2 mg PO DAILY 05/11/19 [History] Carvedilol 3.125 mg [Coreg 3.125 MG] 3.125 mg PO BID 05/11/19 [History] Cholecalciferol (Vitamin D3) [Vitamin D3] 1,000 unit PO DAILY 05/11/19 [History] Gabapentin 400 mg PO TID 05/11/19 [History] Isosorbide Mononitrate [Isosorbide Mononitrate ER] 30 mg PO DAILY 05/11/19 [ History] Nitroglycerin 0.4 mg Tablet [Nitrostat 0.4 MG Tablet] 0.4 mg SL Q5MIN PRN MR X 3 PRN 05/11/19 [History] PANTOPRAZOLE 40 mg Tablet [Protonix 40MG Tablet] 40 mg PO QAM 05/11/19 [ History] Pramipexole Di-HCl [Mirapex] 1 mg PO BID 05/11/19 [History] Rosuvastatin Calcium 20 mg PO HS 05/11/19 [History] Warfarin Sodium 5 mg [Coumadin 5 MG] 5 mg PO DAILY 05/11/19 [History] calcitrioL [Calcitriol] 0.25 mcg PO DAILY 05/11/19 [History] Allopurinol 100 mg [Zyloprim 100 mg] 100 mg PO DAILY 07/12/19 [History] Cyclobenzaprine HCl 10 mg [Cyclobenzaprine 10 MG] 10 mg PO TID 07/12/19 [ History] buPROPion HCl [Bupropion HCl Sr] 200 mg PO BID 07/12/19 [History] Aspirin [Aspirin EC] 1 tab PO DAILY 09/19/19 [History] Enoxaparin Sodium 80 mg SPINAL Q12H 09/19/19 [History] Hx Tetanus, Diphtheria Vaccination/Date Given: No Hx Influenza Vaccination/Date Given: No Hx Pneumococcal Vaccination/Date Given: Yes - Review of Systems Constitutional: No Symptoms Eyes: No Symptoms Ears, Nose, & Throat: No Symptoms Respiratory: Cough, Dyspnea Cardiac: No Symptoms Abdominal/Gastrointestinal: No Symptoms Genitourinary Symptoms: No Symptoms Musculoskeletal: No Symptoms Skin: No Symptoms Neurological: No Symptoms Psychological: Anxiety Endocrine: No Symptoms Hematologic/Lymphatic: No Symptoms Immunological/Allergic: No Symptoms All Other Systems: Reviewed and Negative - Past Medical History Pertinent Past Medical History: Yes Neurological History: Stroke, TIA ENT History: No Pertinent History Cardiac History: Aneurysm, Congestive Heart Failure, Hypertension, Myocardial Infarction ([place]) Respiratory History: CHF, Pneumonia Endocrine Medical History: No Pertinent History Musculoskeletal History: Osteoporosis GI Medical History: GERD History: No Pertinent History Psycho-Social History: Anxiety, Depression Female Reproductive Disorders: Endometriosis Other Medical History: LUPUS ANTICOAGULANT DISORDER, MORBID OBESITY, GOUT, ANXIETY, DEPRESSION, VENTRICULAR ARRHYTHMIA, CKD STAGE 4, OSTEOPOROSIS, HYPERGLYCEMIA, FRACTURE PATELLA 2015 - Past Surgical History Past Surgical History: Yes Neuro Surgical History: No Pertinent History Cardiac: Cardiac Stent Respiratory: No Pertinent History Gastrointestinal: No Pertinent History Genitourinary: No Pertinent History Musculoskeletal: No Pertinent History Female Surgical History: Hysterectomy Other Surgical History: CARPAL TUNNEL-RIGHT WRIST, RIGHT FOOT - Social History Smoking Status: Current some day smoker How long have you smoked: years Exposure to second hand smoke: No Drug Use: marijuana Patient Lives Alone: Yes - Nursing Vital Signs Nursing Vital Signs: Initial Vital Signs Temperature 98.6 F 09/24/19 22:25 Pulse Rate 115 H 09/24/19 22:25 Respiratory Rate 40 H 09/24/19 22:25 Blood Pressure 163/94 09/24/19 22:25 O2 Sat by Pulse Oximetry 91 L 09/24/19 22:25 Pain Scale Pain Intensity 5 - Physical Exam General Appearance: moderate distress, alert, anxiety, obese Eye Exam: PERRL/EOMI, eyes nml inspection Ears, Nose, Throat Exam: hearing grossly normal, normal pharynx Neck Exam: normal inspection, non-tender, supple, full range of motion Respiratory Exam: airway intact, wheezing, No chest tenderness, No respiratory distress Cardiovascular/Chest Exam: tachycardia Abdominal/Gastrointestinal Exam: soft, normal bowel sounds, No tenderness Rectal Exam: not done Extremity Exam: non-tender, normal range of motion, pedal edema (Bilateral feet and ankles) Neurologic Exam: alert, oriented x 3, cooperative, muleser II-XII nml as tested Skin Exam: normal color, warm, dry Lymphatic Exam: No adenopathy SpO2 Interpretation: borderline oxygenation O2 Delivery: Room Air - Course Nursing assessment & vital signs reviewed: Yes EKG Interpreted by Me: RATE ([id number]), Sinus Tach, Left [place] Deviation, NORMAL INTERVALS, NORMAL QRS Ordered Tests: Active Orders 24 hr Category Date Time Status Station Installation Supervisor STAT Care 09/24/19 22:39 Active EKG-ER Only STAT Care 09/24/19 22:38 Active Dow [Catheter-[place] Dow] STAT Care 09/25/19 00:20 Active IV Insertion STAT Care 09/24/19 22:38 Active Oxygen-ED Only Nasal Cannula 2 lpm Care 09/24/19 22:38 Active CHEST 1 VIEW (PORTABLE) Stat Exams 09/24/19 22:39 Taken ARTERIAL BLOOD GASES Stat Lab 09/24/19 22:38 Completed BLOOD CULTURE Stat Lab 09/24/19 23:00 Received CBC W DIFF Stat Lab 09/24/19 23:00 Completed CMP Stat Lab 09/24/19 23:00 Completed Lactic Acid Stat Lab 09/24/19 22:38 Completed NT PRO BNP Stat Lab 09/24/19 23:00 Completed PROTIME WITH INR Stat Lab 09/24/19 23:00 Completed TROPONIN Q3H Lab 09/24/19 23:00 Completed TROPONIN Q3H Lab 09/25/19 01:45 Ordered TROPONIN Q3H Lab 09/25/19 04:45 Ordered TROPONIN Q3H Lab 09/25/19 07:45 Ordered TROPONIN Q3H Lab 09/25/19 10:45 Ordered Medication Summary Discontinued Medications Generic Name Dose Route Start Last Admin Trade Name Freq PRN Reason Stop Dose Admin Bumetanide 2 mg 09/24/19 23:38 09/24/19 23:47 Bumex 1 Mg IV 09/24/19 23:39 2 mg STAT STA Administration Bumetanide Confirm 09/24/19 23:46 Bumex 1 Mg Administered 09/24/19 23:47 Dose 2 mg .ROUTE .[facility] Lab/Rad Data: Laboratory Result Diagrams 09/24/19 23:00 09/24/19 23:00 Laboratory Results 09/24/19 09/24/19 09/24/19 Range/Units 23:20 23:00 23:00 WBC (4.0-10.5) K/mm3 RBC (4.1-5.4) M/mm3 Hgb (12.0-16.0) gm/dl Hct (35-47) % MCV (78-100) fl MCH (26-32) pg MCHC (32-36) g/dl RDW (11.5-14.0) % Plt Count (150-450) K/mm3 MPV (7.5-11.0) fl Gran % (36.0-66.0) % Eos # (Auto) (0-0.5) Absolute Lymphs (auto) (1.0-4.6) Absolute Monos (auto) (0.0-1.3) Lymphocytes % (24.0-44.0) % Monocytes % (0.0-12.0) % Eosinophils % (0.00-5.0) % Basophils % (0.0-0.4) % Absolute Granulocytes (1.4-6.9) Basophils # (0-0.4) PT 16.3 H (9.95-12.35) SECONDS INR 1.43 (0.8-3.0) Puncture Site pCO2 (35-45) mmHg pO2 (75-100) mmHg Base Excess (-2.0-2.0) O2 Saturation (94-100) g/dF ABG pH (7.35-7.45) ABG HCO3 (22-28) ABG O2 Sat (Measured) (95-100) % Jos Test A-a Gradient a/A Ratio Hemoglobin Carboxyhemoglobin (0.0-6.9) % THgb Methemoglobin (1.4-1.5) % Potassium (3.5-5.1) Temperature C POC O2 Flow Rate % Sodium (137-145) mmol/L Chloride (98-107) mmol/L Carbon Dioxide (22-30) mmol/L Anion Gap (5-15) MEQ/L BUN (7-17) mg/dL Creatinine (0.52-1.04) mg/dL Estimated GFR ML/MIN Glucose (74-106) mg/dL Lactic Acid (0.4-2.0) Calcium (8.4-10.2) mg/dL Total Bilirubin (0.2-1.3) mg/dL AST (14-36) U/L ALT (0-35) U/L Alkaline Phosphatase (38-126) U/L Troponin I 0.541 H* (0.000-0.034) ng/mL NT-Pro-B Natriuret Pep (0-900) pg/mL Serum Total Protein (6.3-8.2) g/dL Albumin (3.5-5.0) g/dL Influenza Type A Ag NEGATIVE (NEGATIVE) Influenza Type B Ag NEGATIVE (NEGATIVE) RSV (PCR) NEGATIVE (Negative) 09/24/19 09/24/19 09/24/19 Range/Units 23:00 23:00 22:38 WBC 13.2 H (4.0-10.5) K/mm3 RBC 3.60 L (4.1-5.4) M/mm3 Hgb 10.7 L (12.0-16.0) gm/dl Hct 34.5 L (35-47) % MCV 95.8 (78-100) fl MCH 29.7 (26-32) pg MCHC 31.0 L (32-36) g/dl RDW 16.5 H (11.5-14.0) % Plt Count 117 L (150-450) K/mm3 MPV 12.1 H (7.5-11.0) fl Gran % 76.7 H (36.0-66.0) % Eos # (Auto) 0.54 H (0-0.5) Absolute Lymphs (auto) 1.87 (1.0-4.6) Absolute Monos (auto) 0.63 (0.0-1.3) Lymphocytes % 14.2 L (24.0-44.0) % Monocytes % 4.8 (0.0-12.0) % Eosinophils % 4.1 (0.00-5.0) % Basophils % 0.2 (0.0-0.4) % Absolute Granulocytes 10.09 H (1.4-6.9) Basophils # 0.02 (0-0.4) PT (9.95-12.35) SECONDS INR (0.8-3.0) Puncture Site LEFT RADIAL pCO2 30 L (35-45) mmHg pO2 70 L (75-100) mmHg Base Excess 0.4 (-2.0-2.0) O2 Saturation 93.1 L (94-100) g/dF ABG pH 7.49 H (7.35-7.45) ABG HCO3 22.9 (22-28) ABG O2 Sat (Measured) 96.1 (95-100) % Jos Test yes A-a Gradient 92 a/A Ratio 0.43 Hemoglobin 12.3 Carboxyhemoglobin 2.4 (0.0-6.9) % THgb Methemoglobin 0.7 L (1.4-1.5) % Potassium 4.2 4.3 (3.5-5.1) Temperature 37.0 C POC O2 Flow Rate 28 % Sodium 139 (137-145) mmol/L Chloride 109 H (98-107) mmol/L Carbon Dioxide 22 (22-30) mmol/L Anion Gap 12.5 (5-15) MEQ/L BUN 38 H (7-17) mg/dL Creatinine 1.91 H (0.52-1.04) mg/dL Estimated GFR 28.6 ML/MIN Glucose 135 H (74-106) mg/dL Lactic Acid 0.9 (0.4-2.0) Calcium 8.8 (8.4-10.2) mg/dL Total Bilirubin 0.60 (0.2-1.3) mg/dL AST 31 (14-36) U/L ALT 23 (0-35) U/L Alkaline Phosphatase 100 (38-126) U/L Troponin I (0.000-0.034) ng/mL NT-Pro-B Natriuret Pep 09069 H (0-900) pg/mL Serum Total Protein 7.0 (6.3-8.2) g/dL Albumin 3.8 (3.5-5.0) g/dL Influenza Type A Ag (NEGATIVE) Influenza Type B Ag (NEGATIVE) RSV (PCR) (Negative) - Progress Progress: improved Air Movement: good Progress Note: 09/25/19 00:32 Differential diagnosis: Myocardial infarction, congestive heart failure, pneumonia Medical decision making: This patient is noncompliant, continues to smoke. Within the last 5 days the patient has had a VQ scan which was normal and a negative venous Doppler of her lower extremities. Patient's congestive heart failure has been worsening and her troponin level is increased despite no significant changes in her renal function. Clinically, her symptoms are worsening. She is having more difficulty breathing prior to her arrival here. Upon arrival into the emergency department this evening, the patient was placed on BiPAP which improved her symptoms. I contacted Dr. Nolan who is the emergency room physician at [facility] emergency department. I reviewed the patient's history, condition, EKG, laboratory data and chest x-ray results. He accepts the patient for transfer and admission. 09/25/19 00:38 Blood Culture(s) Obtained: No Antibiotics given: No Counseled pt/family regarding: lab results, diagnosis, need for follow-up, rad results - Departure Departure Disposition: Transfer Clinical Impression: Acute respiratory distress, Congestive heart failure, Elevated troponin Condition: Fair Critical Care Time: Yes Referrals: MARIA EUGENIA GIRARD MD [Primary Care Provider] - Instructions: Heart Failure
[2019-09-24 22:45] LABS: A-aADO2 92; ABG HEMOGLOBIN 12.3; ABG POTASSIUM 4.3 (3.5-5.1); ARTERIAL BLD GAS O2 SATURATION 96.1 % (95-100); ARTERIAL BLOOD GAS BASE EXCESS 0.4 (-2.0-2.0); ARTERIAL BLOOD GAS FIO2 28 %; ARTERIAL BLOOD GAS PCO2 30 mmHg (35-45); ARTERIAL BLOOD GAS PO2 70 mmHg (75-100); ARTERIAL BLOOD GAS pH 7.49 (7.35-7.45); CARBOXYHEMOGLOBIN 2.4 % THgb (0.0-6.9); HCO3- 22.9 (22-28); HGB O2 SAT 93.1 g/dF (94-100); Lactic Acid 0.9 (0.4-2.0); Methhemoglobin 0.7 % (1.4-1.5); paO2 pAO1 0.43
[2019-09-24 22:46] LABS: ABG SITE LEFT RADIAL; ALLEN TEST OK? yes
[2019-09-24 23:17] LABS: Absolute Neutrophil Ct (ANC) 10.09 (1.4-6.9); BASOPHIL % 0.2 % (0.0-0.4); Basophil (Absolute #) 0.02 (0-0.4); Eosinophil % 4.1 % (0.00-5.0); Eosinophil (Absolute #) 0.54 (0-0.5); Hematocrit 34.5 % (35-47); Hemoglobin 10.7 gm/dl (12.0-16.0); INR 1.43 (0.8-3.0); Lymphocyte (Absolute #) 1.87 (1.0-4.6); Lymphocytes % 14.2 % (24.0-44.0); Mean Cell Volume 95.8 fl (78-100); Mean Corpuscular Hemoglobin 29.7 pg (26-32); Mean Platelet Volume 12.1 fl (7.5-11.0); Monocyte (Absolute #) 0.63 (0.0-1.3); Monocytes % 4.8 % (0.0-12.0); Neutrophil % 76.7 % (36.0-66.0); PROTIME 16.3 SECONDS (9.95-12.35); Platelet Count 117 K/mm3 (150-450); Red Cell Distribution Width 16.5 % (11.5-14.0); White Blood Count 13.2 K/mm3 (4.0-10.5)
[2019-09-24 23:31] LABS: ALBUMIN 3.8 g/dL (3.5-5.0); ANION GAP 12.5 MEQ/L (5-15); BILIRUBIN,TOTAL 0.6 mg/dL (0.2-1.3); Calcium 8.8 mg/dL (8.4-10.2); Creatinine 1 1.91 mg/dL (0.52-1.04); Potassium 4.2 mmol/L (3.5-5.1)
[2019-09-24] MEDS ORDERED: BUMEX 1 MG IV STA (23:38)
[2019-09-24] MEDS ORDERED: BUMEX 1 MG ONE (23:46)
[2019-09-24 23:54] LABS: INFLUENZA A NEGATIVE (NEGATIVE); INFLUENZA B NEGATIVE (NEGATIVE); RESPIRATORY SYNCTIAL VIRUS NEGATIVE (Negative)
[2019-09-25 00:11] VITALS: BP 124/81; PULSE 103; O2SAT 97
[2019-09-25] MEDS ORDERED: MORPHINE SULFATE 2 MG INJ IV ONE (00:44)
[2019-09-25] MEDS ORDERED: MORPHINE SULFATE 2 MG INJ ONE (00:45)
--- NOTE | 2019-09-25 08:52 | XRAY ---
Indication: Short of breath. Comparison: September 19, 2019. Portable chest better inflated with chronic bibasilar subsegmental atelectasis/scarring and incidental calcified granulomas. New cardiomegaly without consolidation/large effusion. Remaining chest unremarkable.
== END 2019-09-25 01:10 | disposition short-term general hospital (02) ==
LOC: ED 22:19
DX: R06.03 Acute respiratory distress (principal); I50.9 Heart failure, unspecified; R74.8 Abnormal levels of other serum enzymes; J44.9 Chronic obstructive pulmonary disease, unspecified; N18.9 Chronic kidney disease, unspecified; I12.9 Hypertensive chronic kidney disease with stage 1 through stage 4 chronic kidney disease, or unspecified chronic kidney disease; F41.9 Anxiety disorder, unspecified; F32.9 Major depressive disorder, single episode, unspecified; Z79.01 Long term (current) use of anticoagulants; Z79.899 Other long term (current) drug therapy
CPT/HCPCS: 36000; 36415; 36600; 51702; 71045; 80053; 82375; 82803; 83605; 83880; 84484; 85025; 85610; 87040; 87631; 93005; 93041; 94002; 96374; 96375; 99285; J2270

== ENCOUNTER 2019-10-05 09:24 | Emergency (ER) | payer MEDICARE ==
[2019-10-05] MEDS ORDERED: NORCO 5/325 MG PO ONE (10:04)
--- NOTE | 2019-10-05 10:04 | ERPHSYRPT ---
- History of Present Illness Time Seen by Provider: 10/05/19 09:48 Historian: patient Exam Limitations: no limitations Patient Subjective Stated Complaint: pt reports falling 3-4 days ago, states she landed on her backside. pt also states she struck her head, denies LOC. pt reports pain to the upper chest and increased pain with inspiration and movement. Triage Nursing Assessment: pt is aox3, pupils perrl, ambulated to room with slow , steady gait, pt answers questions appropriately, tearful upon exam, pt afebrile, resps easy and non labored, cap refill < 3 seconds, pt with bruise to the left breast, skin is intact, no obvious injury or deformity noted, pt does have edema to the bilat lower extremities. Physician History: 58 years old female with history of coronary artery disease, congestive heart failure, tobacco abuse, COPD, hypertension, hyperlipidemia presented in the ER with chief complaint of right anterior and posterior chest wall pain for the last 4 days. Patient reports she accidentally fell on her buttock on the floor. It was a ground-level fall and seems like everything above was Giard and she started to have gradually worsening sharp pain moderate to severe intensity. She has taken Tylenol couple of times with no significant relief. Patient reports pain aggravated with movements, palpation, deep breathing, stretching and partial relief with being still. No chest pain on the left. Patient reports her pain is different than heart pains. No difficulty breathing otherwise. Denies any abdominal pain nausea vomiting or diarrhea. Patient is tearful. Timing/Duration: day(s) (4), gradual onset, sudden, worse Quality: sharpness, throbbing Location: back Chest Pain Radiation: no radiation Severity of Pain-Max: moderate Severity of Pain-Current: moderate Modifying Factors: Improves With: breathing, movement, palpation Associated Symptoms: denies symptoms Nitro Today/Relief: no nitro taken today Aspirin Treatment Today: no aspirin today Allergies/Adverse Reactions: amoxicillin Allergy (Verified 10/05/19 09:43) unknown reaction oxytetracycline [From Terramycin] Allergy (Verified 10/05/19 09:43) oxytetracycline HCl [From Terramycin] Allergy (Verified 10/05/19 09:43) unknown reaction Penicillins Allergy (Verified 10/05/19 09:43) unknown reaction Home Medications: Bumetanide 2 mg PO DAILY 05/11/19 [History] Carvedilol 3.125 mg [Coreg 3.125 MG] 3.125 mg PO BID 05/11/19 [History] Cholecalciferol (Vitamin D3) [Vitamin D3] 1,000 unit PO DAILY 05/11/19 [History] Gabapentin 400 mg PO TID 05/11/19 [History] Isosorbide Mononitrate [Isosorbide Mononitrate ER] 30 mg PO DAILY 05/11/19 [ History] Nitroglycerin 0.4 mg Tablet [Nitrostat 0.4 MG Tablet] 0.4 mg SL Q5MIN PRN MR X 3 PRN 05/11/19 [History] PANTOPRAZOLE 40 mg Tablet [Protonix 40MG Tablet] 40 mg PO QAM 05/11/19 [ History] Pramipexole Di-HCl [Mirapex] 1 mg PO BID 05/11/19 [History] Rosuvastatin Calcium 20 mg PO HS 05/11/19 [History] Warfarin Sodium 5 mg [Coumadin 5 MG] 5 mg PO DAILY 05/11/19 [History] calcitrioL [Calcitriol] 0.25 mcg PO DAILY 05/11/19 [History] Allopurinol 100 mg [Zyloprim 100 mg] 100 mg PO DAILY 07/12/19 [History] Cyclobenzaprine HCl 10 mg [Cyclobenzaprine 10 MG] 10 mg PO TID 07/12/19 [ History] buPROPion HCl [Bupropion HCl Sr] 200 mg PO BID 07/12/19 [History] Aspirin [Aspirin EC] 1 tab PO DAILY 09/19/19 [History] Enoxaparin Sodium 80 mg SPINAL Q12H 09/19/19 [History] Hx Tetanus, Diphtheria Vaccination/Date Given: Yes Hx Influenza Vaccination/Date Given: Yes Hx Pneumococcal Vaccination/Date Given: Yes Immunizations Up to Date: Yes Travel Risk - International Travel Have you traveled outside of the country in past 3 weeks: No Have you or anyone close to you been diagnosed with or: No Do your reside in a community with a known COVID-19 case?: No If Yes where:: [facility] - Coronavirus Screening Has patient experienced Coronavirus symptoms: No - Review of Systems Constitutional: No Symptoms Eyes: No Symptoms Ears, Nose, & Throat: No Symptoms Respiratory: No Symptoms Cardiac: Chest Pain Abdominal/Gastrointestinal: No Symptoms Genitourinary Symptoms: No Symptoms Musculoskeletal: Fall, Myalgias Skin: No Symptoms Neurological: No Symptoms Psychological: No Symptoms Endocrine: No Symptoms Hematologic/Lymphatic: No Symptoms Immunological/Allergic: No Symptoms - Past Medical History Pertinent Past Medical History: Yes Neurological History: Stroke, TIA ENT History: No Pertinent History Cardiac History: Aneurysm, Congestive Heart Failure, Hypertension, Myocardial Infarction ([place]) Respiratory History: CHF, Pneumonia Endocrine Medical History: No Pertinent History Musculoskeletal History: Osteoporosis GI Medical History: GERD History: No Pertinent History Psycho-Social History: Anxiety, Depression Female Reproductive Disorders: Endometriosis Other Medical History: LUPUS ANTICOAGULANT DISORDER, MORBID OBESITY, GOUT, ANXIETY, DEPRESSION, VENTRICULAR ARRHYTHMIA, CKD STAGE 4, OSTEOPOROSIS, HYPERGLYCEMIA, FRACTURE PATELLA 2015 - Past Surgical History Past Surgical History: Yes Neuro Surgical History: No Pertinent History Cardiac: Cardiac Stent Respiratory: No Pertinent History Gastrointestinal: No Pertinent History Genitourinary: No Pertinent History Musculoskeletal: No Pertinent History Female Surgical History: Hysterectomy Other Surgical History: CARPAL TUNNEL-RIGHT WRIST, RIGHT FOOT - Social History Smoking Status: Current every day smoker How long have you smoked: years Exposure to second hand smoke: No Drug Use: marijuana Patient Lives Alone: Yes - Female History Hx Now: No - Nursing Vital Signs Nursing Vital Signs: Initial Vital Signs Temperature 97.2 F 10/05/19 09:31 Pulse Rate 100 H 10/05/19 09:31 Respiratory Rate 20 10/05/19 09:31 Blood Pressure 156/88 10/05/19 09:31 O2 Sat by Pulse Oximetry 97 10/05/19 09:31 Pain Scale Pain Intensity 10 - Physical Exam General Appearance: no apparent distress Eye Exam: PERRL/EOMI, eyes nml inspection Ears, Nose, Throat Exam: normal ENT inspection, TMs normal, pharynx normal Neck Exam: normal inspection, non-tender, supple, full range of motion Respiratory Exam: normal breath sounds, chest tenderness (right upper anterior and posterior , no midline tenderness), lungs clear, airway intact Cardiovascular Exam: regular rate/rhythm, normal heart sounds, normal peripheral pulses, edema Back Exam: normal inspection, normal range of motion, No CVA tenderness Extremity Exam: normal inspection Neurologic Exam: alert, oriented x 3, cooperative Skin Exam: normal color SpO2 Interpretation: normal SpO2: 97 O2 Delivery: Room Air Ordered Tests: Active Orders 24 hr Category Date Time Status RIBS UNILATERAL Stat Exams 10/05/19 10:29 Completed Medication Summary Discontinued Medications Generic Name Dose Route Start Last Admin Trade Name Sergey PRN Reason Stop Dose Admin Hydrocodone Bitart/Acetaminophen 1 tab 10/05/19 10:04 10/05/19 10:31 [place] 5/325 Mg PO 10/05/19 10:05 1 tab STAT ONE Administration Hydrocodone Bitart/Acetaminophen Confirm 10/05/19 10:26 [place] 5/325 Mg Administered 10/05/19 10:27 Dose 1 tab .ROUTE .STK-MED ONE - Progress Progress: improved, re-examined Air Movement: good Progress Note: 10/05/19 11:37 58 years old is evaluated for right-sided chest wall pain. She does not have any crepitus but has some tenderness diffusely anterior and posteriorly. X- rays of negative for any fracture ribs or any acute abnormality in the lungs. Patient believes she has a chest wall strain. Recommended taking Tylenol 3-4 times a day regularly and outpatient follow-up with primary care. Discussed signs symptoms of worsening needing return to ER which he seems understanding. Stable for discharge. Blood Culture(s) Obtained: No Antibiotics given: No Counseled pt/family regarding: diagnosis, need for follow-up, rad results, smoking cessation - Departure Departure Disposition: Home Clinical Impression: Strain of chest wall Qualifiers: Encounter type: initial encounter Qualified Code(s): S29.011A - Strain of muscle and tendon of front wall of thorax, initial encounter Condition: Stable Critical Care Time: No Referrals: MARIA EUGENIA GIRARD MD [Primary Care Provider] - Follow Up with PCP/3 days Instructions: Preventing Falls, Muscle Strain (DC) Additional Instructions: Tylenol 500 mg every 6 hours as needed. Follow-up with your primary care physician for reevaluation. Return to ER for any worsening.
[2019-10-05] MEDS ORDERED: NORCO 5/325 MG ONE (10:26)
--- NOTE | 2019-10-05 10:45 | XRAY ---
Indication: Pain following fall 4-5 days ago. Comparison: None 2 views of the right ribs demonstrates moderate right AC degenerative arthropathy, right lung base atelectasis/scarring, pulmonary/hilar calcified granulomas, and cardiomegaly. No other bony, articular, or soft tissue abnormalities.
[2019-10-05 11:44] VITALS: O2SAT 97
[2019-10-05 12:13] VITALS: BP 145/83; PULSE 80
== END 2019-10-05 12:05 | disposition home or self-care (01) ==
LOC: ED 09:24
DX: S29.011A Strain of muscle and tendon of front wall of thorax, initial encounter (principal); W18.30XA Fall on same level, unspecified, initial encounter; Y93.9 Activity, unspecified; I25.10 Atherosclerotic heart disease of native coronary artery without angina pectoris; I50.9 Heart failure, unspecified; Z72.0 Tobacco use; J44.9 Chronic obstructive pulmonary disease, unspecified; I10 Essential (primary) hypertension; E78.5 Hyperlipidemia, unspecified; Z79.01 Long term (current) use of anticoagulants; Z79.899 Other long term (current) drug therapy; R07.9 Chest pain, unspecified
CPT/HCPCS: 71100; 99283; A9270-GY

== ENCOUNTER 2020-03-02 07:23 | Emergency (ER) | payer MEDICARE ==
--- NOTE | 2020-03-02 07:51 | ERPHSYRPT ---
- History of Present Illness Time Seen by Provider: 03/02/20 07:44 Source: patient, EMS Exam Limitations: no limitations Patient Subjective Stated Complaint: pt here for multi falls yesterday, she states she lost her balance, she states her son was home to help get her up, she co pain to chest worse with deep breath, she is unsure if she hit chest on anything Triage Nursing Assessment: arrived per ambualnce pt alert, resp easy, has face mask in place, no bruising or abrasion noted, chest tender to palpate, has dialysis cath to right side of chest, moves all ext well Physician History: The patient is a 5-year-old female with a past medical history significant for lupus in addition to end-stage kidney disease for which she is currently on hemodialysis on Wednesdays and Fridays as well as taking Coumadin for anticoagulation for reasons that are not completely clear other than having a past medical history significant for lupus presents with a chief complaint of chest pain after a fall that occurred last night. Of note, the patient does endorse having a history of multiple falls but is a poor historian. She tells me that she did fall last night and fell on her buttocks and was unable to get off the floor until a friend came and found her and called EMS to have her transported to the emergency department for further evaluation. Her main complaint in the emergency department was midsternal chest pain that increases whenever she bends or twists her torso and is pleuritic and increases upon palpation of her chest wall. She states she is unsure if she hit her chest or impacted in the object during the fall last night. She is not exactly sure why she fell either and cannot tell me if she lost c onsciousness prior to falling. She also complained of left upper quadrant abdominal pain and epigastric pain with tenderness to these regions that occurred after the fall. She endorsed having a full run of dialysis this last Tuesday and is due for dialysis tomorrow. She appears to have a bruise to the left orbital region that appears to be old but she cannot recall how she sustained this injury other than she might of fallen. The pain is a mild to moderate pain that is nonradiating constant. Allergies/Adverse Reactions: amoxicillin Allergy (Verified 03/02/20 07:36) unknown reaction oxytetracycline [From Terramycin] Allergy (Verified 03/02/20 07:36) oxytetracycline HCl [From Terramycin] Allergy (Verified 03/02/20 07:36) unknown reaction Penicillins Allergy (Verified 03/02/20 07:36) unknown reaction Home Medications: Bumetanide 2 mg PO DAILY 05/11/19 [History] Carvedilol 3.125 mg [Coreg 3.125 MG] 3.125 mg PO BID 05/11/19 [History] Cholecalciferol (Vitamin D3) [Vitamin D3] 1,000 unit PO DAILY 05/11/19 [History] Gabapentin 400 mg PO TID 05/11/19 [History] Isosorbide Mononitrate [Isosorbide Mononitrate ER] 30 mg PO DAILY 05/11/19 [History] Nitroglycerin 0.4 mg Tablet [Nitrostat 0.4 MG Tablet] 0.4 mg SL Q5MIN PRN MR X 3 PRN 05/11/19 [History] PANTOPRAZOLE 40 mg Tablet [Protonix 40MG Tablet] 40 mg PO QAM 05/11/19 [History] Pramipexole Di-HCl [Mirapex] 1 mg PO BID 05/11/19 [History] Rosuvastatin Calcium 20 mg PO HS 05/11/19 [History] Warfarin Sodium 5 mg [Coumadin 5 MG] 5 mg PO DAILY 05/11/19 [History] calcitrioL [Calcitriol] 0.25 mcg PO DAILY 05/11/19 [History] Allopurinol 100 mg [Zyloprim 100 mg] 100 mg PO DAILY 07/12/19 [History] Cyclobenzaprine HCl 10 mg [Cyclobenzaprine 10 MG] 10 mg PO TID 07/12/19 [History] buPROPion HCl [Bupropion HCl Sr] 200 mg PO BID 07/12/19 [History] Aspirin [Aspirin EC] 1 tab PO DAILY 09/19/19 [History] Enoxaparin Sodium 80 mg SPINAL Q12H 09/19/19 [History] Hx Tetanus, Diphtheria Vaccination/Date Given: Yes Hx Influenza Vaccination/Date Given: Yes Hx Pneumococcal Vaccination/Date Given: Yes Immunizations Up to Date: Yes Travel Risk - International Travel Have you traveled outside of the country in past 3 weeks: No - Coronavirus Screening Are you exhibiting any of the following symptoms?: No Close contact with a COVID-19 positive Pt in past 14-21 Days: No - Review of Systems Constitutional: No Symptoms Eyes: No Symptoms Ears, Nose, & Throat: No Symptoms Respiratory: Dyspnea Cardiac: Chest Pain Abdominal/Gastrointestinal: Abdominal Pain, No Nausea, No Vomiting Musculoskeletal: Back Pain Skin: No Symptoms Neurological: Headache Psychological: No Symptoms Endocrine: No Symptoms Hematologic/Lymphatic: No Symptoms Immunological/Allergic: No Symptoms All Other Systems: Reviewed and Negative - Past Medical History Pertinent Past Medical History: Yes Neurological History: Stroke, TIA ENT History: No Pertinent History Cardiac History: Aneurysm, Congestive Heart Failure, Hypertension, Myocardial Infarction ([place]) Respiratory History: CHF, Pneumonia Endocrine Medical History: No Pertinent History Musculoskeletal History: Osteoporosis GI Medical History: GERD History: No Pertinent History Psycho-Social History: Anxiety, Depression Female Reproductive Disorders: Endometriosis Other Medical History: LUPUS ANTICOAGULANT DISORDER, MORBID OBESITY, GOUT, ANXIETY, DEPRESSION, VENTRICULAR ARRHYTHMIA, CKD STAGE 4, OSTEOPOROSIS, HYPERGLYCEMIA, FRACTURE PATELLA 2015 - Past Surgical History Past Surgical History: Yes Neuro Surgical History: No Pertinent History Cardiac: Cardiac Stent Respiratory: No Pertinent History Gastrointestinal: No Pertinent History Genitourinary: No Pertinent History Musculoskeletal: No Pertinent History Female Surgical History: Hysterectomy Other Surgical History: CARPAL TUNNEL-RIGHT WRIST, RIGHT FOOT - Social History Smoking Status: Current every day smoker How long have you smoked: years Exposure to second hand smoke: No Drug Use: marijuana Patient Lives Alone: Yes - Female History Hx Last Menstrual Period: psot Hx Now: No - Nursing Vital Signs Nursing Vital Signs: Initial Vital Signs Temperature 97.6 F 03/02/20 07:27 Pulse Rate 94 H 03/02/20 07:27 Respiratory Rate 18 03/02/20 07:27 Blood Pressure 121/77 03/02/20 07:27 O2 Sat by Pulse Oximetry 97 03/02/20 07:27 Pain Scale Pain Intensity 4 - [place] Coma Score Best Eye Response (Jethro): (4) open spontaneously Best Verbal Response (Jethro): (5) oriented Best Motor Response (Jethro): (6) obeys commands Jethro Total: 15 - Physical Exam General Appearance: no apparent distress Head Injury: no evidence of injury Eye Exam: PERRL/EOMI, eyes nml inspection ENT Exam: airway nml Neck Exam: supple, No trachea midline, No normal alignment, No JVD Respiratory/Chest Exam: chest tenderness, normal breath sounds, No respiratory distress Cardiovascular Exam: normal heart sounds, regular rate/rhythm, normal peripheral pulses, other (Tunneled dialysis catheter noted to the right anterior chest wall. No sign of surrounding infection), No murmur, No JVD, No gallop Gastrointestinal Exam: tenderness (LUQ tenderness with no rebound tenderness or guarding ) Genitalia Exam: normal genital exam Rectal Exam: deferred Back Exam: normal inspection, No CVA tenderness Extremity Exam: normal inspection, capillary refill <3 sec, No sensory deficit Neurologic Exam: alert, oriented x 3, cooperative Skin Exam: normal color, warm, dry, No rash, No petechiae, No jaundice SpO2 Interpretation: normal SpO2: 97 O2 Delivery: Room Air - Course Nursing assessment & vital signs reviewed: Yes EKG Interpreted by Me: RATE, Left [place] Deviation, Other (Sinus rhythm, vent rate 80 bpm, probable left atrial enlargement, OH interval 142 ms, QRS duration 101 ms, QT/QTc 416/480 ms, ) - CT Exams Cervical Spine CT Interpretation: Negative Head CT Interpretation: Other (Parietal hematoma) Chest CT Interpretation: Other (No evidence of PE or rib fracture.) Abdomen/Pelvis CT Interpretation: Other (No traumatic injuries noted) Ordered Tests: Active Orders 24 hr Category Date Time Status Ambulate Patient ROUTINE Care 03/02/20 11:00 Completed EKG-ER Only STAT Care 03/02/20 07:53 Completed IV Insertion STAT Care 03/02/20 07:53 Completed NPO (ED) STAT Care 03/02/20 07:53 Completed ABDOMEN AND PELVIS W CONTRAST [CT] Stat Exams 03/02/20 10:15 Completed CERVICAL SPINE WO CONTRAST [CT] Stat Exams 03/02/20 09:59 Completed CHEST WITH CONTRAST [CT] Stat Exams 03/02/20 07:51 Completed HEAD WITHOUT CONTRAST [CT] Stat Exams 03/02/20 09:50 Completed BMP/HFII Stat Lab 03/02/20 09:03 Completed CBC W DIFF Stat Lab 03/02/20 09:03 Completed CK-Creatinine Phosphokinase Stat Lab 03/02/20 09:03 Completed LIPASE Stat Lab 03/02/20 09:03 Completed PROTIME WITH INR Stat Lab 03/02/20 09:03 Completed Transfer Order Routine Transfer 03/02/20 Ordered Medication Summary Discontinued Medications Generic Name Dose Route Start Last Admin Trade Name Sergey PRN Reason Stop Dose Admin Fentanyl Citrate 25 mcg 03/02/20 08:02 03/02/20 09:22 Sublimaze 100 Mcg/2 Ml IV 03/02/20 08:03 25 mcg STAT ONE Administration Fentanyl Citrate Confirm 03/02/20 09:20 Sublimaze 100 Mcg/2 Ml Administered 03/02/20 09:21 Dose 100 mcg .ROUTE .STK-MED ONE Lab/Rad Data: Laboratory Result Diagrams 03/02/20 09:03 03/02/20 09:03 Laboratory Results 03/02/20 03/02/20 03/02/20 Range/Units 09:03 09:03 09:03 WBC 11.3 H (4.0-10.5) K/mm3 RBC 3.53 L (4.1-5.4) M/mm3 Hgb 11.1 L (12.0-16.0) gm/dl Hct 34.4 L (35-47) % MCV 97.5 (78-100) fl MCH 31.4 (26-32) pg MCHC 32.3 (32-36) g/dl RDW 14.4 H (11.5-14.0) % Plt Count 74 L (150-450) K/mm3 MPV 11.7 H (7.5-11.0) fl Gran % 66.5 H (36.0-66.0) % Eos # (Auto) 0.50 (0-0.5) Absolute Lymphs (auto) 2.54 (1.0-4.6) Absolute Monos (auto) 0.71 (0.0-1.3) Lymphocytes % 22.5 L (24.0-44.0) % Monocytes % 6.3 (0.0-12.0) % Eosinophils % 4.4 (0.00-5.0) % Basophils % 0.3 (0.0-0.4) % Absolute Granulocytes 7.52 H (1.4-6.9) Basophils # 0.03 (0-0.4) PT 16.0 H (9.95-12.35) SECONDS INR 1.41 (0.8-3.0) Sodium 135 L (137-145) mmol/L Potassium 4.0 (3.5-5.1) mmol/L Chloride 101 (98-107) mmol/L Carbon Dioxide 25 (22-30) mmol/L Anion Gap 13.7 (5-15) MEQ/L BUN 44 H (7-17) mg/dL Creatinine 3.73 H (0.52-1.04) mg/dL Estimated GFR 13.2 ML/MIN Glucose 105 (74-106) mg/dL Calcium 9.5 (8.4-10.2) mg/dL Total Bilirubin 0.80 (0.2-1.3) mg/dL Direct Bilirubin 0.3 (0.0-0.4) mg/dL AST 29 (14-36) U/L ALT 13 (0-35) U/L Alkaline Phosphatase 94 (38-126) U/L Creatine Kinase 307 H (30-135) U/L Serum Total Protein 7.0 (6.3-8.2) g/dL Albumin 3.7 (3.5-5.0) g/dL Lipase 121 (23-300) U/L Slides for Path Review YES - Progress Progress: improved Progress Note: 03/02/20 08:12 I reviewed the patient's EMR and it appears she had an abdominal ultrasound dated September 2018 that showed hepatosplenomegaly in addition to bilateral renal cyst. The remaining abdominal sonogram was negative, typically with no evidence of AAA. I also noted the patient had a recent hospitalization in September 1999 in which she was admitted for chest pain and cardiology, Dr. Villarreal reported that the patient had a recent cardiac catheterization performed with relatively clear coronaries and that her elevated troponin was likely due to her parentheses congestive heart failure) 03/02/20 08:31 Trying to order a CTA chest abdomen pelvis with contrast. The patient does have CKD and is on dialysis Wednesdays and Fridays and given that PE is on the differential for potential visceral organ damage with active extract given her history of traumatic falls I believe this is warranted and relatively safe to give. However per this institution's protocols they will not allow me to scan this individual with contrast given that her GFR is likely going to be below 50. I have attempted to contact the radiology manager, the ED director in addition to the radiologist himself Darshana nonsuccessful. 03/02/20 08:[address] Baltazar, radiologist at [facility], and discussed the case with him specifically IV contrast in the setting of CKD and HD. He was agreed the patient can get IV contrast if she is on dialysis and due for dialysis tomorrow. Recommended having the patient sign a consent form to receive contrast, which we will have her do. 03/02/20 08:38 The patient's nurse has contracted the patient's dialysis center to confirm the patient did indeed go to dialysis last Tuesday and does have a scheduled dialysis run tomorrow. 03/02/20 08:[address] King, [facility] radiologist, and discussed the case with him. He's ok with the patient getting contrast as well as long as she is scheduled to dialyze tomorrow. 03/02/20 09:13 There is a delay in work-up due to the inability to obtain IV access. Plan had to come down and obtain the patient's left knee and arterial stick. I had to obtain peripheral IV access via an EJ. I was able to successfully place a left EJ with a 20-gauge IV. The site was prepped and cleaned with Shur-Clens and the patient was placed in the Trendelenburg position. This was placed after I unsuccessfully attempted to access the right EJ but the line infiltrated. 03/02/20 09:17 I discussed the patient's medications with her he confirmed that she still taking gabapentin. I believe some of her somnolence in addition to her falls are partly contributed to the fact that this medication can cause you to to become encephalopathic especially in patients that have CKD given that it is renally excreted. Also endorsed that she smokes marijuana from time to time and the nurse noted that the patient had a marijuana pipe in her medication box. 03/02/20 09:58 Patient's labs were reviewed and it appears her BMP is reflective of her known CKD, there is evidence of thrombocytopenia, no significant anemia requiring blood transfusion at this time, and her INR appears to be subtherapeutic. 03/02/20 10:56 CT of her chest and pelvis as well as abdomen showed no acute pathology. CT head showed evidence of a parietal hematoma but otherwise was benign and her cervical spine CT showed no evidence of fracture or dislocation. 03/02/20 11:37 I am attempting to contact Dr. Girard and it appears Dr. Fonatnez is on-call for [facility] at this time. The rivet tapping machine operator will page Dr. Fontanez to call me back in the emergency department so I can discuss the case with him, specifically any changes in the patient's medications, specifically the gabapentin and whether or not the patient should remain on Coumadin given her falls risk and thrombocytopenia. I will also try to arrange outpatient follow-up. 03/02/20 11:[address] Fontanez and discussed the case with him. He agreed the patient should stop her Coumadin given her falls risk. Recommended decreasing her gabapentin to 400 mg bid and will have the patient f/u with [facility] as an outpatient. 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 Counseled pt/family regarding: lab results, diagnosis, need for follow-up, rad results - Departure Departure Disposition: Home Clinical Impression: Chest wall contusion, Hematoma of scalp, Fall, CKD (chronic kidney disease) requiring chronic dialysis Condition: Stable Critical Care Time: No Referrals: MARIA EUGENIA GIRARD MD [Primary Care Provider] - Instructions: Contusion (DC), Preventing Falls Additional Instructions: Please decrease your gabapentin to 400 mg twic a day as this could be contributing to your somnolence in addition to falls. Also please refrain from smoking marijuana if you are able to. Please go to dialysis as scheduled tomorrow morning. Take Tylenol as needed for pain. You can take this medication and purchase it [id number]. Please take this medication as instructed on the medication bottle.
[2020-03-02] MEDS ORDERED: SUBLIMAZE 100 MCG/2 ML IV ONE (08:02)
[2020-03-02 09:05] LABS: Absolute Neutrophil Ct (ANC) 7.52 (1.4-6.9); BASOPHIL % 0.3 % (0.0-0.4); Basophil (Absolute #) 0.03 (0-0.4); Eosinophil % 4.4 % (0.00-5.0); Hematocrit 34.4 % (35-47); Hemoglobin 11.1 gm/dl (12.0-16.0); Lymphocyte (Absolute #) 2.54 (1.0-4.6); Lymphocytes % 22.5 % (24.0-44.0); Mean Cell Volume 97.5 fl (78-100); Mean Corpuscular Hemoglobin 31.4 pg (26-32); Mean Corpuscular Hgb Concent. 32.3 g/dl (32-36); Mean Platelet Volume 11.7 fl (7.5-11.0); Monocyte (Absolute #) 0.71 (0.0-1.3); Monocytes % 6.3 % (0.0-12.0); Neutrophil % 66.5 % (36.0-66.0); Platelet Count 74 K/mm3 (150-450); Red Blood Count 3.53 M/mm3 (4.1-5.4); Red Cell Distribution Width 14.4 % (11.5-14.0); White Blood Count 11.3 K/mm3 (4.0-10.5)
[2020-03-02 09:13] LABS: INR 1.41 (0.8-3.0)
[2020-03-02 09:17] LABS: ALBUMIN 3.7 g/dL (3.5-5.0); ANION GAP 13.7 MEQ/L (5-15); BILIRUBIN,TOTAL 0.8 mg/dL (0.2-1.3); Calcium 9.5 mg/dL (8.4-10.2); Creatinine 1 3.73 mg/dL (0.52-1.04); Direct Bilirubin 0.3 mg/dL (0.0-0.4)
[2020-03-02] MEDS ORDERED: SUBLIMAZE 100 MCG/2 ML ONE (09:20)
[2020-03-02 09:33] LABS: Slide Review 1 YES
[2020-03-02 11:55] VITALS: BP 120/76; PULSE 66
[2020-03-02 12:13] VITALS: O2SAT 97
--- NOTE | 2020-03-02 19:12 | XRAY ---
Indication: Status post fall. Current blood thinner therapy. Multiple contiguous axial images obtained through the head without contrast. Comparison: July 12, 2019. Stable global atrophy, moderate periventricular degenerative micro-ischemia, and high right parietal lobe infarct. Again no acute intracranial hemorrhage, hydrocephalus, or mass effect. Fourth ventricle is midline. New tiny left occipital scalp hematoma. Bony calvarium intact. Visualized paranasal sinuses and mastoid air cells are clear. Impression: New left occipital scalp hematoma without fracture. Stable diffuse senile brain with old right parietal infarct. Comment: Preliminary interpretation was made by [facility]. No critical discrepancy.
--- NOTE | 2020-03-02 19:16 | XRAY ---
Indication: Status post fall. Current blood thinner therapy. Multiple contiguous axial images obtained through the cervical spine. Sagittal and coronal reformatted images obtained. Comparison: July 12, 2019. Axial images again negative for acute fracture, suspicious bony lesions, or spinal canal stenosis. Stable mild multilevel bilateral degenerative facet hypertrophy. Sagittal and coronal reformatted images demonstrates normal alignment with vertebral body heights/disc spaces maintained. Again no acute compression fracture, subluxation, or jumped facet. Normal appearing craniocervical junction. Visualized noncontrasted soft tissues again demonstrates mild carotid calcifications bilaterally and benign chunky right thyroid calcification. New large bore right dialysis catheter. CT head and CT chest reported separately. Impression: 1. Again negative acute fracture/subluxation. 2. Stable multilevel bilateral degenerative facet hypertrophy and benign right thyroid calcification. Comment: Preliminary interpretation was made by [facility]. No critical discrepancy.
--- NOTE | 2020-03-02 19:24 | XRAY ---
Indication: Status post fall. Chest pain. Current blood thinner therapy. Multiple contiguous axial images obtained through the chest using 80 cc Isovue-370 contrast and PE protocol. Comparison:. CT chest without contrast February 16, 2018. There is good opacification of the pulmonary arteries to include the lobar and segmental branches. No pulmonary embolus. Heart is enlarged. Aorta is mildly arteriosclerotic without aneurysm/dissection. Right large bore dialysis catheter. A few small bilateral hilar calcified nodes. No pathologic mediastinal/hilar lymphadenopathy. Lungs demonstrates bilateral dependent atelectasis. Tiny left lower and right lower lobe calcified granuloma. No suspicious pulmonary mass, infiltrate, effusion, or pneumothorax. Bony thorax intact with minimal multilevel degenerative spondylosis, T10 vertebral hemangioma, and T11 Schmorl node. CT abdomen/pelvis reported separately. Impression: 1. Negative pulmonary embolus. 2. Cardiomegaly without CHF. 3. Incidental chronic bony findings, right dialysis catheter, and old granulomatous disease. Comment: Preliminary interpretation was made by [facility]. No critical discrepancy.
--- NOTE | 2020-03-02 19:26 | XRAY ---
Indication: Pain following fall. Current blood thinner therapy. Multiple contiguous axial images obtained through the abdomen and pelvis using 80 cc Isovue 370 contrast. Comparison: February 16, 2018. CT chest reported separately. Noncontrasted stomach and bowel loops remain nonobstructed. No free fluid/air. Both kidneys enhance and excrete with stable bilateral renal cysts. Stable calcified splenic granuloma and hysterectomy. Remaining liver, gallbladder, pancreas, spleen, adrenal glands, kidneys, ureters, and bladder appear unremarkable. There is again moderate scattered aortoiliac calcifications without AAA. Osseous structures intact. Impression: 1. Stable bilateral renal cysts. 2. Remaining CT abdomen/pelvis with contrast the exam is negative. Comment: Preliminary interpretation was made by [facility]. No critical discrepancy.
== END 2020-03-02 13:50 | disposition home or self-care (01) ==
LOC: ED 07:23
DX: S20.219A Contusion of unspecified front wall of thorax, initial encounter (principal); S00.03XA Contusion of scalp, initial encounter; N18.9 Chronic kidney disease, unspecified; Z99.2 Dependence on renal dialysis; Z79.899 Other long term (current) drug therapy; W18.30XA Fall on same level, unspecified, initial encounter
CPT/HCPCS: 36000; 36415; 70450; 71260; 72125; 74177; 80048; 80076; 82550; 83690; 85025; 85610; 93005; 96374; 99284; J3010

== ENCOUNTER 2020-06-15 18:09 | Emergency (ER) | payer MEDICARE ==
[2020-06-15] MEDS ORDERED: MORPHINE SULFATE 4 MG INJ IV ONE (18:19)
[2020-06-15] MEDS ORDERED: Zofran 4 MG/2 ML VIAL IV ONE (18:19)
[2020-06-15] MEDS ORDERED: BABY ASPIRIN 81 MG CHEW PO ONE (18:19)
[2020-06-15] MEDS ORDERED: MORPHINE SULFATE 4 MG INJ ONE (18:26)
[2020-06-15] MEDS ORDERED: Zofran 4 MG/2 ML VIAL ONE (18:26)
[2020-06-15] MEDS ORDERED: MAALOX ES 30 ML UNIT DOSE ONE (18:27)
[2020-06-15] MEDS ORDERED: XYLOCAINE HCl Viscous ONE (18:27)
--- NOTE | 2020-06-15 18:35 | ERPHSYRPT ---
<VANESSA ORTIZ - Last Filed: 06/15/20 18:52> - History of Present Illness Time Seen by Provider: 06/15/20 18:10 Historian: patient Exam Limitations: no limitations Patient Subjective Stated Complaint: Chest pain Triage Nursing Assessment: Patient brought back to ED via w/c and transferred to bed with assist of 2. Patient A+O X3. Patient's skin pink, warm and dry. Patient complains of chest pain that started one hour ago after eating 20 soft peppermints. Patient complains of constant sharp pain in the chest 10/10. Lungs clear a/p maritza. Heart tones audible. Slight swelling noted to BLE. Physician History: 59 years old female with history of hypertension, hyperlipidemia, coronary artery disease status post stenting, congestive heart failure, end-stage renal disease on dialysis three times a week presented in the ER with chief complaint of sudden onset substernal/left-sided chest pain almost an hour prior to arrival after she had 20 soft peppermint. Patient described this as a sharp burning sensation moderate to severe intensity without any significant aggravating or relieving factors. Denies any radiation of pain. Denies associated palpitations or shortness of breath. It started to improve on its own and currently on my evaluation rates 5/10 intensity. Denies any recent fever chills or cough. No sick contact. Last dialysis was 2 days ago. Timing/Duration: hour(s) (1), sudden, worse Activities at Onset: rest Quality: burning, sharpness Location: substernal Chest Pain Radiation: no radiation Severity of Pain-Max: severe Severity of Pain-Current: moderate Modifying Factors: Improves With: nothing Associated Symptoms: denies symptoms, heartburn, No shortness of breath, No cough, No hurts to breathe Nitro Today/Relief: no nitro taken today Aspirin Treatment Today: unknown Allergies/Adverse Reactions: amoxicillin Allergy (Verified 06/15/20 18:39) unknown reaction oxytetracycline [From Terramycin] Allergy (Verified 06/15/20 18:39) oxytetracycline HCl [From Terramycin] Allergy (Verified 06/15/20 18:39) unknown reaction Penicillins Allergy (Verified 06/15/20 18:39) unknown reaction Home Medications: Bumetanide 2 mg PO DAILY 05/11/19 [History] Carvedilol 3.125 mg [Coreg 3.125 MG] 3.125 mg PO BID 05/11/19 [History] Cholecalciferol (Vitamin D3) [Vitamin D3] 1,000 unit PO DAILY 05/11/19 [History] Gabapentin 400 mg PO TID 05/11/19 [History] Isosorbide Mononitrate [Isosorbide Mononitrate ER] 30 mg PO DAILY 05/11/19 [History] Nitroglycerin 0.4 mg Tablet [Nitrostat 0.4 MG Tablet] 0.4 mg SL Q5MIN PRN MR X 3 PRN 05/11/19 [History] PANTOPRAZOLE 40 mg Tablet [Protonix 40MG Tablet] 40 mg PO QAM 05/11/19 [ History] Pramipexole Di-HCl [Mirapex] 1 mg PO BID 05/11/19 [History] Rosuvastatin Calcium 20 mg PO HS 05/11/19 [History] Warfarin Sodium 5 mg [Coumadin 5 MG] 5 mg PO DAILY 05/11/19 [History] calcitrioL [Calcitriol] 0.25 mcg PO DAILY 05/11/19 [History] Allopurinol 100 mg [Zyloprim 100 mg] 100 mg PO DAILY 07/12/19 [History] Cyclobenzaprine HCl 10 mg [Cyclobenzaprine 10 MG] 10 mg PO TID 07/12/19 [History] buPROPion HCl [Bupropion HCl Sr] 200 mg PO BID 07/12/19 [History] Aspirin [Aspirin EC] 1 tab PO DAILY 09/19/19 [History] Enoxaparin Sodium 80 mg SPINAL Q12H 09/19/19 [History] Hx Tetanus, Diphtheria Vaccination/Date Given: Yes Hx Influenza Vaccination/Date Given: Yes Hx Pneumococcal Vaccination/Date Given: Yes Immunizations Up to Date: Yes Travel Risk - International Travel Have you traveled outside of the country in past 3 weeks: No - Coronavirus Screening Are you exhibiting any of the following symptoms?: No Close contact with a COVID-19 positive Pt in past 14-21 Days: No - Review of Systems Constitutional: No Symptoms Eyes: No Symptoms Ears, Nose, & Throat: No Symptoms Respiratory: No Symptoms Cardiac: Chest Pain Abdominal/Gastrointestinal: No Symptoms Genitourinary Symptoms: No Symptoms Musculoskeletal: Arthralgias Skin: No Symptoms Neurological: No Symptoms Psychological: No Symptoms Endocrine: No Symptoms Hematologic/Lymphatic: No Symptoms Immunological/Allergic: No Symptoms - Past Medical History Pertinent Past Medical History: Yes Neurological History: Stroke, TIA ENT History: No Pertinent History Cardiac History: Aneurysm, Congestive Heart Failure, Hypertension, Myocardial Infarction ([place]) Respiratory History: CHF, Pneumonia Endocrine Medical History: No Pertinent History Musculoskeletal History: Osteoporosis GI Medical History: GERD History: No Pertinent History Psycho-Social History: Anxiety, Depression Female Reproductive Disorders: Endometriosis Other Medical History: LUPUS ANTICOAGULANT DISORDER, MORBID OBESITY, GOUT, ANXIETY, DEPRESSION, VENTRICULAR ARRHYTHMIA, CKD STAGE 4, OSTEOPOROSIS, HYPERGLYCEMIA, FRACTURE PATELLA 2016, dialysis - Past Surgical History Past Surgical History: Yes Neuro Surgical History: No Pertinent History Cardiac: Cardiac Stent Respiratory: No Pertinent History Gastrointestinal: No Pertinent History Genitourinary: No Pertinent History Musculoskeletal: No Pertinent History Female Surgical History: Hysterectomy Other Surgical History: CARPAL TUNNEL-RIGHT WRIST, RIGHT FOOT - Social History Smoking Status: Current every day smoker How long have you smoked: years Exposure to second hand smoke: No Drug Use: marijuana Patient Lives Alone: Yes - Physical Exam General Appearance: no apparent distress Eye Exam: PERRL/EOMI, eyes nml inspection Ears, Nose, Throat Exam: normal ENT inspection, pharynx normal Neck Exam: normal inspection, non-tender, supple, full range of motion Respiratory Exam: normal breath sounds, lungs clear, No chest tenderness Cardiovascular Exam: regular rate/rhythm, normal heart sounds Gastrointestinal/Abdomen Exam: soft, normal bowel sounds, No tenderness Back Exam: normal inspection Extremity Exam: normal inspection, normal range of motion, pelvis stable, pedal edema Neurologic Exam: alert, oriented x 3, cooperative Skin Exam: normal color SpO2 Interpretation: normal SpO2: 96 O2 Delivery: Room Air - Course EKG Interpreted by Me: RATE (94), Sinus Rhythm, NORMAL AXIS, NORMAL INTERVALS, Other (ST depression in lateral leads) - Progress Progress: improved Air Movement: good Progress Note: 06/15/20 18:54 she is given aspirin along with morphine and GI cocktail, pain is better on reevaluation. EKG showed ST depression in lateral leads. Chest x- ray showed cardiomegaly with no focal infiltrative process reviewed by me, official report is pending. Will risk factors for CAD, work-up is pending, care is transferred to Dr. Jeronimo at shift change for final disposition. - Departure Clinical Impression: Non-cardiac chest pain, Gastritis, Renal failure Condition: Stable Referrals: DOCTOR,NO FAMILY [Primary Care Provider] - Additional Instructions: Keep your dialysis appointment for tomorrow morning. Call Dr. Villarreal's office tomorrow to make arrangements for follow-up appointment. Return to the emergency room if symptoms recur. <DEEP JERONIMO - Last Filed: 06/15/20 22:40> - Nursing Vital Signs Nursing Vital Signs: Initial Vital Signs Temperature 98.0 F 06/15/20 18:11 Pulse Rate 96 H 06/15/20 18:11 Respiratory Rate 23 06/15/20 18:11 Blood Pressure 140/67 06/15/20 18:11 O2 Sat by Pulse Oximetry 96 06/15/20 18:11 Pain Scale Pain Intensity 4 Ordered Tests: Active Orders 24 hr Category Date Time Status Corporate Intern STAT Care 06/15/20 18:20 Active EKG-ER Only STAT Care 06/15/20 18:19 Active IV Insertion STAT Care 06/15/20 18:19 Active Oxygen-ED Only Nasal Cannula 2 lpm Care 06/15/20 18:19 Active CHEST 1 VIEW (PORTABLE) Stat Exams 06/15/20 18:19 Taken CBC W DIFF Stat Lab 06/15/20 18:30 Completed CMP Stat Lab 06/15/20 18:30 Completed NT PRO BNP Stat Lab 06/15/20 18:30 Completed TROPONIN Q3H Lab 06/15/20 18:30 Completed TROPONIN Q3H Lab 06/15/20 21:45 Completed TROPONIN Q3H Lab 06/16/20 00:30 Ordered TROPONIN Q3H Lab 06/16/20 03:30 Ordered TROPONIN Q3H Lab 06/16/20 06:30 Ordered Medication Summary Discontinued Medications Generic Name Dose Route Start Last Admin Trade Name Freq PRN Reason Stop Dose Admin Al Hydrox/Mg Hydrox/Simethicone Confirm 06/15/20 18:27 Maalox Es 30 Ml Unit Dose Administered 06/15/20 18:28 Dose 30 ml .ROUTE .STK-MED ONE Aspirin 324 mg 06/15/20 18:19 06/15/20 18:24 Baby Aspirin 81 Mg Chew PO 06/15/20 18:20 324 mg STAT ONE Administration Lidocaine HCl Confirm 06/15/20 18:27 Xylocaine Hcl Viscous * Administered 06/15/20 18:28 Dose 15 ml .ROUTE .STK-MED ONE Magnesium Hydroxide 45 ml 06/15/20 18:59 06/15/20 19:00 Gi Cocktail 45 Ml (Maalox/Lidocaine) PO 06/15/20 19:00 45 ml STAT ONE Administration Morphine Sulfate 4 mg 06/15/20 18:19 06/15/20 18:30 Morphine Sulfate 4 Mg Inj IV 06/15/20 18:20 4 mg STAT ONE Administration Morphine Sulfate Confirm 06/15/20 18:26 Morphine Sulfate 4 Mg Inj Administered 06/15/20 18:27 Dose 4 mg .ROUTE .STK-MED ONE Ondansetron HCl 4 mg 06/15/20 18:19 06/15/20 18:31 Zofran 4 Mg/2 Ml Vial IV 06/15/20 18:20 4 mg STAT ONE Administration Ondansetron HCl Confirm 06/15/20 18:26 Zofran 4 Mg/2 Ml Vial Administered 06/15/20 18:27 Dose 4 mg .ROUTE .STK-MED ONE Lab/Rad Data: Laboratory Result Diagrams 06/15/20 18:30 06/15/20 18:30 Laboratory Results 06/15/20 06/15/20 06/15/20 Range/Units 21:45 18:30 18:30 WBC (4.0-10.5) K/mm3 RBC (4.1-5.4) M/mm3 Hgb (12.0-16.0) gm/dl Hct (35-47) % MCV (78-100) fl MCH (26-32) pg MCHC (32-36) g/dl RDW (11.5-14.0) % Plt Count (150-450) K/mm3 MPV (7.5-11.0) fl Gran % (36.0-66.0) % Eos # (Auto) (0-0.5) Absolute Lymphs (auto) (1.0-4.6) Absolute Monos (auto) (0.0-1.3) Lymphocytes % (24.0-44.0) % Monocytes % (0.0-12.0) % Eosinophils % (0.00-5.0) % Basophils % (0.0-0.4) % Absolute Granulocytes (1.4-6.9) Basophils # (0-0.4) Sodium 137 (137-145) mmol/L Potassium 4.8 (3.5-5.1) mmol/L Chloride 102 (98-107) mmol/L Carbon Dioxide 25 (22-30) mmol/L Anion Gap 14.6 (5-15) MEQ/L BUN 61 H (7-17) mg/dL Creatinine 5.29 H (0.52-1.04) mg/dL Estimated GFR 8.8 ML/MIN Glucose 114 H (74-106) mg/dL Calcium 9.6 (8.4-10.2) mg/dL Total Bilirubin 0.30 (0.2-1.3) mg/dL AST 18 (14-36) U/L ALT 11 (0-35) U/L Alkaline Phosphatase 124 (38-126) U/L Troponin I 0.028 0.027 (0.000-0.034) ng/mL NT-Pro-B Natriuret Pep 78177 H (0-900) pg/mL Serum Total Protein 7.8 (6.3-8.2) g/dL Albumin 4.4 (3.5-5.0) g/dL 06/15/20 Range/Units 18:30 WBC 10.9 H (4.0-10.5) K/mm3 RBC 3.35 L (4.1-5.4) M/mm3 Hgb 10.5 L (12.0-16.0) gm/dl Hct 33.6 L (35-47) % MCV 100.3 H (78-100) fl MCH 31.3 (26-32) pg MCHC 31.3 L (32-36) g/dl RDW 14.0 (11.5-14.0) % Plt Count 108 L (150-450) K/mm3 MPV 10.9 (7.5-11.0) fl Gran % 66.0 (36.0-66.0) % Eos # (Auto) 0.42 (0-0.5) Absolute Lymphs (auto) 2.61 (1.0-4.6) Absolute Monos (auto) 0.67 (0.0-1.3) Lymphocytes % 23.9 L (24.0-44.0) % Monocytes % 6.1 (0.0-12.0) % Eosinophils % 3.8 (0.00-5.0) % Basophils % 0.2 (0.0-0.4) % Absolute Granulocytes 7.21 H (1.4-6.9) Basophils # 0.02 (0-0.4) Sodium (137-145) mmol/L Potassium (3.5-5.1) mmol/L Chloride (98-107) mmol/L Carbon Dioxide (22-30) mmol/L Anion Gap (5-15) MEQ/L BUN (7-17) mg/dL Creatinine (0.52-1.04) mg/dL Estimated GFR ML/MIN Glucose (74-106) mg/dL Calcium (8.4-10.2) mg/dL Total Bilirubin (0.2-1.3) mg/dL AST (14-36) U/L ALT (0-35) U/L Alkaline Phosphatase (38-126) U/L Troponin I (0.000-0.034) ng/mL NT-Pro-B Natriuret Pep (0-900) pg/mL Serum Total Protein (6.3-8.2) g/dL Albumin (3.5-5.0) g/dL - Progress Progress: re-examined Progress Note: 06/15/20 22:35 Medical decision making: This patient has not had chest pain since I took over care of her at 7 PM. I have checked on her a few times. Her vital signs are stable. Patient has renal failure and is on dialysis. She is due for dialysis session tomorrow. Patient's troponins x2 are both normal. Patient no longer has chest pain or shortness of breath. Patient states that she is tired and wants to go to bed in her own bed. Her renal failure likely elevates her troponin levels. In review of old troponin levels, the levels today are very low. Patient likely had gastritis after eating 20 peppermint candies in 1 sitting. There are no no acute findings on the patient's chest x-ray or lab work other than the elevated creatinine but she is due for dialysis tomorrow. We will discharge her to home. Blood Culture(s) Obtained: No Antibiotics given: No Counseled pt/family regarding: lab results, diagnosis, need for follow-up, rad results - Departure Departure Disposition: Home Critical Care Time: No
[2020-06-15 18:42] LABS: Absolute Neutrophil Ct (ANC) 7.21 (1.4-6.9); BASOPHIL % 0.2 % (0.0-0.4); Basophil (Absolute #) 0.02 (0-0.4); Eosinophil % 3.8 % (0.00-5.0); Eosinophil (Absolute #) 0.42 (0-0.5); Hematocrit 33.6 % (35-47); Hemoglobin 10.5 gm/dl (12.0-16.0); Lymphocyte (Absolute #) 2.61 (1.0-4.6); Lymphocytes % 23.9 % (24.0-44.0); Mean Cell Volume 100.3 fl (78-100); Mean Corpuscular Hemoglobin 31.3 pg (26-32); Mean Corpuscular Hgb Concent. 31.3 g/dl (32-36); Mean Platelet Volume 10.9 fl (7.5-11.0); Monocyte (Absolute #) 0.67 (0.0-1.3); Monocytes % 6.1 % (0.0-12.0); Platelet Count 108 K/mm3 (150-450); Red Blood Count 3.35 M/mm3 (4.1-5.4); White Blood Count 10.9 K/mm3 (4.0-10.5)
[2020-06-15] MEDS ORDERED: GI COCKTAIL 45 ML (Maalox/Lidocaine) PO ONE (18:59)
[2020-06-15 19:01] LABS: ALBUMIN 4.4 g/dL (3.5-5.0); ANION GAP 14.6 MEQ/L (5-15); BILIRUBIN,TOTAL 0.3 mg/dL (0.2-1.3); Calcium 9.6 mg/dL (8.4-10.2); Creatinine 1 5.29 mg/dL (0.52-1.04); EST GLOMERULAR FILTRATION RATE 8.8 ML/MIN; Potassium 4.8 mmol/L (3.5-5.1); Total Protein 7.8 g/dL (6.3-8.2)
[2020-06-15 22:10] VITALS: O2SAT 98
[2020-06-15 22:53] VITALS: BP 108/63; PULSE 79
--- NOTE | 2020-06-16 08:48 | XRAY ---
Indication: Chest pain. Comparison: September 24, 2019. Portable chest again demonstrates chronic bibasilar discoid atelectasis/scarring, scattered tiny calcified granulomas, and cardiomegaly. New right double-lumen dialysis catheter without complications. No focal infiltrate, consolidation, or large effusion. Bony thorax intact again with osteopenia and degenerative changes. Impression: Nonacute chest with chronic features.
== END 2020-06-15 23:02 | disposition home or self-care (01) ==
LOC: ED 18:09
DX: R07.89 Other chest pain (principal); K29.70 Gastritis, unspecified, without bleeding; E78.5 Hyperlipidemia, unspecified; I25.810 Atherosclerosis of coronary artery bypass graft(s) without angina pectoris; I50.9 Heart failure, unspecified; I12.0 Hypertensive chronic kidney disease with stage 5 chronic kidney disease or end stage renal disease; N18.6 End stage renal disease; Z99.2 Dependence on renal dialysis; Z79.899 Other long term (current) drug therapy; I25.2 Old myocardial infarction
CPT/HCPCS: 36000; 36415; 71045; 80053; 83880; 84484; 85025; 93005; 93041; 96374; 96375; 99284; J2270; J2405; A9270-GY

== ENCOUNTER 2020-06-18 22:03 | Emergency (ER) | payer MEDICARE ==
--- NOTE | 2020-06-18 22:18 | ERPHSYRPT ---
- History of Present Illness Time Seen by Provider: 06/18/20 22:18 Source: patient, EMS Exam Limitations: clinical condition Physician History: A 59-year-old white female who is extremely noncompliant. She presents with bilateral leg pain. Patient has chronic renal failure and undergoes dialysis Tuesday. She had a dialysis session this morning. Patient states she does not have a primary care physician any longer. Patient states that she stopped her medication. Patient specifically states that she is having leg pain and cramping and it was present even before her dialysis today. She has not been taking her gabapentin or her Mirapex. Patient was here on 06/15/2020 for chest pain. She ruled out for any cardiac issues. Patient has no specific chest pain. Her primary complaint today is that she is having an exacerbation of her restless leg syndrome because she has not been on her gabapentin and Mirapex. Patient is not short of breath. Patient did not have trauma to her lower extremities. Patient was brought in by the ambulance. Tim sierra states that if she does not get her pain medicine she is going to walk out of the emergency department. Quality: burning, stabbing Severity of Pain-Max: moderate Severity of Pain-Current: moderate Lower Extremities Pain: leg: bilateral, knee: bilateral Associated Symptoms: none Allergies/Adverse Reactions: amoxicillin Allergy (Verified 06/18/20 22:08) unknown reaction oxytetracycline [From Terramycin] Allergy (Verified 06/18/20 22:08) oxytetracycline HCl [From Terramycin] Allergy (Verified 06/18/20 22:08) unknown reaction Penicillins Allergy (Verified 06/18/20 22:08) unknown reaction Home Medications: Bumetanide 2 mg PO DAILY 05/11/19 [History] Carvedilol 3.125 mg [Coreg 3.125 MG] 3.125 mg PO BID 05/11/19 [History] Cholecalciferol (Vitamin D3) [Vitamin D3] 1,000 unit PO DAILY 05/11/19 [History] Gabapentin 400 mg PO TID 05/11/19 [History] Isosorbide Mononitrate [Isosorbide Mononitrate ER] 30 mg PO DAILY 05/11/19 [History] Nitroglycerin 0.4 mg Tablet [Nitrostat 0.4 MG Tablet] 0.4 mg SL Q5MIN PRN MR X 3 PRN 05/11/19 [History] PANTOPRAZOLE 40 mg Tablet [Protonix 40MG Tablet] 40 mg PO QAM 05/11/19 [History] Pramipexole Di-HCl [Mirapex] 1 mg PO BID 05/11/19 [History] Rosuvastatin Calcium 20 mg PO HS 05/11/19 [History] Warfarin Sodium 5 mg [Coumadin 5 MG] 5 mg PO DAILY 05/11/19 [History] calcitrioL [Calcitriol] 0.25 mcg PO DAILY 05/11/19 [History] Allopurinol 100 mg [Zyloprim 100 mg] 100 mg PO DAILY 07/12/19 [History] Cyclobenzaprine HCl 10 mg [Cyclobenzaprine 10 MG] 10 mg PO TID 07/12/19 [History] buPROPion HCl [Bupropion HCl Sr] 200 mg PO BID 07/12/19 [History] Aspirin [Aspirin EC] 1 tab PO DAILY 09/19/19 [History] Enoxaparin Sodium 80 mg SPINAL Q12H 09/19/19 [History] Hx Tetanus, Diphtheria Vaccination/Date Given: Yes Hx Influenza Vaccination/Date Given: Yes Hx Pneumococcal Vaccination/Date Given: Yes Travel Risk - International Travel Have you traveled outside of the country in past 3 weeks: No - Coronavirus Screening Are you exhibiting any of the following symptoms?: No Close contact with a COVID-19 positive Pt in past 14-21 Days: No - Review of Systems Constitutional: No Symptoms Eyes: No Symptoms Ears, Nose, & Throat: No Symptoms Respiratory: No Symptoms Cardiac: No Symptoms Abdominal/Gastrointestinal: No Symptoms Genitourinary Symptoms: No Symptoms Musculoskeletal: Other (Bilateral lower extremity pain like her restless leg syndrome) Skin: No Symptoms Neurological: No Symptoms Psychological: No Symptoms Endocrine: No Symptoms Hematologic/Lymphatic: No Symptoms Immunological/Allergic: No Symptoms All Other Systems: Reviewed and Negative - Past Medical History Pertinent Past Medical History: Yes Neurological History: Stroke, TIA ENT History: No Pertinent History Cardiac History: Aneurysm, Congestive Heart Failure, Hypertension, Myocardial Infarction ([place]) Respiratory History: CHF, Pneumonia Endocrine Medical History: No Pertinent History Musculoskeletal History: Osteoporosis GI Medical History: GERD History: No Pertinent History Psycho-Social History: Anxiety, Depression Female Reproductive Disorders: Endometriosis Other Medical History: LUPUS ANTICOAGULANT DISORDER, MORBID OBESITY, GOUT, ANXIETY, DEPRESSION, VENTRICULAR ARRHYTHMIA, CKD STAGE 4, OSTEOPOROSIS, HYPERGLYCEMIA, FRACTURE PATELLA 2016, dialysis - Past Surgical History Past Surgical History: Yes Neuro Surgical History: No Pertinent History Cardiac: Cardiac Stent Respiratory: No Pertinent History Gastrointestinal: No Pertinent History Genitourinary: No Pertinent History Musculoskeletal: No Pertinent History Female Surgical History: Hysterectomy Other Surgical History: CARPAL TUNNEL-RIGHT WRIST, RIGHT FOOT - Social History Smoking Status: Current every day smoker How long have you smoked: years Exposure to second hand smoke: No Drug Use: marijuana Patient Lives Alone: Yes - Nursing Vital Signs Nursing Vital Signs: Initial Vital Signs Temperature 98.8 F 06/18/20 22:04 Pulse Rate 130 H 06/18/20 22:04 Respiratory Rate 22 06/18/20 22:04 Blood Pressure 130/90 06/18/20 22:04 O2 Sat by Pulse Oximetry 99 06/18/20 22:04 Pain Scale Pain Intensity 10 - Physical Exam General Appearance: no apparent distress, alert, anxiety Eyes, Ears, Nose, Throat Exam: normal ENT inspection, moist mucous membranes Neck Exam: normal inspection, non-tender, supple, full range of motion Cardiovascular/Respiratory Exam: chest non-tender, no respiratory distress Gastrointestinal/Abdominal Exam: non-tender Back Exam: normal inspection, normal range of motion, No CVA tenderness, No vertebral tenderness Hips Exam: bilateral: non-tender, normal inspection, normal range of motion, no evidence of injury Legs Exam: bilateral leg: normal inspection, normal range of motion, no evidence of injury, pain (This like her restless leg syndrome) Knees Exam: bilateral knee: non-tender, normal inspection, normal range of motion, no evidence of injury Ankle Exam: bilateral ankle: non-tender, normal inspection, normal range of motion, no evidence of injury Foot Exam: bilateral foot: non-tender, normal inspection, normal range of motion, no evidence of injury Neuro/Tendon Exam: normal sensation, normal motor functions, normal tendon functions, responds to pain Mental Status Exam: alert, oriented x 3, agitated Skin Exam: normal color, warm, dry SpO2 Interpretation: normal Ordered Tests: Active Orders 24 hr Category Date Time Status IV Insertion STAT Care 06/18/20 22:18 Active CBC W DIFF Stat Lab 06/18/20 22:50 Received CMP Stat Lab 06/18/20 22:50 Completed INFLUENZA A+B SAMANTHA Stat Lab 06/18/20 22:50 Completed MAGNESIUM Stat Lab 06/18/20 22:50 Completed Hill Screen Stat Lab 06/18/20 22:50 Completed PT INR [PROTIME WITH INR] Stat Lab 06/18/20 22:50 Completed Medication Summary Generic Name Dose Route Start Last Admin Trade Name Freq PRN Reason Stop Dose Admin Gabapentin 300 mg 06/19/20 22:33 06/18/20 23:01 Neurontin 300 Mg PO 06/19/20 22:34 300 mg STAT ONE Administration Sodium Chloride 1,000 mls @ 100 mls/hr 06/18/20 22:30 06/18/20 22:32 Sodium Chloride 0.9% 1000 Ml IV 07/18/20 22:29 100 mls/hr .Q10H TRESSA Administration Pramipexole Dihydrochloride 0.25 mg 06/19/20 22:35 06/18/20 23:01 Mirapex 0.5 Mg Tablet PO 06/19/20 22:36 0.25 mg STAT ONE Administration Discontinued Medications Generic Name Dose Route Start Last Admin Trade Name Freq PRN Reason Stop Dose Admin Gabapentin Confirm 06/18/20 22:57 Neurontin 300 Mg Administered 06/18/20 22:58 Dose 300 mg .ROUTE .STK-MED ONE Pramipexole Dihydrochloride Confirm 06/18/20 22:57 Mirapex 0.5 Mg Tablet Administered 06/18/20 22:58 Dose 0.5 mg .ROUTE .STK-MED ONE Lab/Rad Data: Laboratory Result Diagrams 06/18/20 22:50 Laboratory Results 06/18/20 06/18/20 06/18/20 Range/Units 22:50 22:50 22:50 PT 15.6 H (9.95-12.35) SECONDS INR 1.38 (0.8-3.0) Sodium (137-145) mmol/L Potassium (3.5-5.1) mmol/L Chloride (98-107) mmol/L Carbon Dioxide (22-30) mmol/L Anion Gap (5-15) MEQ/L BUN (7-17) mg/dL Creatinine (0.52-1.04) mg/dL Estimated GFR ML/MIN Glucose (74-106) mg/dL Calcium (8.4-10.2) mg/dL Magnesium (1.6-2.3) mg/dL Total Bilirubin (0.2-1.3) mg/dL AST (14-36) U/L ALT (0-35) U/L Alkaline Phosphatase (38-126) U/L Serum Total Protein (6.3-8.2) g/dL Albumin (3.5-5.0) g/dL Monoscreen NEGATIVE (Negative) Influenza Type A Ag NEGATIVE (NEGATIVE) Influenza Type B Ag NEGATIVE (NEGATIVE) 06/18/20 Range/Units 22:50 PT (9.95-12.35) SECONDS INR (0.8-3.0) Sodium 135 L (137-145) mmol/L Potassium 4.5 (3.5-5.1) mmol/L Chloride 96 L (98-107) mmol/L Carbon Dioxide 31 H (22-30) mmol/L Anion Gap 11.7 (5-15) MEQ/L BUN 19 H (7-17) mg/dL Creatinine 2.92 H (0.52-1.04) mg/dL Estimated GFR 17.5 ML/MIN Glucose 113 H (74-106) mg/dL Calcium 9.5 (8.4-10.2) mg/dL Magnesium 2.2 (1.6-2.3) mg/dL Total Bilirubin 0.50 (0.2-1.3) mg/dL AST 23 (14-36) U/L ALT 14 (0-35) U/L Alkaline Phosphatase 82 (38-126) U/L Serum Total Protein 7.4 (6.3-8.2) g/dL Albumin 4.1 (3.5-5.0) g/dL Monoscreen (Negative) Influenza Type A Ag (NEGATIVE) Influenza Type B Ag (NEGATIVE) - Progress Progress: improved, pain not gone completely, re-examined Counseled pt/family regarding: lab results, diagnosis, need for follow-up - Departure Departure Disposition: Home Clinical Impression: Leg pain, Restless leg syndrome Condition: Stable Critical Care Time: No Referrals: DOCTOR,NO FAMILY [Primary Care Provider] - Additional Instructions: Follow-up with your prescribing doctor tomorrow to make arrangements for reviewing your medications and to prescribe necessary medications for outpatient control of your medical issues
[2020-06-18 22:21] VITALS: O2SAT 99
[2020-06-18] MEDS ORDERED: Sodium Chloride 0.9% 1000 ML 1,000 ML IV SCH (22:30)
[2020-06-18] MEDS ORDERED: Sodium Chloride 0.9% 1000 ML 1,000 ML ONE (22:31)
[2020-06-18] MEDS ORDERED: NEURONTIN 300 MG ONE (22:57)
[2020-06-18] MEDS ORDERED: Mirapex 0.5 MG Tablet ONE (22:57)
[2020-06-18 23:19] LABS: INR 1.38 (0.8-3.0); PROTIME 15.6 SECONDS (9.95-12.35)
[2020-06-18 23:20] LABS: Absolute Neutrophil Ct (ANC) 6.57 (1.4-6.9); BASOPHIL % 0.3 % (0.0-0.4); Basophil (Absolute #) 0.03 (0-0.4); Eosinophil % 1.1 % (0.00-5.0); Eosinophil (Absolute #) 0.11 (0-0.5); Hematocrit 32.8 % (35-47); Hemoglobin 10.2 gm/dl (12.0-16.0); Lymphocyte (Absolute #) 2.39 (1.0-4.6); Lymphocytes % 24.1 % (24.0-44.0); Mean Cell Volume 99.4 fl (78-100); Mean Corpuscular Hemoglobin 30.9 pg (26-32); Mean Corpuscular Hgb Concent. 31.1 g/dl (32-36); Mean Platelet Volume 12.4 fl (7.5-11.0); Monocyte (Absolute #) 0.81 (0.0-1.3); Monocytes % 8.2 % (0.0-12.0); Neutrophil % 66.3 % (36.0-66.0); Platelet Count 33 K/mm3 (150-450); Red Cell Distribution Width 13.9 % (11.5-14.0); White Blood Count 9.9 K/mm3 (4.0-10.5)
[2020-06-18 23:25] LABS: ALBUMIN 4.1 g/dL (3.5-5.0); ANION GAP 11.7 MEQ/L (5-15); BILIRUBIN,TOTAL 0.5 mg/dL (0.2-1.3); Calcium 9.5 mg/dL (8.4-10.2); Creatinine 1 2.92 mg/dL (0.52-1.04); EST GLOMERULAR FILTRATION RATE 17.5 ML/MIN; MAGNESIUM 2.2 mg/dL (1.6-2.3); Potassium 4.5 mmol/L (3.5-5.1); Total Protein 7.4 g/dL (6.3-8.2)
[2020-06-18 23:31] LABS: INFLUENZA A NEGATIVE (NEGATIVE); INFLUENZA B NEGATIVE (NEGATIVE)
[2020-06-18] MEDS ORDERED: MORPHINE SULFATE 2 MG INJ IV ONE (23:47)
[2020-06-18] MEDS ORDERED: ZOFRAN ODT 4 MG PO ONE (23:47)
[2020-06-18] MEDS ORDERED: ZOFRAN ODT 4 MG ONE (23:52)
[2020-06-18] MEDS ORDERED: MORPHINE SULFATE 2 MG INJ ONE (23:52)
[2020-06-19 00:22] VITALS: BP 135/85; PULSE 100
[2020-06-19 02:51] LABS: Slide Review 1 YES
[2020-06-19] MEDS ORDERED: NEURONTIN 300 MG PO ONE (22:33)
[2020-06-19] MEDS ORDERED: Mirapex 0.5 MG Tablet PO ONE (22:35)
== END 2020-06-19 00:22 | disposition home or self-care (01) ==
LOC: ED 22:03
DX: M79.606 Pain in leg, unspecified (principal); I12.9 Hypertensive chronic kidney disease with stage 1 through stage 4 chronic kidney disease, or unspecified chronic kidney disease; N18.4 Chronic kidney disease, stage 4 (severe); I50.9 Heart failure, unspecified; I25.2 Old myocardial infarction; M81.0 Age-related osteoporosis without current pathological fracture; K21.9 Gastro-esophageal reflux disease without esophagitis; F41.9 Anxiety disorder, unspecified; N80.9 Endometriosis, unspecified
CPT/HCPCS: 36000; 36415; 80053; 83735; 85025; 85610; 86308; 87400; 96374; 99284; J2270; Q0162; A9270-GY

== ENCOUNTER 2020-06-25 15:19 | Observation (INO) | payer MEDICARE ==
--- NOTE | 2020-06-25 15:26 | ERPHSYRPT ---
- History of Present Illness Time Seen by Provider: 06/25/20 15:26 Source: patient Exam Limitations: clinical condition Physician History: This is a 59-year-old white female who is noncompliant and has a history of chronic renal failure on Tuesday dialysis. Patient also has a history of alcoholism/substance abuse in the past, coronary artery disease, d ementia, gastroesophageal reflux disease, hypertension, transient ischemic attacks as well as depression and restless leg syndrome. Patient states she no longer has a primary care provider. Patient is not taking all her medications as prescribed. Patient was evaluated at [facility] in [facility] with a complaint of fall and injury to her head and both shoulders. I reviewed the records from that visit. That visit was performed this morning, 06/25/2020, at 6:00 in the morning. There was an EKG performed which showed no acute ischemic changes. The hemoglobin was 10.1, white count was 8.5. BUN creatinine (prior to dialysis this morning) was 42/6.0 with a normal potassium and sodium level. CAT scan of the cervical spine showed no acute subluxation or fracture. There were degenerative changes. The right shoulder x-ray was intact with mild/moderate degenerative changes but no acute dislocation or fracture. X-ray of the left shoulder also showed the left shoulder to be intact with mild degenerative changes present there were no acute fractures or dislocation prese nt. CAT scan of the head shows no evidence of any intracranial bleed there are old infarcts present. And there were no changes in the CAT scan of the head without contrast when compared to CAT scan of the head dated 03/09/2020. Patient was discharged to home. She then went to dialysis. Patient presents to the emergency department with intractable pain in her shoulders. Occurred: this morning Reason for Fall: unknown Injuries/Pain Location: head, neck, upper extremity (Bilateral shoulders) Loss of Consciousness: no loss of consciousness Severity of Pain-Max: moderate Severity of Pain-Current: moderate Modifying Factors: Improves With: movement Associated Symptoms (Fall): other (No new falls or injuries.) Allergies/Adverse Reactions: amoxicillin Allergy (Verified 06/25/20 15:27) unknown reaction oxytetracycline [From Terramycin] Allergy (Verified 06/25/20 15:27) oxytetracycline HCl [From Terramycin] Allergy (Verified 06/25/20 15:27) unknown reaction Penicillins Allergy (Verified 06/25/20 15:27) unknown reaction Home Medications: Bumetanide 2 mg PO DAILY 05/11/19 [History] Carvedilol 3.125 mg [Coreg 3.125 MG] 3.125 mg PO BID 05/11/19 [History] Cholecalciferol (Vitamin D3) [Vitamin D3] 1,000 unit PO DAILY 05/11/19 [History] Gabapentin 400 mg PO TID 05/11/19 [History] Isosorbide Mononitrate [Isosorbide Mononitrate ER] 30 mg PO DAILY 05/11/19 [History] Nitroglycerin 0.4 mg Tablet [Nitrostat 0.4 MG Tablet] 0.4 mg SL Q5MIN PRN MR X 3 PRN 05/11/19 [History] PANTOPRAZOLE 40 mg Tablet [Protonix 40MG Tablet] 40 mg PO QAM 05/11/19 [History] Pramipexole Di-HCl [Mirapex] 1 mg PO BID 05/11/19 [History] Rosuvastatin Calcium 20 mg PO HS 05/11/19 [History] Warfarin Sodium 5 mg [Coumadin 5 MG] 5 mg PO DAILY 05/11/19 [History] calcitrioL [Calcitriol] 0.25 mcg PO DAILY 05/11/19 [History] Allopurinol 100 mg [Zyloprim 100 mg] 100 mg PO DAILY 07/12/19 [History] Cyclobenzaprine HCl 10 mg [Cyclobenzaprine 10 MG] 10 mg PO TID 07/12/19 [History] buPROPion HCl [Bupropion HCl Sr] 200 mg PO BID 07/12/19 [History] Aspirin [Aspirin EC] 1 tab PO DAILY 09/19/19 [History] Enoxaparin Sodium 80 mg SPINAL Q12H 09/19/19 [History] Hx Tetanus, Diphtheria Vaccination/Date Given: Yes Hx Influenza Vaccination/Date Given: Yes Hx Pneumococcal Vaccination/Date Given: Yes Travel Risk - International Travel Have you traveled outside of the country in past 3 weeks: No - Coronavirus Screening Are you exhibiting any of the following symptoms?: No Close contact with a COVID-19 positive Pt in past 14-21 Days: No - Review of Systems Constitutional: Weakness Eyes: No Symptoms Ears, Nose, & Throat: No Symptoms Respiratory: No Symptoms Cardiac: No Symptoms Abdominal/Gastrointestinal: No Symptoms Genitourinary Symptoms: No Symptoms Musculoskeletal: Fall, Injury, Other (Persistent pain to bilateral shoulders after falling earlier this morning.) Skin: No Symptoms Neurological: No Symptoms Psychological: No Symptoms Endocrine: No Symptoms Hematologic/Lymphatic: No Symptoms Immunological/Allergic: No Symptoms All Other Systems: Reviewed and Negative - Past Medical History Pertinent Past Medical History: Yes Neurological History: Stroke, TIA ENT History: No Pertinent History Cardiac History: Aneurysm, Congestive Heart Failure, Hypertension, Myocardial Infarction ([place]) Respiratory History: CHF, Pneumonia Endocrine Medical History: No Pertinent History Musculoskeletal History: Osteoporosis GI Medical History: GERD History: No Pertinent History Psycho-Social History: Anxiety, Depression Female Reproductive Disorders: Endometriosis Other Medical History: LUPUS ANTICOAGULANT DISORDER, MORBID OBESITY, GOUT, ANXIETY, DEPRESSION, VENTRICULAR ARRHYTHMIA, CKD STAGE 4, OSTEOPOROSIS, HYP ERGLYCEMIA, FRACTURE PATELLA 2016, dialysis - Past Surgical History Past Surgical History: Yes Neuro Surgical History: No Pertinent History Cardiac: Cardiac Stent Respiratory: No Pertinent History Gastrointestinal: No Pertinent History Genitourinary: No Pertinent History Musculoskeletal: No Pertinent History Female Surgical History: Hysterectomy Other Surgical History: CARPAL TUNNEL-RIGHT WRIST, RIGHT FOOT - Social History Smoking Status: Current every day smoker How long have you smoked: years Exposure to second hand smoke: No Drug Use: marijuana Patient Lives Alone: Yes - Nursing Vital Signs Nursing Vital Signs: Initial Vital Signs Temperature 97.5 F 06/25/20 15:29 Pulse Rate 89 06/25/20 15:29 Respiratory Rate 18 06/25/20 15:29 Blood Pressure 125/71 06/25/20 15:29 O2 Sat by Pulse Oximetry 98 06/25/20 15:29 Pain Scale Pain Intensity 8 - Jethro Coma Score Best Eye Response (Amite): (4) open spontaneously Best Verbal Response (Amite): (4) confused conversation Best Motor Response (Jethro): (6) obeys commands Amite Total: 14 - Physical Exam General Appearance: mild distress, alert, anxiety Head Injury: no evidence of injury Eye Exam: PERRL/EOMI, eyes nml inspection ENT Exam: airway nml, nml ext.inspection Neck Exam: supple, trachea midline, full range of motion, normal alignment, normal inspection Respiratory/Chest Exam: normal breath sounds, No chest tenderness, No respiratory distress, No ecchymosis, No crepitus Cardiovascular Exam: normal heart sounds, regular rate/rhythm Gastrointestinal Exam: soft, normal bowel sounds, No tenderness Rectal Exam: not done Back Exam: normal inspection, normal range of motion, No CVA tenderness, No vertebral tenderness Extremity Exam: normal inspection, normal range of motion, tenderness (Bilateral shoulders right worse than left. 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 nml as tested Skin Exam: normal color, warm, dry SpO2 Interpretation: normal O2 Delivery: Room Air - Course Nursing assessment & vital signs reviewed: Yes Ordered Tests: Active Orders 24 hr Category Date Time Status IV Insertion STAT Care 06/25/20 16:24 Active BMP Stat Lab 06/25/20 17:08 Completed CBC W DIFF Stat Lab 06/25/20 17:08 Completed Transfer Order Routine Transfer 06/25/20 Ordered Medication Summary Discontinued Medications Generic Name Dose Route Start Last Admin Trade Name Romieq PRN Reason Stop Dose Admin Morphine Sulfate 4 mg 06/25/20 16:24 06/25/20 16:45 Morphine Sulfate 4 Mg Inj IV 06/25/20 16:25 4 mg STAT ONE Administration Morphine Sulfate Confirm 06/25/20 16:39 Morphine Sulfate 4 Mg Inj Administered 06/25/20 16:40 Dose 4 mg .ROUTE .STK-MED ONE Ondansetron HCl 4 mg 06/25/20 16:24 06/25/20 16:42 Zofran 4 Mg/2 Ml Vial IV 06/25/20 16:25 4 mg STAT ONE Administration Ondansetron HCl Confirm 06/25/20 16:39 Zofran 4 Mg/2 Ml Vial Administered 06/25/20 16:40 Dose 4 mg .ROUTE .STK-MED ONE Lab/Rad Data: Laboratory Result Diagrams 06/25/20 17:08 06/25/20 17:08 Laboratory Results 06/25/20 06/25/20 Range/Units 17:08 17:08 WBC 9.1 (4.0-10.5) K/mm3 RBC 3.11 L (4.1-5.4) M/mm3 Hgb 9.6 L (12.0-16.0) gm/dl Hct 30.6 L (35-47) % MCV 98.4 (78-100) fl MCH 30.9 (26-32) pg MCHC 31.4 L (32-36) g/dl RDW 13.9 (11.5-14.0) % Plt Count 63 L (150-450) K/mm3 MPV 11.9 H (7.5-11.0) fl Gran % 64.0 (36.0-66.0) % Eos # (Auto) 0.11 (0-0.5) Absolute Lymphs (auto) 2.44 (1.0-4.6) Absolute Monos (auto) 0.70 (0.0-1.3) Lymphocytes % 26.8 (24.0-44.0) % Monocytes % 7.7 (0.0-12.0) % Eosinophils % 1.2 (0.00-5.0) % Basophils % 0.3 (0.0-0.4) % Absolute Granulocytes 5.83 (1.4-6.9) Basophils # 0.03 (0-0.4) Sodium 132 L (137-145) mmol/L Potassium 3.7 (3.5-5.1) mmol/L Chloride 94 L (98-107) mmol/L Carbon Dioxide 31 H (22-30) mmol/L Anion Gap 10.4 (5-15) MEQ/L BUN 17 (7-17) mg/dL Creatinine 3.10 H (0.52-1.04) mg/dL Estimated GFR 16.3 ML/MIN Glucose 87 (74-106) mg/dL Calcium 9.3 (8.4-10.2) mg/dL - Progress Progress: improved, pain not gone completely, re-examined Progress Note: 06/25/20 16:49 Medical decision making: This patient states that she no longer has a primary care physician. Patient is noncompliant. Patient is not taking her medication as prescribed. Patient had fallen earlier this morning and she has already had x-rays of these areas and they are negative for any acute issue. Patient has persistent, intractable pain. She is a dialysis patient. However ever, she did receive her dialysis treatment today. She arrives with stable/normal vital signs. I believe the patient will benefit from placement in observation and pain control intravenously. In addition, we will make arrangements for case management to evaluate this patient for placement in a facility if she qualifies. I spoke with Dr. Jordan who is covering for patients who do not have any primary care physician and she agrees. We will obtain some basic labs and then place her in observation in the hospital. Discussed with : Michelle Counseled pt/family regarding: lab results, diagnosis - Departure Departure Disposition: Observation Clinical Impression: Intractable pain, Case management patient, Chronic renal failure Condition: Stable Critical Care Time: No Referrals: DOCTOR,NO FAMILY [Primary Care Provider] -
[2020-06-25] MEDS ORDERED: MORPHINE SULFATE 4 MG INJ IV ONE (16:24)
[2020-06-25] MEDS ORDERED: Zofran 4 MG/2 ML VIAL IV ONE (16:24)
[2020-06-25] MEDS ORDERED: MORPHINE SULFATE 4 MG INJ ONE (16:39)
[2020-06-25] MEDS ORDERED: Zofran 4 MG/2 ML VIAL ONE (16:39)
[2020-06-25 17:09] LABS: Absolute Neutrophil Ct (ANC) 5.83 (1.4-6.9); BASOPHIL % 0.3 % (0.0-0.4); Basophil (Absolute #) 0.03 (0-0.4); Eosinophil % 1.2 % (0.00-5.0); Eosinophil (Absolute #) 0.11 (0-0.5); Hematocrit 30.6 % (35-47); Hemoglobin 9.6 gm/dl (12.0-16.0); Lymphocyte (Absolute #) 2.44 (1.0-4.6); Lymphocytes % 26.8 % (24.0-44.0); Mean Cell Volume 98.4 fl (78-100); Mean Corpuscular Hemoglobin 30.9 pg (26-32); Mean Corpuscular Hgb Concent. 31.4 g/dl (32-36); Mean Platelet Volume 11.9 fl (7.5-11.0); Monocytes % 7.7 % (0.0-12.0); Platelet Count 63 K/mm3 (150-450); Red Blood Count 3.11 M/mm3 (4.1-5.4); Red Cell Distribution Width 13.9 % (11.5-14.0); White Blood Count 9.1 K/mm3 (4.0-10.5)
[2020-06-25 17:20] LABS: ANION GAP 10.4 MEQ/L (5-15); Calcium 9.3 mg/dL (8.4-10.2); Creatinine 1 3.1 mg/dL (0.52-1.04); EST GLOMERULAR FILTRATION RATE 16.3 ML/MIN; Potassium 3.7 mmol/L (3.5-5.1)
[2020-06-25] MEDS ORDERED: Zofran 4 MG/2 ML VIAL IV PRN (19:02)
[2020-06-25] MEDS ORDERED: TYLENOL 325 MG PO PRN (19:02)
[2020-06-25] MEDS: MORPHINE SULFATE 4 MG INJ IV PRN (19:41)
[2020-06-26] MEDS: MORPHINE SULFATE 4 MG INJ IV PRN ×2 (00:29→09:40)
[2020-06-26] MEDS ORDERED: MEDICATION INTERVENTION PO SCH (15:15)
[2020-06-26] MEDS ORDERED: Protonix 40MG Tablet PO SCH (16:00)
[2020-06-26 16:37] VITALS: BP 106/57; PULSE 88; O2SAT 94
[2020-06-26] MEDS ORDERED: Mirapex 0.5 MG Tablet PO SCH (18:00)
[2020-06-26] MEDS ORDERED: Coumadin 3 MG PO SCH (18:00)
[2020-06-26] MEDS ORDERED: NON-FORMULARY ITEM (Pramipexole Di-Hcl [Mirapex] 1 MG) PO SCH (18:00)
[2020-06-26] MEDS ORDERED: Coumadin 1 MG PO SCH (18:00)
--- NOTE | 2020-06-26 21:42 | PCM.SSS ---
History of Present Illness - Chief Complaint Chief Complaint: CHRONIC RENAL FAILURE, CASE MANAGEMENT PATIENT History of Present Illness: is a 59 year old female. Medications & Allergies Home Medications: Home Medication List Doxepin HCl 10 mg PO HS 06/26/20 [History Confirmed 06/26/20] PANTOPRAZOLE 40 mg Tablet [Protonix 40MG Tablet] 40 mg PO DAILY 06/26/20 [History Confirmed 06/26/20] Pramipexole Di-HCl [Mirapex] 1 mg PO EVENING MEAL 06/26/20 [History Confirmed 06/26/20] Warfarin Sodium 4 mg PO HS 06/26/20 [History Confirmed 06/26/20] Allergies/Adverse Reactions: Allergies Allergy/AdvReac Type Severity Reaction Status Date / Time amoxicillin Allergy Verified 06/25/20 20:21 oxytetracycline Allergy Verified 06/25/20 20:21 [From Terramycin] oxytetracycline HCl Allergy Verified 06/25/20 20:21 [From Terramycin] Penicillins Allergy Verified 06/25/20 20:21 - Past Medical History Past Medical History: Yes Neurological History: TIA ENT History: No Pertinent History Cardiac History: Aneurysm, Congestive Heart Failure, Hypertension, Myocardial Infarction ([place]) Respiratory History: CHF, Pneumonia Endocrine Medical History: No Pertinent History Musculoskelatal History: Osteoporosis GI Medical History: GERD History: No Pertinent History Pyscho-Social History: Anxiety, Depression Reproductive Disorders: Endometriosis Comment: LUPUS ANTICOAGULANT DISORDER, GOUT, VENTRICULAR ARRHYTHMIA, CKD STAGE 4, OSTEOPOROSIS, HYPERGLYCEMIA, FRACTURE PATELLA 2016, dialysis MWF - Female History Are you now?: No - Past Surgical History Past Surgical History: Yes Neuro Surgical History: No Pertinent History Cardiac History: Cardiac Stent Respiratory Surgery: No Pertinent History GI Surgical History: No Pertinent History Genitourinary Surgical Hx: No Pertinent History Musculskeletal Surgical Hx: No Pertinent History Female Surgical History: Hysterectomy Other Surgical History: CARPAL TUNNEL-RIGHT WRIST, RIGHT FOOT - Social History Smoking Status: Current every day smoker How long have you smoked: 46 years Exposure to second hand smoke: No Alcohol: None Drug Use: marijuana - Physical Exam Vital Signs: Vital Signs - 24 hr Temp Pulse Resp BP Pulse Ox 06/26/20 16:00 98.8 F 88 18 106/57 94 L 06/26/20 12:00 98.1 F 95 H 18 92/52 92 L 06/26/20 08:01 100 06/26/20 07:38 98.0 F 80 18 109/53 100 06/26/20 04:00 97.6 F 81 16 116/53 97 06/26/20 00:00 97.8 F 82 16 92/54 97 06/25/20 21:50 98 Oxygen-Last 24 hours Oxygen Flowrate (L/min)-RT 2 Oxygen Flowrate (L/min)-RT 2 Results - Other Procedures and Tests Respiratory Therapy 06/25/20 21:53 Oxygen NASAL CANNULA 2 [facility] Hospital Summary - Vitals & Intake/Output Vital Signs: Vital Signs Temperature 98.8 F 06/26/20 16:00 Pulse Rate 88 06/26/20 16:00 Respiratory Rate 18 06/26/20 16:00 Blood Pressure 106/57 06/26/20 16:00 O2 Sat by Pulse Oximetry 94 L 06/26/20 16:00 Intake & Output: Intake & Output 06/24/20 06/25/20 06/26/20 06/27/20 11:59 11:59 11:59 11:59 Intake Total 700 Balance 700 Weight 68.8 kg - Lab Result Diagrams: 06/25/20 17:08 06/25/20 17:08 - Procedures and Test Procedures and Tests throughout Hospitalization: Therapy Orders & Screens 06/25/20 19:02 Respiratory Therapy Consult ROUTINE Comment: Reason For Exam: 06/25/20 19:38 Respiratory Therapy Assessment DAILY Comment: 06/25/20 20:20 OT Screen per Nursing Assess ONCE Comment: Protocol Order Physician Instructions: Greater than 3 points order OT Admission Screening Reason For Exam: Triggered on Admission Diagnosis: CHRONIC RENAL FAILURE, CASE MANAGEMENT PATIENT Open Wound/Cellutlitis/Pressure Ulcers: No Acute Fx/ORIF/Change in wt bearing status: No Severe MUSCULOSKELETAL pain: Yes ADL Dysfunction: No Acute CVA w/Hemiparesis/Hemiplegia: No Decreased Functional Mobility/Strength: No Sprain/Strain: No Acute Post-op Mobility Dysfunction: No Total Points: 5 PT Screen per Nursing Assess ONCE Comment: Protocol Order Physician Instructions: Greater than 3 points order PT Admission Screenin Reason For Exam: Triggered on Admission Diagnosis: CHRONIC RENAL FAILURE, CASE MANAGEMENT PATIENT Open Wound/Cellutlitis/Pressure Ulcers: No Acute Fx/ORIF/Change in wt bearing status: No Severe MUSCULOSKELETAL pain: Yes ADL Dysfunction: No Acute CVA w/Hemiparesis/Hemiplegia: No Decreased Functional Mobility/Strength: No Sprain/Strain: No Acute Post-op Mobility Dysfunction: No Total Points: 5 Smoking Cessation Education ONCE Comment: Diagnosis: CHRONIC RENAL FAILURE, CASE MANAGEMENT PATIENT Smoking Status: Current every day smoker How long have you smoked: 46 years Have you smoked in the past 12 months: Yes Approximately how many cigarettes per day: 3 Do you dip or chew tobacco: No If,Former Smoker,when did you quit: 1.5 years 06/25/20 21:53 Oxygen NASAL CANNULA 2 lpm Comment: Diagnosis: CHRONIC RENAL FAILURE, CASE MANAGEMENT PATIENT 06/26/20 09:34 PT Eval & Treat (MD Order) ONCE Reason for Eval:: WEAKNESS, PAIN Diagnosis: CHRONIC RENAL FAILURE, CASE MANAGEMENT PATIENT - Discharge Disposition: DC TO [facility] Condition: Stable Prescriptions: No Action PANTOPRAZOLE 40 mg Tablet [Protonix 40MG Tablet] 40 mg PO DAILY Doxepin HCl 10 mg PO HS Warfarin Sodium 4 mg PO HS Pramipexole Di-HCl [Mirapex] 1 mg PO EVENING MEAL Forms: Ambulance Transport Record, Transfer Record Inter-Agency
[2020-06-26] MEDS ORDERED: DOXEPIN HCL PO SCH (22:00)
[2020-06-26] MEDS ORDERED: NON-FORMULARY ITEM PO SCH (22:00)
[2020-06-26] MEDS ORDERED: WARFARIN SODIUM 4 MG PO SCH (22:00)
== END 2020-06-26 17:40 | disposition short-term general hospital (02) ==
LOC: ED 15:19 → MED SURG 19:00
PROVIDERS: ADMIT Family Medicine; ATTEND Family Medicine
DX: I12.9 Hypertensive chronic kidney disease with stage 1 through stage 4 chronic kidney disease, or unspecified chronic kidney disease (principal); N18.4 Chronic kidney disease, stage 4 (severe); Z79.899 Other long term (current) drug therapy; Z79.01 Long term (current) use of anticoagulants; R52 Pain, unspecified; Z86.73 Personal history of transient ischemic attack (TIA), and cerebral infarction without residual deficits
CPT/HCPCS: 36000; 36415; 80048; 85025; 94762; 96374; 96375; 99285; G0378; J2270; J2405; A9270-GY

== ENCOUNTER 2020-07-31 22:50 | Emergency (ER) | payer MEDICARE ==
[2020-07-31] MEDS ORDERED: MORPHINE SULFATE 4 MG INJ IV ONE (23:26)
[2020-07-31] MEDS ORDERED: Zofran 4 MG/2 ML VIAL IV ONE (23:26)
--- NOTE | 2020-07-31 23:26 | ERPHSYRPT ---
- History of Present Illness Time Seen by Provider: 07/31/20 23:00 Source: patient, EMS Exam Limitations: clinical condition Patient Subjective Stated Complaint: pt c/o "my lungs feel raw". Triage Nursing Assessment: pt arrived via EMS. Pt was picked up at her residence. Pt states "my lungs feel raw, I can't stand this pain". Pt states, "it hurts to breath". Pt taking very shallow breaths; however clear. Pt denies cough. Abd soft with active bs x4 quad, nontender. Physician History: This is a 59-year-old white female who has chronic renal failure on Tuesday dialysis and presents with "lungs feel raw and painful". Patient has chronic recurrent shortness of breath. She has COPD, CHF coronary artery disease, hypertension, anxiety and restless leg syndrome. Patient denies patient admits to not being compliant with her medications in the last several days. She missed her dialysis treatment this past Tuesday. She stated she has no excuse not to be taking her medicine as prescribed. Patientt does not want nitroglycerin. Patient states that she has a headache Timing/Duration: constant, other Activities at Onset: none Severity of Dyspnea-Max: moderate Severity of Dyspnea-Current: moderate Possible Cause: frequent episodes, chronic episodes Associated Symptoms: No cough, No chest pain/discomfort, No edema Allergies/Adverse Reactions: amoxicillin Allergy (Verified 07/31/20 23:07) unknown reaction oxytetracycline [From Terramycin] Allergy (Verified 07/31/20 23:07) oxytetracycline HCl [From Terramycin] Allergy (Verified 07/31/20 23:07) unknown reaction Penicillins Allergy (Verified 07/31/20 23:07) unknown reaction Home Medications: Doxepin HCl 10 mg PO HS 06/26/20 [History] PANTOPRAZOLE 40 mg Tablet [Protonix 40MG Tablet] 40 mg PO DAILY 06/26/20 [History] Pramipexole Di-HCl [Mirapex] 1 mg PO EVENING MEAL 06/26/20 [History] Warfarin Sodium 4 mg PO HS 06/26/20 [History] Hx Tetanus, Diphtheria Vaccination/Date Given: Yes Hx Influenza Vaccination/Date Given: Yes Hx Pneumococcal Vaccination/Date Given: Yes Immunizations Up to Date: Yes Travel Risk - International Travel Have you traveled outside of the country in past 3 weeks: No - Coronavirus Screening Are you exhibiting any of the following symptoms?: No Symptoms: Shortness of Breath Close contact with a COVID-19 positive Pt in past 14-21 Days: No - Review of Systems Constitutional: No Symptoms Eyes: No Symptoms, Foreign Body Sensation Respiratory: Other (Both her lungs feel raw) Cardiac: No Symptoms Abdominal/Gastrointestinal: No Symptoms Genitourinary Symptoms: Incontinence Musculoskeletal: No Symptoms Skin: No Symptoms Neurological: No Symptoms Psychological: No Symptoms Endocrine: No Symptoms Hematologic/Lymphatic: No Symptoms Immunological/Allergic: No Symptoms All Other Systems: Reviewed and Negative - Past Medical History Pertinent Past Medical History: Yes Neurological History: TIA ENT History: No Pertinent History Cardiac History: Aneurysm, Congestive Heart Failure, Hypertension, Myocardial Infarction (DE) Respiratory History: CHF, Pneumonia Endocrine Medical History: No Pertinent History Musculoskeletal History: Osteoporosis GI Medical History: GERD History: No Pertinent History Psycho-Social History: Anxiety, Depression Female Reproductive Disorders: Endometriosis Other Medical History: LUPUS ANTICOAGULANT DISORDER, GOUT, VENTRICULAR ARRHYTHMIA, CKD STAGE 4, OSTEOPOROSIS, HYPERGLYCEMIA, FRACTURE PATELLA 2016, dialysis MWF - Past Surgical History Past Surgical History: Yes Neuro Surgical History: No Pertinent History Cardiac: Cardiac Stent Respiratory: No Pertinent History Gastrointestinal: No Pertinent History Genitourinary: Other Musculoskeletal: No Pertinent History Female Surgical History: Hysterectomy Other Surgical History: CARPAL TUNNEL-RIGHT WRIST, RIGHT FOOT. Dialysis catheter - Social History Smoking Status: Current every day smoker How long have you smoked: 46 years Exposure to second hand smoke: No Drug Use: marijuana Patient Lives Alone: Yes - Nursing Vital Signs Nursing Vital Signs: Initial Vital Signs Temperature 97.9 F 07/31/20 22:51 Pulse Rate 118 H 07/31/20 22:51 Respiratory Rate 22 07/31/20 22:51 Blood Pressure 134/75 07/31/20 22:51 O2 Sat by Pulse Oximetry 99 07/31/20 22:51 Pain Scale Pain Intensity 4 - Physical Exam General Appearance: no apparent distress, alert, anxiety Eye Exam: PERRL/EOMI, eyes nml inspection Ears, Nose, Throat Exam: hearing grossly normal, normal ENT inspection Neck Exam: normal inspection, non-tender, supple, full range of motion Respiratory Exam: normal breath sounds, lungs clear, airway intact, No chest tenderness, No respiratory distress Cardiovascular/Chest Exam: tachycardia Abdominal/Gastrointestinal Exam: soft, normal bowel sounds, No tenderness Rectal Exam: not done Extremity Exam: non-tender, normal range of motion, normal inspection, no calf tenderness, no pedal edema, pelvis stable Neurologic Exam: alert, oriented x 3, cooperative, watch case polisher II-XII nml as tested, nor mal mood/affect, nml station & gait, sensation nml Skin Exam: normal color, warm, dry Lymphatic Exam: No adenopathy SpO2 Interpretation: normal SpO2: 100 O2 Delivery: Room Air - Course Nursing assessment & vital signs reviewed: Yes EKG Interpreted by Me: RATE (102), Sinus Tach, NORMAL AXIS, NORMAL INTERVALS, NORMAL QRS, NORMAL ST-T, Other (No acute ischemic changes. No significant change from EKG dated 06/15/2020) Ordered Tests: Active Orders 24 hr Category Date Time Status Analysis Evaluator STAT Care 07/31/20 22:57 Active EKG-ER Only STAT Care 07/31/20 22:56 Active IV Insertion STAT Care 07/31/20 22:56 Active Pulse Oximetry (ED) STAT Care 07/31/20 22:56 Active CHEST 1 VIEW (PORTABLE) Stat Exams 07/31/20 22:57 Taken CBC W DIFF Stat Lab 07/31/20 23:11 Completed CMP Stat Lab 07/31/20 23:11 Completed INFLUENZA A+B SAMANTHA Stat Lab 07/31/20 23:20 Completed Lactic Acid Stat Lab 07/31/20 23:15 Completed NT PRO BNP Stat Lab 07/31/20 23:11 Completed PT INR [PROTIME WITH INR] Stat Lab 08/01/20 03:07 Received TROPONIN Q3H Lab 07/31/20 23:11 Completed TROPONIN Q3H Lab 08/01/20 01:55 Completed TROPONIN Q3H Lab 08/01/20 05:00 Ordered TROPONIN Q3H Lab 08/01/20 08:00 Ordered TROPONIN Q3H Lab 08/01/20 11:00 Ordered Medication Summary Discontinued Medications Generic Name Dose Route Start Last Admin Trade Name Freq PRN Reason Stop Dose Admin Morphine Sulfate 4 mg 07/31/20 23:26 07/31/20 23:41 Morphine Sulfate 4 Mg Inj IV 07/31/20 23:27 4 mg STAT ONE Administration Morphine Sulfate Confirm 07/31/20 23:38 Morphine Sulfate 4 Mg Inj Administered 07/31/20 23:39 Dose 4 mg .ROUTE .STK-MED ONE Ondansetron HCl 4 mg 07/31/20 23:26 07/31/20 23:41 Zofran 4 Mg/2 Ml Vial IV 07/31/20 23:27 4 mg STAT ONE Administration Ondansetron HCl Confirm 07/31/20 23:38 Zofran 4 Mg/2 Ml Vial Administered 07/31/20 23:39 Dose 4 mg .ROUTE .STK-MED ONE Lab/Rad Data: Laboratory Result Diagrams 07/31/20 23:11 07/31/20 23:11 Laboratory Results 08/01/20 07/31/20 07/31/20 Range/Units 01:55 23:20 23:15 WBC (4.0-10.5) K/mm3 RBC (4.1-5.4) M/mm3 Hgb (12.0-16.0) gm/dl Hct (35-47) % MCV (78-100) fl MCH (26-32) pg MCHC (32-36) g/dl RDW (11.5-14.0) % Plt Count (150-450) K/mm3 MPV (7.5-11.0) fl Gran % (36.0-66.0) % Eos # (Auto) (0-0.5) Absolute Lymphs (auto) (1.0-4.6) Absolute Monos (auto) (0.0-1.3) Lymphocytes % (24.0-44.0) % Monocytes % (0.0-12.0) % Eosinophils % (0.00-5.0) % Basophils % (0.0-0.4) % Absolute Granulocytes (1.4-6.9) Basophils # (0-0.4) Sodium (137-145) mmol/L Potassium (3.5-5.1) mmol/L Chloride (98-107) mmol/L Carbon Dioxide (22-30) mmol/L Anion Gap (5-15) MEQ/L BUN (7-17) mg/dL Creatinine (0.52-1.04) mg/dL Estimated GFR ML/MIN Glucose (74-106) mg/dL Lactic Acid 2.0 (0.4-2.0) Calcium (8.4-10.2) mg/dL Total Bilirubin (0.2-1.3) mg/dL AST (14-36) U/L ALT (0-35) U/L Alkaline Phosphatase (38-126) U/L Troponin I 0.064 H* (0.000-0.034) ng/mL NT-Pro-B Natriuret Pep (0-900) pg/mL Serum Total Protein (6.3-8.2) g/dL Albumin (3.5-5.0) g/dL Influenza Type A Ag NEGATIVE (NEGATIVE) Influenza Type B Ag NEGATIVE (NEGATIVE) Slides for Path Review 07/31/20 07/31/20 07/31/20 Range/Units 23:11 23:11 23:11 WBC 10.3 (4.0-10.5) K/mm3 RBC 2.80 L (4.1-5.4) M/mm3 Hgb 8.7 L (12.0-16.0) gm/dl Hct 28.6 L (35-47) % MCV 102.1 H (78-100) fl MCH 31.1 (26-32) pg MCHC 30.4 L (32-36) g/dl RDW 14.7 H (11.5-14.0) % Plt Count 73 L (150-450) K/mm3 MPV 11.8 H (7.5-11.0) fl Gran % 62.3 (36.0-66.0) % Eos # (Auto) 0.38 (0-0.5) Absolute Lymphs (auto) 2.87 (1.0-4.6) Absolute Monos (auto) 0.62 (0.0-1.3) Lymphocytes % 27.9 (24.0-44.0) % Monocytes % 6.0 (0.0-12.0) % Eosinophils % 3.7 (0.00-5.0) % Basophils % 0.1 (0.0-0.4) % Absolute Granulocytes 6.39 (1.4-6.9) Basophils # 0.01 (0-0.4) Sodium 138 (137-145) mmol/L Potassium 3.9 (3.5-5.1) mmol/L Chloride 102 (98-107) mmol/L Carbon Dioxide 28 (22-30) mmol/L Anion Gap 10.9 (5-15) MEQ/L BUN 37 H (7-17) mg/dL Creatinine 3.02 H (0.52-1.04) mg/dL Estimated GFR 16.8 ML/MIN Glucose 137 H (74-106) mg/dL Lactic Acid (0.4-2.0) Calcium 10.0 (8.4-10.2) mg/dL Total Bilirubin 0.30 (0.2-1.3) mg/dL AST 17 (14-36) U/L ALT 11 (0-35) U/L Alkaline Phosphatase 107 (38-126) U/L Troponin I < 0.012 (0.000-0.034) ng/mL NT-Pro-B Natriuret Pep 65455 H (0-900) pg/mL Serum Total Protein 7.1 (6.3-8.2) g/dL Albumin 3.8 (3.5-5.0) g/dL Influenza Type A Ag (NEGATIVE) Influenza Type B Ag (NEGATIVE) Slides for Path Review YES - Progress Progress: improved, re-examined Air Movement: good Progress Note: 07/31/20 23:24 Chest x-ray shows no acute cardiopulmonary process. There are chronic changes noted. 08/01/20 02:57 Chest pain has significantly improved.. Chest pain not completely resolved. Still has headache 08/01/20 03:13 Medical decision making: This patient has significant cardiac disease and a cardiac stent in place. 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 in [facility]. She prefers to go there for further management by cardiology and undergo dialysis. The patient's initial troponin was normal but then increased 5 times on the 3-hour troponin. I reevaluated her and her chest symptoms including the rawness and pain have improved but are not completely resolved. Patient did not want any nitroglycerin on admission and her headache is still present. I reviewed this patient with Dr. Chambers out of [facility] emergency department. He accepts the patient in transfer this patient has a non-STEMI and will be transferred. Blood Culture(s) Obtained: No Antibiotics given: No Counseled pt/family regarding: lab results, diagnosis, need for follow-up, rad results - Departure Departure Disposition: Transfer Clinical Impression: Non-STEMI (non-ST elevated myocardial infarction), Renal failure Condition: Stable Critical Care Time: Yes Critical Care Time(excluding separately billable procedures): Critical 30-74 mins Referrals: ERNESTINE MARQUEZ MD [Primary Care Provider] -
[2020-07-31 23:32] LABS: Absolute Neutrophil Ct (ANC) 6.39 (1.4-6.9); BASOPHIL % 0.1 % (0.0-0.4); Basophil (Absolute #) 0.01 (0-0.4); Eosinophil % 3.7 % (0.00-5.0); Eosinophil (Absolute #) 0.38 (0-0.5); Hematocrit 28.6 % (35-47); Hemoglobin 8.7 gm/dl (12.0-16.0); Lymphocyte (Absolute #) 2.87 (1.0-4.6); Lymphocytes % 27.9 % (24.0-44.0); Mean Cell Volume 102.1 fl (78-100); Mean Corpuscular Hemoglobin 31.1 pg (26-32); Mean Corpuscular Hgb Concent. 30.4 g/dl (32-36); Mean Platelet Volume 11.8 fl (7.5-11.0); Monocyte (Absolute #) 0.62 (0.0-1.3); Neutrophil % 62.3 % (36.0-66.0); Platelet Count 73 K/mm3 (150-450); Red Cell Distribution Width 14.7 % (11.5-14.0); White Blood Count 10.3 K/mm3 (4.0-10.5)
[2020-07-31] MEDS ORDERED: Zofran 4 MG/2 ML VIAL ONE (23:38)
[2020-07-31] MEDS ORDERED: MORPHINE SULFATE 4 MG INJ ONE (23:38)
[2020-08-01 00:05] LABS: ALBUMIN 3.8 g/dL (3.5-5.0); ANION GAP 10.9 MEQ/L (5-15); BILIRUBIN,TOTAL 0.3 mg/dL (0.2-1.3); Creatinine 1 3.02 mg/dL (0.52-1.04); EST GLOMERULAR FILTRATION RATE 16.8 ML/MIN; Potassium 3.9 mmol/L (3.5-5.1); Total Protein 7.1 g/dL (6.3-8.2)
[2020-08-01 00:18] LABS: INFLUENZA A NEGATIVE (NEGATIVE); INFLUENZA B NEGATIVE (NEGATIVE)
[2020-08-01 00:41] LABS: Slide Review 1 YES
[2020-08-01 03:12] VITALS: PULSE 89
[2020-08-01 03:12] LABS: INR 1.21 (0.8-3.0); PROTIME 13.7 SECONDS (9.95-12.35)
[2020-08-01 03:17] VITALS: O2SAT 100
[2020-08-01 03:27] VITALS: BP 121/69
--- NOTE | 2020-08-01 09:01 | XRAY ---
Indication: Chest pain and short of breath. Comparison: June 15, 2020. Portable chest unchanged again demonstrating bibasilar discoid atelectasis/scarring, tiny pulmonary/hilar calcified granulomas, cardiomegaly, and right double-lumen dialysis catheter. Bony thorax intact again with osteopenia and degenerative changes. No new/acute findings. Impression: Continued nonacute chest with chronic features.
== END 2020-08-01 03:50 | disposition short-term general hospital (02) ==
LOC: ED 22:50
DX: I21.4 Non-ST elevation (NSTEMI) myocardial infarction (principal); N18.4 Chronic kidney disease, stage 4 (severe); I50.9 Heart failure, unspecified; I10 Essential (primary) hypertension; I25.2 Old myocardial infarction; Z79.899 Other long term (current) drug therapy; Z79.01 Long term (current) use of anticoagulants
CPT/HCPCS: 36000; 36415; 71045; 80053; 83605; 83880; 84484; 85025; 85610; 87400; 93005; 93041; 94760; 96374; 96375; 99285; 99291; J2270; J2405

== ENCOUNTER 2020-10-01 03:51 | Emergency (ER) | payer MEDICARE ==
--- NOTE | 2020-10-01 04:23 | ERPHSYRPT ---
- History of Present Illness Time Seen by Provider: 10/01/20 04:00 Source: patient Exam Limitations: no limitations Patient Subjective Stated Complaint: pt fell and hit her head and back Triage Nursing Assessment: pt c/o falling in her apt, fell and hit her head and mid back, c/o sharp pain, no open areas or abrasions noted, no hematoma noted. P t arrived in c-collar. Physician History: Patient is a 59-year-old female lives independently presents to our ED for evaluation status post fall. Patient states she has not been able to sleep well last few days. Patient was walking through her apartment when she fell. Patient does not know why she fell. Patient is unsure whether or not she lost consciousness. Patient arrived via EMS collared nonboarded. Patient complains of neck pain and head pain. No chest pain. No shortness of breath. Patient admits that she has not been compliant with her medications. She has a history of end-stage renal disease. Patient dialysis sessions are Tuesday. Patient does produce urine. Patient voices no other complaints concerns at this time. Patient advises that she is on Coumadin however she has not regularly compliant with her medication regimen. Timing/Duration: today Severity: moderate Modifying Factors: Improves With: nothing Associated Symptoms: No nausea, No vomiting, No abdominal pain, No shortness of breath, No heartburn, No diaphoresis, No cough, No chills, No chest pain, No fever, No headaches, No syncope Allergies/Adverse Reactions: amoxicillin Allergy (Verified 10/01/20 04:03) unknown reaction oxytetracycline [From Terramycin] Allergy (Verified 10/01/20 04:03) oxytetracycline HCl [From Terramycin] Allergy (Verified 10/01/20 04:03) unknown reaction Penicillins Allergy (Verified 10/01/20 04:03) unknown reaction Home Medications: Doxepin HCl 10 mg PO HS 06/26/20 [History] PANTOPRAZOLE 40 mg Tablet [Protonix 40MG Tablet] 40 mg PO DAILY 06/26/20 [History] Pramipexole Di-HCl [Mirapex] 1 mg PO EVENING MEAL 06/26/20 [History] Warfarin Sodium 4 mg PO HS 06/26/20 [History] Hx Tetanus, Diphtheria Vaccination/Date Given: Yes Hx Influenza Vaccination/Date Given: Yes Hx Pneumococcal Vaccination/Date Given: No Immunizations Up to Date: Yes Travel Risk - International Travel Have you traveled outside of the country in past 3 weeks: No - Coronavirus Screening Are you exhibiting any of the following symptoms?: No Close contact with a COVID-19 positive Pt in past 14-21 Days: No - Review of Systems Constitutional: No Symptoms, No Fever, No Chills Eyes: No Symptoms Ears, Nose, & Throat: No Symptoms Respiratory: No Symptoms, No Cough, No Dyspnea Cardiac: No Symptoms, No Chest Pain, No Edema, No Syncope Abdominal/Gastrointestinal: No Symptoms, No Abdominal Pain, No Nausea, No Vomiting, No Diarrhea Genitourinary Symptoms: No Symptoms, No Dysuria Musculoskeletal: No Symptoms, No Back Pain, No Neck Pain Skin: No Symptoms, No Rash Neurological: No Symptoms, No Dizziness, No Focal Weakness, No Sensory Changes Psychological: No Symptoms Endocrine: No Symptoms Hematologic/Lymphatic: No Symptoms Immunological/Allergic: No Symptoms All Other Systems: Reviewed and Negative - Past Medical History Pertinent Past Medical History: Yes Neurological History: TIA ENT History: No Pertinent History Cardiac History: Aneurysm, Congestive Heart Failure, Hypertension, Myocardial Infarction (SD) Respiratory History: CHF, Pneumonia Endocrine Medical History: No Pertinent History Musculoskeletal History: Osteoporosis GI Medical History: GERD History: No Pertinent History Psycho-Social History: Anxiety, Depression Female Reproductive Disorders: Endometriosis Other Medical History: LUPUS ANTICOAGULANT DISORDER, GOUT, VENTRICULAR ARRHYTHMIA, CKD STAGE 4, OSTEOPOROSIS, HYPERGLYCEMIA, FRACTURE PATELLA 2016, dialysis MWF, restless leg syndrome - Past Surgical History Past Surgical History: Yes Neuro Surgical History: No Pertinent History Cardiac: Cardiac Stent Respiratory: No Pertinent History Gastrointestinal: No Pertinent History Genitourinary: Other Musculoskeletal: No Pertinent History Female Surgical History: Hysterectomy Other Surgical History: CARPAL TUNNEL-RIGHT WRIST, RIGHT FOOT. Dialysis catheter - Social History Smoking Status: Current every day smoker How long have you smoked: 46 years Exposure to second hand smoke: No Drug Use: marijuana Patient Lives Alone: Yes - Female History Hx Now: No - Nursing Vital Signs Nursing Vital Signs: Initial Vital Signs Temperature 97.7 F 10/01/20 03:56 Pulse Rate 84 10/01/20 03:56 Respiratory Rate 22 10/01/20 03:56 Blood Pressure 144/74 10/01/20 03:56 O2 Sat by Pulse Oximetry 98 10/01/20 03:56 Pain Scale Pain Intensity 10 - Physical Exam General Appearance: no apparent distress, alert, other (Cervical collar intact.) Eye Exam: PERRL/EOMI, eyes nml inspection Ears, Nose, Throat Exam: normal ENT inspection, TMs normal, pharynx normal, moist mucous membranes Neck Exam: normal inspection, non-tender, supple, full range of motion Respiratory Exam: normal breath sounds, lungs clear, No respiratory distress Cardiovascular Exam: regular rate/rhythm, normal heart sounds, normal peripheral pulses, other (Intact dialysis port.) Gastrointestinal/Abdomen Exam: soft, normal bowel sounds, No tenderness, No mass Back Exam: normal inspection, normal range of motion, No CVA tenderness, No v ertebral tenderness Extremity Exam: normal inspection, normal range of motion, pelvis stable Neurologic Exam: alert, oriented x 3, cooperative, normal mood/affect, nml cerebellar function, nml station & gait, sensation nml, No motor deficits Skin Exam: normal color, warm, dry, No rash Lymphatic Exam: No adenopathy SpO2 Interpretation: normal SpO2: 98 O2 Delivery: Room Air - Course Nursing assessment & vital signs reviewed: Yes EKG Interpreted by Me: RATE (83), Sinus Rhythm, NORMAL AXIS, NORMAL INTERVALS - CT Exams Cervical Spine CT Interpretation: Tele-radiologist Report (Right IJ catheter noted. Old right clavicular head fracture. Degenerative changes at C2 and C3 producing mild to moderate spinal canal stenosis. No acute fracture or malalignment of the cervical spine.) Head CT Interpretation: Tele-radiologist Report (Encephalomalacia, hyperostosis front isabela interna, no acute findings on CT head.) Ordered Tests: Active Orders 24 hr Category Date Time Status [employer] STAT Care 10/01/20 04:14 Active EKG-ER Only STAT Care 10/01/20 04:13 Active IV Insertion STAT Care 10/01/20 04:13 Active Pulse Oximetry (ED) STAT Care 10/01/20 04:13 Active CERVICAL SPINE WO CONTRAST [CT] Stat Exams 10/01/20 04:11 Taken HEAD WITHOUT CONTRAST [CT] Stat Exams 10/01/20 04:11 Taken CBC W DIFF Stat Lab 10/01/20 04:37 Completed CMP Stat Lab 10/01/20 04:37 Completed CULTURE,URINE Stat Lab 10/01/20 04:41 Received ETHYL ALCOHOL Stat Lab 10/01/20 04:37 Completed MAGNESIUM Stat Lab 10/01/20 04:37 Completed PROTIME WITH INR Stat Lab 10/01/20 04:37 Completed PTT Stat Lab 10/01/20 04:37 Completed TROPONIN Q3H Lab 10/01/20 04:37 Completed TROPONIN Q3H Lab 10/01/20 07:15 Ordered TROPONIN Q3H Lab 10/01/20 10:15 Ordered TROPONIN Q3H Lab 10/01/20 13:15 Ordered TROPONIN Q3H Lab 10/01/20 16:15 Ordered UA W/RFX UR CULTURE Stat Lab 10/01/20 04:41 Completed Urine Triage Profile Stat Lab 10/01/20 04:41 Completed Lab/Rad Data: Laboratory Result Diagrams 10/01/20 04:37 10/01/20 04:37 Laboratory Results 10/01/20 10/01/20 10/01/20 Range/Units 04:41 04:41 04:37 WBC (4.0-10.5) K/mm3 RBC (4.1-5.4) M/mm3 Hgb (12.0-16.0) gm/dl Hct (35-47) % MCV (78-100) fl MCH (26-32) pg MCHC (32-36) g/dl RDW (11.5-14.0) % Plt Count (150-450) K/mm3 MPV (7.5-11.0) fl Gran % (36.0-66.0) % Eos # (Auto) (0-0.5) Absolute Lymphs (auto) (1.0-4.6) Absolute Monos (auto) (0.0-1.3) Lymphocytes % (24.0-44.0) % Monocytes % (0.0-12.0) % Eosinophils % (0.00-5.0) % Basophils % (0.0-0.4) % Absolute Granulocytes (1.4-6.9) Basophils # (0-0.4) PT (9.95-12.35) SECONDS INR (0.8-3.0) APTT (25.3-37.0) SECONDS Sodium (137-145) mmol/L Potassium (3.5-5.1) mmol/L Chloride (98-107) mmol/L Carbon Dioxide (22-30) mmol/L Anion Gap (5-15) MEQ/L BUN (7-17) mg/dL Creatinine (0.52-1.04) mg/dL Estimated GFR ML/MIN Glucose (74-106) mg/dL Calcium (8.4-10.2) mg/dL Magnesium (1.6-2.3) mg/dL Total Bilirubin (0.2-1.3) mg/dL AST (14-36) U/L ALT (0-35) U/L Alkaline Phosphatase (38-126) U/L Troponin I 0.027 (0.000-0.034) ng/mL Serum Total Protein (6.3-8.2) g/dL Albumin (3.5-5.0) g/dL Urine Color YELLOW (YELLOW) Urine Appearance SLIGHTLY CLOUDY (CLEAR) Urine pH 8.0 (5-6) Ur Specific Edelstein 1.016 (1.005-1.025) Urine Protein 100 (Negative) Urine Ketones NEGATIVE (NEGATIVE) Urine Blood NEGATIVE (0-5) Shin/ul Urine Nitrite NEGATIVE (NEGATIVE) Urine Bilirubin NEGATIVE (NEGATIVE) Urine Urobilinogen NEGATIVE (0-1) mg/dL Ur Leukocyte Esterase TRACE (NEGATIVE) Urine WBC (Auto) 3-5 (0-5) /HPF Urine RBC (Auto) 0-2 (0-2) /HPF U Epithel Cells (Auto) NONE (FEW) /HPF Urine Bacteria (Auto) NONE (NEGATIVE) /HPF Urine Culture Reflexed YES (NO) Urine Glucose NEGATIVE (NEGATIVE) mg/dL Urine Opiates Level NEGATIVE (NEGATIVE) Ur Methadone NEGATIVE (NEGATIVE) Urine Barbiturates NEGATIVE (NEGATIVE) Ur Phencyclidine (PCP) NEGATIVE (NEGATIVE) Urine Amphetamine NEGATIVE (NEGATIVE) U Benzodiazepine Level NEGATIVE (NEGATIVE) Urine Cocaine NEGATIVE (NEGATIVE) Urine Marijuana (THC) NEGATIVE (NEGATIVE) Ethyl Alcohol (0-10) mg/dL 10/01/20 10/01/20 10/01/20 Range/Units 04:37 04:37 04:37 WBC 9.6 (4.0-10.5) K/mm3 RBC 3.34 L (4.1-5.4) M/mm3 Hgb 10.6 L (12.0-16.0) gm/dl Hct 33.6 L (35-47) % MCV 100.6 H (78-100) fl MCH 31.7 (26-32) pg MCHC 31.5 L (32-36) g/dl RDW 13.3 (11.5-14.0) % Plt Count 104 L (150-450) K/mm3 MPV 11.6 H (7.5-11.0) fl Gran % 68.0 H (36.0-66.0) % Eos # (Auto) 0.22 (0-0.5) Absolute Lymphs (auto) 2.24 (1.0-4.6) Absolute Monos (auto) 0.58 (0.0-1.3) Lymphocytes % 23.4 L (24.0-44.0) % Monocytes % 6.1 (0.0-12.0) % Eosinophils % 2.3 (0.00-5.0) % Basophils % 0.2 (0.0-0.4) % Absolute Granulocytes 6.50 (1.4-6.9) Basophils # 0.02 (0-0.4) PT 13.0 H (9.95-12.35) SECONDS INR 1.15 (0.8-3.0) APTT 56.8 H (25.3-37.0) SECONDS Sodium 136 L (137-145) mmol/L Potassium 3.7 (3.5-5.1) mmol/L Chloride 97 L (98-107) mmol/L Carbon Dioxide 27 (22-30) mmol/L Anion Gap 16.5 H (5-15) MEQ/L BUN 54 H (7-17) mg/dL Creatinine 3.76 H (0.52-1.04) mg/dL Estimated GFR 13.0 ML/MIN Glucose 96 (74-106) mg/dL Calcium 9.4 (8.4-10.2) mg/dL Magnesium 2.3 (1.6-2.3) mg/dL Total Bilirubin 0.40 (0.2-1.3) mg/dL AST 19 (14-36) U/L ALT 9 (0-35) U/L Alkaline Phosphatase 90 (38-126) U/L Troponin I (0.000-0.034) ng/mL Serum Total Protein 7.0 (6.3-8.2) g/dL Albumin 3.9 (3.5-5.0) g/dL Urine Color (YELLOW) Urine Appearance (CLEAR) Urine pH (5-6) Ur Specific Edelstein (1.005-1.025) Urine Protein (Negative) Urine Ketones (NEGATIVE) Urine Blood (0-5) Shin/ul Urine Nitrite (NEGATIVE) Urine Bilirubin (NEGATIVE) Urine Urobilinogen (0-1) mg/dL Ur Leukocyte Esterase (NEGATIVE) Urine WBC (Auto) (0-5) /HPF Urine RBC (Auto) (0-2) /HPF U Epithel Cells (Auto) (FEW) /HPF Urine Bacteria (Auto) (NEGATIVE) /HPF Urine Culture Reflexed (NO) Urine Glucose (NEGATIVE) mg/dL Urine Opiates Level (NEGATIVE) Ur Methadone (NEGATIVE) Urine Barbiturates (NEGATIVE) Ur Phencyclidine (PCP) (NEGATIVE) Urine Amphetamine (NEGATIVE) U Benzodiazepine Level (NEGATIVE) Urine Cocaine (NEGATIVE) Urine Marijuana (THC) (NEGATIVE) Ethyl Alcohol < 10 (0-10) mg/dL - Progress Progress: improved Progress Note: Patient reassessed. She feels well. Patient requesting discharge. At this point we are not clear why patient fell at home. We planned on admitting patient. Case discussed with Dr. Briceno who advised discharge. Patient wants to go home. Per patient's request and advised we will discharge patient home. CT head negative for acute pathology. CT cervical spine negative for acute pathology. Repeat neuro exam essentially nonremarkable. Patient has end-stage renal disease. On dialysis. Patient has not missed any dialysis sessions. Potassium is within normal limits. Patient agrees to follow-up with primary care doctor within 48 hours for reevaluation. 10/01/20 06:17 Discussed with : Sohan Will see patient in: other Counseled pt/family regarding: lab results, diagnosis, need for follow-up, rad results - Departure Departure Disposition: Home Clinical Impression: Fall, Non compliance w medication regimen, ESRD (end stage renal disease), Mignon aloblastic anemia, Thrombocytopenia, Cervical stenosis of spinal canal, Encephalomalacia, Hyperostosis frontalis interna Condition: Stable Critical Care Time: No Referrals: ERNESTINE MARQUEZ MD [Primary Care Provider] - Additional Instructions: Discharge/Care Plan BRIDGER HOWE was seen on 10/01/20 in the Emergency Room. The patient was counseled regarding Diagnosis,Lab results, Imaging studies, need for follow up and when to return to the Emergency Room. Prescriptions given: Discharge Note I have spoken with the patient and/or caregivers. I have explained the patient's condition, diagnosis and treatment plan based on the information available to me at this time. I have answered the patient's and/or caregiver's questions and addressed any concerns. The patient and/or caregivers have as good understanding of the patient's diagnosis, condition and treatment plan as can be expected at this point. The vital signs have been stable. The patient's condition is stable and appropriate for discharge from the emergency department. The patient will pursue further outpatient evaluation with the primary care physician or other designated or consulting physician as outlined in the discharge instructions. The patient and/or caregivers are agreeable to this plan of care and follow-up instructions have been explained in detail. The patient and/or caregivers have received these instruction. The patient/and or caregivers are aware that any significant change in condition or worsening of symptoms should prompt an immediate return to this or the closest emergency department or call 911.
[2020-10-01 04:56] LABS: BASOPHIL % 0.2 % (0.0-0.4); Basophil (Absolute #) 0.02 (0-0.4); Eosinophil % 2.3 % (0.00-5.0); Eosinophil (Absolute #) 0.22 (0-0.5); Hematocrit 33.6 % (35-47); Hemoglobin 10.6 gm/dl (12.0-16.0); Lymphocyte (Absolute #) 2.24 (1.0-4.6); Lymphocytes % 23.4 % (24.0-44.0); Mean Cell Volume 100.6 fl (78-100); Mean Corpuscular Hemoglobin 31.7 pg (26-32); Mean Corpuscular Hgb Concent. 31.5 g/dl (32-36); Mean Platelet Volume 11.6 fl (7.5-11.0); Monocyte (Absolute #) 0.58 (0.0-1.3); Monocytes % 6.1 % (0.0-12.0); Platelet Count 104 K/mm3 (150-450); Red Blood Count 3.34 M/mm3 (4.1-5.4); Red Cell Distribution Width 13.3 % (11.5-14.0); White Blood Count 9.6 K/mm3 (4.0-10.5)
[2020-10-01 05:01] LABS: INR 1.15 (0.8-3.0)
[2020-10-01 05:03] LABS: PTT 56.8 SECONDS (25.3-37.0)
[2020-10-01 05:06] LABS: ALBUMIN 3.9 g/dL (3.5-5.0); ALKALINE PHOSPHATASE 90 U/L (38-126); ANION GAP 16.5 MEQ/L (5-15); BLOOD UREA NITROGEN 54 mg/dL (7-17); CHLORIDE 97 mmol/L (98-107); Calcium 9.4 mg/dL (8.4-10.2); Carbon Dioxide 27 mmol/L (22-30); Creatinine 1 3.76 mg/dL (0.52-1.04); ETHYL ALCOHOL < 10 mg/dL (0-10); Glucose 96 mg/dL (74-106); MAGNESIUM 2.3 mg/dL (1.6-2.3); Potassium 3.7 mmol/L (3.5-5.1); SGOT/AST 19 U/L (14-36); SGPT/ALT 9 U/L (0-35); SODIUM 136 mmol/L (137-145)
[2020-10-01 05:22] LABS: Appearance SLIGHTLY CLOUDY (CLEAR); Bilirubin NEGATIVE (NEGATIVE); Blood NEGATIVE Ery/ul (0-5); Glucose NEGATIVE (NEGATIVE); Ketones NEGATIVE (NEGATIVE); Leukocyte Esterase TRACE (NEGATIVE); Nitrite NEGATIVE (NEGATIVE); Protein,Urine Dip 100 (Negative); RBC 0-2 /HPF (0-2); Specific Gravity 1.016 (1.005-1.025); Urobilinogen NEGATIVE mg/dL (0-1)
[2020-10-01 05:35] LABS: Amphetamine,Urine NEGATIVE (NEGATIVE); Barbiturate,Urine NEGATIVE (NEGATIVE); Benzodiazepine,Urine NEGATIVE (NEGATIVE); Cocaine,Urine NEGATIVE (NEGATIVE); Methadone,Urine NEGATIVE (NEGATIVE); Opiate,Urine NEGATIVE (NEGATIVE); PCP,Urine NEGATIVE (NEGATIVE); THC,Urine NEGATIVE (NEGATIVE)
[2020-10-01 06:05] VITALS: BP 127/58
[2020-10-01 07:16] VITALS: PULSE 83; O2SAT 100
--- NOTE | 2020-10-01 09:03 | XRAY ---
Indication: Pain following fall. Multiple contiguous axial images obtained through the head without contrast. Comparison: March 02, 2020. 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 No acute intracranial hemorrhage, hydrocephalus, or mass effect. Fourth ventricle is midline. Small left occipital scalp hematoma. Bony calvarium intact. Visualized paranasal sinuses and mastoid air cells are clear. Impression: 1. Small left occipital scalp hematoma. No underlying fracture or acute intracranial abnormalities. 2. Stable atrophy, degenerative micro-ischemia, and old bilateral occipital infarcts. Comment: Preliminary interpretation was made by [facility]. No critical discrepancy.
--- NOTE | 2020-10-01 09:09 | XRAY ---
Indication: Head and neck pain following fall. Multiple contiguous images obtained through the cervical spine. Sagittal and coronal reformatted images obtained. Comparison: March 02, 2020. Axial images through the cervical spine remain negative for acute fracture, suspicious bony lesions, or spinal canal stenosis. Stable mild multilevel degenerative facet hypertrophy. New finding nondisplaced partial healing right clavicle head fracture. Sagittal and coronal reformatted images again demonstrates normal alignment with vertebral body heights/disc spaces maintained. No acute compression fracture, subluxation, or jumped facet. Normal appearing craniocervical junction. Visualized noncontrasted soft tissues again demonstrates scattered carotid calcifications bilaterally, benign chunky right thyroid calcification, and incompletely visualized right dialysis catheter. Impression: 1. New healing nondisplaced right clavicle head fracture. 2. Negative for cervical fracture/subluxation. 3. Stable multilevel degenerative facet hypertrophy and benign right thyroid calcification. Comment: Preliminary interpretation was made by [facility]. No critical discrepancy.
== END 2020-10-01 07:16 | disposition home or self-care (01) ==
LOC: ED 03:51
DX: R51.9 Headache, unspecified (principal); M54.2 Cervicalgia; W18.30XA Fall on same level, unspecified, initial encounter; Y93.01 Activity, walking, marching and hiking; Y92.009 Unspecified place in unspecified non-institutional (private) residence as the place of occurrence of the external cause; I12.0 Hypertensive chronic kidney disease with stage 5 chronic kidney disease or end stage renal disease; N18.6 End stage renal disease; Z91.19 Patient's noncompliance with other medical treatment and regimen; D53.1 Other megaloblastic anemias, not elsewhere classified; D69.6 Thrombocytopenia, unspecified; M48.00 Spinal stenosis, site unspecified; G93.89 Other specified disorders of brain; M85.80 Other specified disorders of bone density and structure, unspecified site; Z86.73 Personal history of transient ischemic attack (TIA), and cerebral infarction without residual deficits; I50.9 Heart failure, unspecified; M81.0 Age-related osteoporosis without current pathological fracture; Z72.0 Tobacco use
CPT/HCPCS: 36000; 36415; 70450; 71100; 72125; 73502; 80053; 80307; 81001; 83735; 84484; 85025; 85610; 85730; 87086; 93005; 93041; 94760; 99284; G0480; A9270-GY

== ENCOUNTER 2020-10-01 18:53 | Emergency (ER) | payer MEDICARE ==
[2020-10-01] MEDS ORDERED: PERCOCET TABLET 5/325MG PO ONE (19:40)
[2020-10-01] MEDS ORDERED: PERCOCET TABLET 5/325MG ONE (19:41)
--- NOTE | 2020-10-01 19:45 | ERPHSYRPT ---
- History of Present Illness Time Seen by Provider: 10/01/20 18:58 Historian: patient Exam Limitations: no limitations Patient Subjective Stated Complaint: Pt c/o of pain below her right hip, pt was discharged this AM from this ER due to a fall and Dr. Briceno stated that she did not need to be admitted and so she was discharged Triage Nursing Assessment: Pt brought to ER by EMS, vitals wnl, rates pain as 5/10, reports being in pain off and on all day since she was discharged, pulses normal, skin n/w/d, pt states that she went to dialysis today Physician History: 59 years old female with multiple medical problems including end-stage renal disease on dialysis 3 times a week who was evaluated in the ER earlier this morning for fall with head and neck pain with negative CTs for acute pathology and was discharged presented back with pain right nostril lateral mid chest and right hip with movements and palpation small, moderate intensity, sharp nature without any obvious difficulty breathing. Denies any abdominal pain nausea or vomiting. Patient reports she cannot take this pain and needs some pain medication. Her head and neck pain are better. No numbness tingling or weakness. Denies any dizziness or lightheadedness. Timing/Duration: today, sudden, worse Quality: sharpness Severity of Pain-Max: moderate Severity of Pain-Current: moderate Modifying Factors: Worsens With: coughing, movement, palpation Associated Symptoms: back pain Nitro Today/Relief: no nitro taken today Aspirin Treatment Today: no aspirin today Allergies/Adverse Reactions: amoxicillin Allergy (Verified 10/01/20 04:03) unknown reaction oxytetracycline [From Terramycin] Allergy (Verified 10/01/20 04:03) oxytetracycline HCl [From Terramycin] Allergy (Verified 10/01/20 04:03) unknown reaction Penicillins Allergy (Verified 10/01/20 04:03) unknown reaction Home Medications: Doxepin HCl 10 mg PO HS 06/26/20 [History] PANTOPRAZOLE 40 mg Tablet [Protonix 40MG Tablet] 40 mg PO DAILY 06/26/20 [History] Pramipexole Di-HCl [Mirapex] 1 mg PO EVENING MEAL 06/26/20 [History] Warfarin Sodium 4 mg PO HS 06/26/20 [History] Hx Tetanus, Diphtheria Vaccination/Date Given: Yes Hx Influenza Vaccination/Date Given: Yes Hx Pneumococcal Vaccination/Date Given: No Travel Risk - International Travel Have you traveled outside of the country in past 3 weeks: No - Coronavirus Screening Are you exhibiting any of the following symptoms?: No Close contact with a COVID-19 positive Pt in past 14-21 Days: No - Review of Systems Constitutional: No Symptoms Eyes: No Symptoms Ears, Nose, & Throat: No Symptoms Respiratory: No Symptoms Cardiac: Chest Pain Abdominal/Gastrointestinal: No Symptoms Genitourinary Symptoms: No Symptoms Musculoskeletal: Fall Skin: No Symptoms Neurological: No Symptoms Psychological: No Symptoms Endocrine: No Symptoms Hematologic/Lymphatic: No Symptoms Immunological/Allergic: No Symptoms - Past Medical History Pertinent Past Medical History: Yes Neurological History: TIA ENT History: No Pertinent History Cardiac History: Aneurysm, Congestive Heart Failure, Hypertension, Myocardial Infarction (OR) Respiratory History: CHF, Pneumonia Endocrine Medical History: No Pertinent History Musculoskeletal History: Osteoporosis GI Medical History: GERD History: No Pertinent History Psycho-Social History: Anxiety, Depression Female Reproductive Disorders: Endometriosis Other Medical History: LUPUS ANTICOAGULANT DISORDER, GOUT, VENTRICULAR ARRHYTHMIA, CKD STAGE 4, OSTEOPOROSIS, HYPERGLYCEMIA, FRACTURE PATELLA 2016, dialysis MWF, restless leg syndrome - Past Surgical History Past Surgical History: Yes Neuro Surgical History: No Pertinent History Cardiac: Cardiac Stent Respiratory: No Pertinent History Gastrointestinal: No Pertinent History Genitourinary: Other Musculoskeletal: No Pertinent History Female Surgical History: Hysterectomy Other Surgical History: CARPAL TUNNEL-RIGHT WRIST, RIGHT FOOT. Dialysis catheter - Social History Smoking Status: Current every day smoker How long have you smoked: 46 years Exposure to second hand smoke: No Drug Use: marijuana Patient Lives Alone: Yes - Female History Hx Now: No - Nursing Vital Signs Nursing Vital Signs: Initial Vital Signs Temperature 97.9 F 10/01/20 18:55 Pulse Rate 94 H 10/01/20 18:55 Blood Pressure 116/65 10/01/20 18:55 O2 Sat by Pulse Oximetry 96 10/01/20 18:55 Pain Scale Pain Intensity [Right Lateral 5 Hip] Pain Intensity 7 - Physical Exam General Appearance: no apparent distress, alert Eye Exam: PERRL/EOMI, eyes nml inspection Ears, Nose, Throat Exam: normal ENT inspection, TMs normal, pharynx normal Neck Exam: normal inspection, non-tender, supple, full range of motion Respiratory Exam: normal breath sounds, chest tenderness (Right mid posterior lateral chest wall), lungs clear Cardiovascular Exam: regular rate/rhythm, normal heart sounds Gastrointestinal/Abdomen Exam: soft, normal bowel sounds, No tenderness Back Exam: normal inspection, other (Pain right hip area. 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, sensation nml, No motor deficits Skin Exam: normal color SpO2 Interpretation: normal SpO2: 96 O2 Delivery: Room Air Ordered Tests: Active Orders 24 hr Category Date Time Status HIP UNI (2V) INCL PEL IF DONE Stat Exams 10/01/20 20:26 Taken RIBS UNILATERAL Stat Exams 10/01/20 20:26 Taken Medication Summary Discontinued Medications Generic Name Dose Route Start Last Admin Trade Name Sergey PRN Reason Stop Dose Admin Hydrocodone Bitart/Acetaminophen 2 tab 10/01/20 21:08 10/01/20 21:10 [place] 5/325 Mg PO 10/01/20 21:09 2 tab SENT HOME W/ PATIENT ONE Administration Hydrocodone Bitart/Acetaminophen Confirm 10/01/20 21:07 [place] 5/325 Mg Administered 10/01/20 21:08 Dose 2 tab .ROUTE .STK-MED ONE Oxycodone/Acetaminophen 1 tab 10/01/20 19:40 10/01/20 19:42 Percocet Tablet 5/325mg PO 10/01/20 19:41 1 tab STAT ONE Administration Oxycodone/Acetaminophen Confirm 10/01/20 19:41 Percocet Tablet 5/325mg Administered 10/01/20 19:42 Dose 1 tab .ROUTE .STK-MED ONE - Progress Progress: improved, re-examined Air Movement: good Progress Note: 10/01/20 21:08 59 years old was evaluated this morning for headache and neck pain with negative CTs and was discharged presented back and evaluated for right mid to lower chest wall pain and right hip pain. She is given oral pain medication, on reevaluation feeling better. I have obtained rib series which showed nondisplaced 10th rib fracture and no acute osseous finding in the x-rays right hip. Patient had negative work-up otherwise this morning and has no difficulty breathing, no vomiting or diarrhea or any other new complaint. I do not think she needs to repeat any blood work and is given pain medication to take as needed and outpatient follow-up recommended. Discussed signs symptoms of worsening needing return to ER which she seems understanding. Blood Culture(s) Obtained: No Antibiotics given: No Counseled pt/family regarding: diagnosis, need for follow-up, rad results - Departure Departure Disposition: Home Clinical Impression: Closed rib fracture, Fall Condition: Stable Critical Care Time: No Referrals: ERNESTINE MARQUEZ MD [Primary Care Provider] - (1-2 days for reevaluation) Instructions: Rib Fracture (DC) Additional Instructions: Take pain medications as needed. Do deep breathing exercises. Use cane or walker for ambulation to avoid another fall. Keep appointment for your dialysis. Follow-up with primary care for reevaluation. Return to ER for worsening pain or if have difficulty breathing, abdominal pain nausea vomiting etc. Prescriptions: Hydrocodone/APAP 5/325 [[place] 5/325 mg] 1 each PO Q6H PRN PRN 3 Days #12 tablet MDD 4 PRN Reason: Pain
[2020-10-01 21:07] VITALS: BP 120/54; PULSE 68
[2020-10-01] MEDS ORDERED: NORCO 5/325 MG ONE (21:07)
[2020-10-01] MEDS ORDERED: NORCO 5/325 MG PO ONE (21:08)
[2020-10-01 21:12] VITALS: O2SAT 96
--- NOTE | 2020-10-02 08:45 | XRAY ---
Indication: Pain following fall. Comparison: October 05, 2019. 2 view right ribs demonstrates new nondisplaced 10th rib fracture without pneumo/hemothorax. Also new right large bore dialysis catheter. Stable osteopenia, multilevel degenerative spondylosis, AC degenerative arthropathy, right lung base subsegmental atelectasis/scarring, pulmonary/mediastinal calcified granulomas, and aortic calcifications.
--- NOTE | 2020-10-02 08:47 | XRAY ---
Indication: Right hip pain following fall. Comparison: July 12, 2019. AP pelvis and 2 view right hip again demonstrates osteopenia and heavy scattered vascular calcifications. No new/acute bony, articular, or soft tissue abnormalities.
== END 2020-10-01 21:35 | disposition home or self-care (01) ==
LOC: ED 18:53
DX: S22.31XA Fracture of one rib, right side, initial encounter for closed fracture (principal); M25.551 Pain in right hip; R07.89 Other chest pain; I12.9 Hypertensive chronic kidney disease with stage 1 through stage 4 chronic kidney disease, or unspecified chronic kidney disease; N18.4 Chronic kidney disease, stage 4 (severe); Z99.2 Dependence on renal dialysis; Z91.15 Patient's noncompliance with renal dialysis; I25.2 Old myocardial infarction; M83.8 Other adult osteomalacia; Z72.0 Tobacco use; F12.90 Cannabis use, unspecified, uncomplicated
CPT/HCPCS: 71100; 73502; 99284; A9270-GY

== ENCOUNTER 2020-10-06 04:54 | Emergency (ER) | payer MEDICARE ==
[2020-10-06] MEDS: HYDROCODONE-ACETAMIN 10-325 MG PO STA (05:20)
[2020-10-06 06:09] VITALS: O2SAT 97
--- NOTE | 2020-10-06 06:51 | ERPHSYRPT ---
- History of Present Illness Patient Subjective Stated Complaint: Patient states " I called 911 because I am in so much pain on my right side I can't stand it and I wasn't sure what medicine was my pain meds". Triage Nursing Assessment: Patient arrived to ED per EMS. Patient one assist with transfer to bed. Patient A/O times 4. Patient able to answer questions without difficulty. Patient unable to tell medical writer when the last time she took her meds. Lungs diminished A/P throughout. Patient denies chest pain. Patient denies SOB. Patient was recently in ER times 2 on 10/01/20 R/T fall at home and patient with FX right 10th rib and healing clavicle FX. Patient was sent home with pain meds and patient states she hasn't taken any because she didn't know which one to take. Patient noted to be in same hospital gown from her visit on the . Patient hasn't changed clothes since. + BS times 4 quads. ABD soft, round, non-distended. Patient with pain and tenderness when RN touches right upper side. Patient noted with dialysis port left chest. Patient noted with non- pitting edema in bilateral lower extremities. + Pedal and radial pulses noted. Patient with HX of falls. Patient with limited ROM to right side R/T pain. Left side WNL. Patient denies any fall since last fall on 10/01/20. Occurred: days ago (5) Injuries/Pain Location: chest Loss of Consciousness: no loss of consciousness Quality: sharpness, stabbing, throbbing Severity of Pain-Max: severe Severity of Pain-Current: moderate Modifying Factors: Improves With: movement Associated Symptoms (Fall): chest pain Hx Tetanus, Diphtheria Vaccination/Date Given: Yes Hx Influenza Vaccination/Date Given: Yes Hx Pneumococcal Vaccination/Date Given: No Immunizations Up to Date: Yes - History of Present Illness Time Seen by Provider: 10/06/20 05:25 Physician History: Patient is a 59-year-old dialysis patient who suffered a fall on the was seen in the ER at that time complaining of head and neck pain had a CT of her head a CT of her neck both of which were essentially negative she returned within 24 hours on the complaining of pain in the right side of the chest x-rays at that time revealed a nondisplaced fracture acute of the right 10th rib and also a new fracture of the right clavicular head. She was treated with [place] 11/10/2024's and discharged home she returns this morning with a complaint of severe pain. She denies shortness of breath cough fever chills or sweats but says she is hurting bad. (HELEN MITCHELL) Allergies/Adverse Reactions: amoxicillin Allergy (Verified 10/06/20 05:09) unknown reaction oxytetracycline [From Terramycin] Allergy (Verified 10/06/20 05:09) oxytetracycline HCl [From Terramycin] Allergy (Verified 10/06/20 05:09) unknown reaction Penicillins Allergy (Verified 10/06/20 05:09) unknown reaction Home Medications: Pramipexole Di-HCl [Mirapex] 1 mg PO EVENING MEAL 06/26/20 [History] RX: Doxepin HCl 10 mg PO HS 06/26/20 [History] RX: PANTOPRAZOLE 40 mg Tablet [Protonix 40MG Tablet] 40 mg PO DAILY 06/26/20 [History] RX: Warfarin Sodium 4 mg PO HS 06/26/20 [History] Travel Risk - International Travel Have you traveled outside of the country in past 3 weeks: No - Coronavirus Screening Are you exhibiting any of the following symptoms?: No Close contact with a COVID-19 positive Pt in past 14-21 Days: No - Review of Systems Constitutional: No Fever, No Chills Eyes: No Symptoms Ears, Nose, & Throat: No Symptoms Respiratory: No Cough, No Dyspnea Cardiac: No Chest Pain, No Edema, No Syncope Abdominal/Gastrointestinal: No Abdominal Pain, No Nausea, No Vomiting, No Diarrhea Genitourinary Symptoms: No Dysuria Musculoskeletal: No Back Pain, No Neck Pain Skin: No Rash Neurological: No Dizziness, No Focal Weakness, No Sensory Changes Psychological: No Symptoms Endocrine: No Symptoms All Other Systems: Reviewed and Negative - Past Medical History Pertinent Past Medical History: Yes Neurological History: TIA ENT History: No Pertinent History Cardiac History: Aneurysm, Congestive Heart Failure, Hypertension, Myocardial Infarction ([place]) Respiratory History: CHF, Pneumonia Endocrine Medical History: No Pertinent History Musculoskeletal History: Osteoporosis GI Medical History: GERD History: No Pertinent History Psycho-Social History: Anxiety, Depression Female Reproductive Disorders: Endometriosis Other Medical History: LUPUS ANTICOAGULANT DISORDER, GOUT, VENTRICULAR ARRHYTHMIA, CKD STAGE 4, OSTEOPOROSIS, HYPERGLYCEMIA, FRACTURE PATELLA 2016, Dialysis MWF, Restless Leg Syndrome - Past Surgical History Past Surgical History: Yes Neuro Surgical History: No Pertinent History Cardiac: Cardiac Stent Respiratory: No Pertinent History Gastrointestinal: No Pertinent History Genitourinary: Other Musculoskeletal: No Pertinent History Female Surgical History: Hysterectomy Other Surgical History: CARPAL TUNNEL-RIGHT WRIST, RIGHT FOOT. Dialysis catheter - Social History Smoking Status: Current every day smoker How long have you smoked: 46 years Exposure to second hand smoke: No Drug Use: marijuana Patient Lives Alone: Yes - Female History Hx Last Menstrual Period: POST - [place] Coma Score Best Eye Response ([place]): (4) open spontaneously Best Verbal Response ([place]): (5) oriented Best Motor Response ([place]): (6) obeys commands [place] Total: 15 - Physical Exam General Appearance: moderate distress, alert Head Injury: no evidence of injury Eye Exam: PERRL/EOMI ENT Exam: airway nml Neck Exam: normal inspection, No tenderness Respiratory/Chest Exam: chest tenderness, normal breath sounds, rib tenderness (10th rib), No respiratory distress Cardiovascular Exam: normal heart sounds, regular rate/rhythm Gastrointestinal Exam: soft, No tenderness, No distention, No guarding, No ecchymosis Back Exam: normal inspection, No vertebral tenderness Extremity Exam: normal inspection, normal range of motion, pelvis stable, No deformities Peripheral Pulses: carotid (R): 2+, carotid (L): 2+ Neurologic Exam: alert, oriented x 3, cooperative, sensation nml, No motor deficits Skin Exam: normal color, warm, dry SpO2 Interpretation: normal SpO2: 97 O2 Delivery: Room Air - Nursing Vital Signs Nursing Vital Signs: Initial Vital Signs Temperature 97.4 F 10/06/20 05:08 Pulse Rate 78 10/06/20 05:08 Respiratory Rate 20 10/06/20 05:08 Blood Pressure 142/74 10/06/20 05:08 O2 Sat by Pulse Oximetry 99 10/06/20 05:08 Pain Scale Pain Intensity 9 - Course Nursing assessment & vital signs reviewed: Yes Ordered Tests: Active Orders 24 hr Category Date Time Status CHEST WITHOUT CONTRAST [CT] Stat Exams 10/06/20 05:13 Taken Medication Summary Discontinued Medications Generic Name Dose Route Start Last Admin Trade Name Freq PRN Reason Stop Dose Admin Hydrocodone Bitart/Acetaminophen 1 tablet 10/06/20 05:37 10/06/20 05:20 Hydrocodone-Acetamin 10-325 Mg PO 10/06/20 05:38 1 tablet Q4H PRN STA Administration - Progress Progress: improved, pain not gone completely, re-examined Counseled pt/family regarding: diagnosis, need for follow-up, rad results - Progress Progress Note: 10/06/20 07:13 CAT scan of the chest without contrast shows a persistent acute nondisplaced fracture of the right 10th and 11th ribs. This was present on CAT scan dated 10/01/2020. There is a healed sternal fracture and healed/buckled rib fracture bilaterally there is also possible acute nondisplaced fractures of the anterior right fifth or anterior left sixth rib. There is no pneumothorax. Medical decision making: This patient returns for her third visit since her initial visit on October 01, 2020. I am not sure that this patient is understanding that when she has pain she is to use her pain medicine as prescribed. She did not take her pain medicine because she stated she was not sure which when she was supposed to take. Patient has the persistent rib fractures as described above. I did explain to her that she is going to have pain for several weeks. I recommended that she call her primary care doctor or any pain specialist today to make arrangements for follow-up appointment so that she does not run out of her pain medication. She will require this, I believe, for the next 2 to 3 weeks. (HELEN MITCHELL) - Departure Departure Disposition: Home Critical Care Time: No - Departure Clinical Impression: Rib fractures, Closed rib fracture Condition: Stable Referrals: ERNESTINE MARQUEZ MD [Primary Care Provider] - Additional Instructions: Take your pain medicine as prescribed. Call your primary care physician and any pain specialist today to make arrangements for follow-up appointment and to manage your outpatient pain.
[2020-10-06 08:23] VITALS: PULSE 72
--- NOTE | 2020-10-06 09:07 | XRAY ---
Indication: Right 10th rib fracture on recent radiograph. Increasing pain. Multiple contiguous axial images obtained through the chest without contrast. Comparison: March 02, 2020. Lungs again demonstrates mild bilateral dependent atelectasis less than before. New bibasilar subsegmental atelectasis. Stable bibasilar calcified granulomas. No infiltrate, effusion, or pneumothorax. Heart remains enlarged. Aorta remains mildly etcher sclerotic without aneurysm. Stable right large bore dialysis catheter and small bilateral hilar calcified nodes. No pathologic mediastinal lymphadenopathy. Bony thorax demonstrates new nondisplaced right anterolateral 6th and posterior right 10th/11th rib fractures. Old sternum fracture not previously reported. Stable minimal degenerative changes throughout the spine, T10 vertebral hemangioma, and T11 Schmorl node. Limited upper abdomen again demonstrates splenic calcified granulomas. Impression: 1. New right 6th/10th/11th acute rib fractures without hemothorax/pneumothorax. 2. Stable cardiomegaly without CHF, right dialysis catheter, old granulomatous disease, and chronic bony findings. Comment: Preliminary interpretation was made by [facility]. No critical discrepancy.
[2020-10-06 09:20] VITALS: BP 129/66
[2020-10-06] MEDS ORDERED: NORCO 5/325 MG ONE (09:45)
[2020-10-06] MEDS: NORCO 5/325 MG PO ONE (09:46)
== END 2020-10-06 09:54 | disposition home or self-care (01) ==
LOC: ED 04:54
DX: S22.31XA Fracture of one rib, right side, initial encounter for closed fracture (principal); S42.001A Fracture of unspecified part of right clavicle, initial encounter for closed fracture; R51.9 Headache, unspecified; M54.2 Cervicalgia; W19.XXXA Unspecified fall, initial encounter; I50.9 Heart failure, unspecified; I10 Essential (primary) hypertension; I25.2 Old myocardial infarction; Z99.2 Dependence on renal dialysis
CPT/HCPCS: 71250; 99284; A9270-GY

== ENCOUNTER 2020-10-07 18:04 | Emergency (ER) | payer MEDICARE ==
--- NOTE | 2020-10-07 18:55 | ERPHSYRPT ---
- History of Present Illness Source: patient, EMS Exam Limitations: no limitations Patient Subjective Stated Complaint: Fall-right hip and right hand pain Triage Nursing Assessment: Patient brought back to ED via EMS and transferred to bed with assist of 3. Patient A+O X3. Patient's skin pink, warm and dry. Patient complains of fall prior to coming into ED where she tripped on her shoes causing her to land on her right hip and right hand. No shortening or external/internal rotation noted. No bruising or visible injuries noted. Physician History: 59 yo wf w R hip/R hand pain after falling in lobby in her apartment building. She denies LOC/DUEÑAS/C-Tspine pain. Pain is 10 on scale. Pt denies syncope/chest pain/dyspnea/melena/hematochezia. Occurred: just prior to arrival Reason for Fall: tripped (Tripped on her flip flop) Injuries/Pain Location: lower extremity (R hip/R hand) Loss of Consciousness: no loss of consciousness Quality: aching Severity of Pain-Max: severe Severity of Pain-Current: severe Modifying Factors: Improves With: movement Associated Symptoms (Fall): extremity injury, No abdominal pain, No back pain, No confusion, No chest pain, No dizziness, No headache, No lightheadedness, No muscle spasms, No nausea, No neck pain, No ringing in ears, No seizures, No shortness of breath, No slurred speech, No trouble walking, No vomiting, No vision changes Allergies/Adverse Reactions: amoxicillin Allergy (Verified 10/07/20 18:09) unknown reaction oxytetracycline [From Terramycin] Allergy (Verified 10/07/20 18:09) oxytetracycline HCl [From Terramycin] Allergy (Verified 10/07/20 18:09) unknown reaction Penicillins Allergy (Verified 10/07/20 18:09) unknown reaction Home Medications: Doxepin HCl 10 mg PO HS 06/26/20 [History] PANTOPRAZOLE 40 mg Tablet [Protonix 40MG Tablet] 40 mg PO DAILY 06/26/20 [History] Pramipexole Di-HCl [Mirapex] 1 mg PO EVENING MEAL 06/26/20 [History] Warfarin Sodium 4 mg PO HS 06/26/20 [History] Hx Tetanus, Diphtheria Vaccination/Date Given: Yes Hx Influenza Vaccination/Date Given: Yes Hx Pneumococcal Vaccination/Date Given: No Travel Risk - International Travel Have you traveled outside of the country in past 3 weeks: No - Coronavirus Screening Are you exhibiting any of the following symptoms?: No Close contact with a COVID-19 positive Pt in past 14-21 Days: No - Vaccine Status Have you recieved a Covid-19 vaccination: Yes Associate Brand Manager: Unknown - Vaccination Dates Dates if Unknown: unknown - Review of Systems Constitutional: No Symptoms Eyes: No Symptoms Ears, Nose, & Throat: No Symptoms Respiratory: No Symptoms Cardiac: No Symptoms Abdominal/Gastrointestinal: No Symptoms Genitourinary Symptoms: No Symptoms Musculoskeletal: Arthralgias Skin: No Symptoms Neurological: No Symptoms Psychological: No Symptoms Endocrine: No Symptoms Hematologic/Lymphatic: No Symptoms Immunological/Allergic: No Symptoms - Past Medical History Pertinent Past Medical History: Yes Neurological History: TIA ENT History: No Pertinent History Cardiac History: Aneurysm, Congestive Heart Failure, Hypertension, Myocardial Infarction ([place]) Respiratory History: CHF, Pneumonia Endocrine Medical History: No Pertinent History Musculoskeletal History: Osteoporosis GI Medical History: GERD History: No Pertinent History Psycho-Social History: Anxiety, Depression Female Reproductive Disorders: Endometriosis Other Medical History: LUPUS ANTICOAGULANT DISORDER, GOUT, VENTRICULAR ARRHYTHMIA, CKD STAGE 4, OSTEOPOROSIS, HYPERGLYCEMIA, FRACTURE PATELLA 2016, Dialysis MWF, Restless Leg Syndrome - Past Surgical History Past Surgical History: Yes Neuro Surgical History: No Pertinent History Cardiac: Cardiac Stent Respiratory: No Pertinent History Gastrointestinal: No Pertinent History Genitourinary: Other Musculoskeletal: No Pertinent History Female Surgical History: Hysterectomy Other Surgical History: CARPAL TUNNEL-RIGHT WRIST, RIGHT FOOT. Dialysis catheter - Social History Smoking Status: Current every day smoker How long have you smoked: 46 years Exposure to second hand smoke: No Drug Use: marijuana Patient Lives Alone: Yes - Female History Hx Now: No - Nursing Vital Signs Nursing Vital Signs: Initial Vital Signs Temperature 98.0 F 10/07/20 18:10 Pulse Rate 78 10/07/20 18:10 Respiratory Rate 18 10/07/20 18:10 Blood Pressure 126/95 10/07/20 18:10 O2 Sat by Pulse Oximetry 98 10/07/20 18:10 Pain Scale Pain Intensity 8 - [place] Coma Score Best Eye Response ([place]): (4) open spontaneously Best Verbal Response ([place]): (5) oriented Best Motor Response ([place]): (6) obeys commands [place] Total: 15 - Physical Exam General Appearance: no apparent distress Head Injury: no evidence of injury Eye Exam: PERRL/EOMI, eyes nml inspection ENT Exam: airway nml, No evidence of ENT injury, No clear fluid (ears), No clear fluid (nose) Neck Exam: supple, trachea midline, c-collar in place (C-spine nttp and removed after exam) Respiratory/Chest Exam: normal breath sounds, No respiratory distress, No splinting Cardiovascular Exam: normal heart sounds, regular rate/rhythm, normal peripheral pulses, No edema Gastrointestinal Exam: soft, normal bowel sounds, No tenderness, No distention Back Exam: normal inspection Extremity Exam: pelvis stable (L hip ttp wo shortening-external rotation/R 1st digit of hand ttp wo deformity, good radial pulse, distal sensation, and capillary return) Neurologic Exam: alert, oriented x 3, cooperative, dry color mixer II-XII nml as tested, normal mood/affect, sensation nml Skin Exam: normal color, warm, dry SpO2 Interpretation: normal SpO2: 98 O2 Delivery: Room Air - Radiology Exams Hand X-ray Interpretation: Interpreted by me (No fx) - CT Exams Abdomen/Pelvis CT Interpretation: Discussed w/radiologist (R intra-trochanteric hip fx/R 9-11 rib fx's) Ordered Tests: Active Orders 24 hr Category Date Time Status ABDOMEN AND PELVIS W/0 CONTRAS [CT] Stat Exams 10/07/20 18:15 Taken HAND (MINIMUM 3 VIEWS) Stat Exams 10/07/20 19:20 Taken Medication Summary Discontinued Medications Generic Name Dose Route Start Last Admin Trade Name Sergey PRN Reason Stop Dose Admin Fentanyl Citrate 50 mcg 10/07/20 20:10 Sublimaze 100 Mcg/2 Ml IV 10/07/20 20:11 STAT ONE Hydromorphone HCl 1 mg 10/07/20 20:33 10/07/20 20:35 Hydromorphone 1 Mg/Ml Injection IM 10/07/20 20:34 1 mg STAT ONE Administration Hydromorphone HCl Confirm 10/07/20 20:33 Hydromorphone 1 Mg/Ml Injection Administered 10/07/20 20:34 Dose 1 mg .ROUTE .STK-MED ONE Ondansetron HCl 4 mg 10/07/20 20:10 Zofran 4 Mg/2 Ml Vial IV 10/07/20 20:11 STAT ONE Ondansetron HCl 4 mg 10/07/20 20:34 10/07/20 20:36 Zofran Odt 4 Mg PO 10/07/20 20:35 4 mg STAT ONE Administration Ondansetron HCl Confirm 10/07/20 20:33 Zofran Odt 4 Mg Administered 10/07/20 20:34 Dose 4 mg .ROUTE .STK-MED ONE - Progress Progress Note: 10/07/20 20:[address] Mello 1mg IM Dilaudid/4mg Zofran odt Pt stable when EMS assumed care of pt 10/07/20 21:21 Counseled pt/family regarding: rad results - Departure Departure Disposition: Transfer Clinical Impression: Hip fx, Rib fractures, Contusion of hand Condition: Stable Critical Care Time: No Referrals: ERNESTINE MARQUEZ MD [Primary Care Provider] -
[2020-10-07 20:09] VITALS: BP 132/67; PULSE 91
[2020-10-07] MEDS ORDERED: SUBLIMAZE 100 MCG/2 ML IV ONE (20:10)
[2020-10-07] MEDS ORDERED: Zofran 4 MG/2 ML VIAL IV ONE (20:10)
[2020-10-07 20:14] VITALS: O2SAT 98
[2020-10-07] MEDS ORDERED: ZOFRAN ODT 4 MG ONE (20:33)
[2020-10-07] MEDS ORDERED: Hydromorphone 1 mg/ml Injection ONE (20:33)
[2020-10-07] MEDS ORDERED: Hydromorphone 1 mg/ml Injection IM ONE (20:33)
[2020-10-07] MEDS ORDERED: ZOFRAN ODT 4 MG PO ONE (20:34)
--- NOTE | 2020-10-08 08:55 | XRAY ---
Indication: Pain following fall. Comparison: None 3 view right hand demonstrates osteopenia and old distal radius fracture with tiny posterior heterotopic ossification. No other bony, articular, or soft tissue abnormalities.
--- NOTE | 2020-10-08 08:55 | XRAY ---
Indication: Right hip pain following fall. Multiple contiguous axial images obtained through the abdomen and pelvis without contrast. Comparison: March 02, 2020. Lung bases again demonstrates bibasilar subsegmental atelectasis and right middle lobe calcified granuloma. New nondisplaced right posterior 9-11 rib fractures with tiny hemothorax. Heart remains enlarged. Noncontrasted stomach and bowel loops remain nonobstructed. Stable splenic calcified granulomas, bilateral renal cysts, and hysterectomy. No free fluid/air. Remaining liver, gallbladder, pancreas, spleen, adrenal glands, kidneys, ureters, and bladder are unremarkable for noncontrast exam. Stable moderate aortoiliac calcifications without AAA. Osseous structures demonstrates new nondisplaced right greater trochanter fracture. Stable T11 Schmorl node. Impression: 1. New nondisplaced right greater trochanter fracture and right 9-11 rib fractures with tiny hemothorax. 2. Stable cardiomegaly, bilateral renal cysts, and old granulomatous disease.
== END 2020-10-07 20:49 | disposition short-term general hospital (02) ==
LOC: ED 18:04
DX: S72.001A Fracture of unspecified part of neck of right femur, initial encounter for closed fracture (principal); S60.221A Contusion of right hand, initial encounter; M25.551 Pain in right hip; M79.641 Pain in right hand; X58.XXXA Exposure to other specified factors, initial encounter; Y92.9 Unspecified place or not applicable; W18.30XA Fall on same level, unspecified, initial encounter; Y93.9 Activity, unspecified; Y92.039 Unspecified place in apartment as the place of occurrence of the external cause; I50.9 Heart failure, unspecified; I10 Essential (primary) hypertension; I25.2 Old myocardial infarction; M81.0 Age-related osteoporosis without current pathological fracture; K21.9 Gastro-esophageal reflux disease without esophagitis; F41.8 Other specified anxiety disorders; Z72.0 Tobacco use
CPT/HCPCS: 73130; 74176; 96372; 99285; J1170; Q0162